=== PATIENT | male | born 1945 | race Caucasian/White ===

== ENCOUNTER 2019-04-16 15:41 | Inpatient (IN) | payer OTHER ==
--- OUTSIDE RECORDS SUMMARY | 2019-04-16 15:48 | XMS REPORT ---
:1945 Author Organization [facility] Address [address] [place] [address] Care Team Providers Name Role Phone Unavailable Unavailable Unavailable Payers Payer Name Policy Type Policy Number Effective Date Expiration Date Problems This patient has no known problems. Allergies, Adverse Reactions, Alerts Allergy Allergy Status Severity Reaction(s) Onset Inactive Treating Comments Name Type Date Date Clinician No Known DA Active U 2018-03 Allergies 21 00:00:0 0 Medications This patient has no known medications. Results Test Description Test Time Test Comments Text Results Atomic Results Result Comments B-TYPE NATRIURETIC PEPTIDE 2019-03-17 13:50:00 Test Item Value Reference Range Comments B-TYPE NATRIURETIC PEPTIDE (test code=BNP) 3013.0 PG/ML 0-100 CBC W/AUTO [id number] 12:08:00 Test Item Value Reference Range Comments WHITE BLOOD CELL (test code=WBC) 3.5 K/MM3 3.8-9.8 RED BLOOD CELL (test code=RBC) 2.50 M/MM3 3.95-5.67 HEMOGLOBIN (test code=HGB) 8.3 G/DL 12.4-16.7 HEMATOCRIT (test code=HCT) 24.4 % 35.9-49.5 MEAN CELL VOLUME (test code=MCV) 98 fL 81.7-96.1 MEAN CELL HGB (test code=MCH) 33.2 pg 27.6-33.2 MEAN CELL HGB CONCETRATION (test code=MCHC) 34.0 % 32.9-35.5 RED CELL DISTRIBUTION WIDTH (test code=RDW) 20.4 % 12.1-15.2 PLATELET COUNT (test code=PLT) 236 K/MM3 129-368 MEAN PLATELET VOLUME (test code=MPV) 12.4 fl 7.4-10.4 NEUTROPHIL % (test code=NT%) 87.6 % 43-75 IMMATURE GRANULOCYTE % (test code=IG%) 2.0 % 0.0-2.0 LYMPHOCYTE % (test code=LY%) 6.2 % 14-44 MONOCYTE % (test code=MO%) 4.2 % 4-13 EOSINOPHIL % (test code=EO%) 0.0 % 0-6 BASOPHIL % (test code=BA%) 0 % 0-2 NUCLEATED RBC % (test code=NRBC%) 2.8 % 0-1.0 NEUTROPHIL # (test code=NT#) 3.09 K/mm3 2.0-7.6 IMMATURE GRANULOCYTE # (test code=IG#) 0.07 x10 3/uL 0-0.03 LYMPHOCYTE # (test code=LY#) 0.22 K/mm3 1.0-3.8 MONOCYTE # (test code=MO#) 0.15 K/mm3 0.1-0.8 EOSINOPHIL # (test code=EO#) 0.00 K/mm3 0.0-0.2 BASOPHIL # (test code=BA#) 0 K/mm3 0.0-0.2 NUCLEATED RBC # (test code=NRBC#) 0.10 K/mm3 0.0-0.1 NUCLEATED RED BLOOD CELL (test code=NRBC) 13 0-0 DIFFERENTIAL [id number] 12:08:00 Test Item Value Reference Range Comments RBC MORPHOLOGY REQUIRED (test code=RBCM) ABNORMAL POIKILOCYTOSIS (test code=POIK) FEW NONE ANISOCYTOSIS (test code=ANISO) MODERATE NONE MACROCYTOSIS (test code=MACR) MODERATE NONE TARGET CELLS (test code=TGT) FEW NONE ELLIPTOCYTES (test code=ELL) FEW NONE OVALOCYTES (test code=OVAL) FEW NONE SCHISTOCYTES (test code=ASHLEY) FEW NONE PLATELET ESTIMATE (test code=PLTEST) ADEQUATE ADEQUATE PLATELET MORPHOLOGY (test code=PLTMORPH) NORMAL NORMAL BASIC METABOLIC [id number] 11:45:00 Test Item Value Reference Range Comments SODIUM (test code=NA) 126 MMOL/L 137-145 POTASSIUM (test code=K) 4.3 MMOL/L 3.5-5.1 CHLORIDE (test code=CL) 93 MMOL/L 98-107 CARBON DIOXIDE (test code=CO2) 28 MMOL/L 22-30 ANION GAP (test code=GAP) 9 MMOL/L 14-24 GLUCOSE (test code=GLU) 276 MG/DL 74-106 BLOOD UREA NITROGEN (test 63 MG/DL 9-20 code=BUN) GLOMERULAR FILTRATION RATE 30 Reporting units: ml/min/1.73 (test code=GFR) m2 (Modified MDRD Formula)Reference Range: > or=60 ml/min/1.73 m2 CREATININE (test code=CREAT) 2.20 MG/DL 0.66-1.25 CALCIUM (test code=CA) 7.5 MG/DL 8.4-10.2 [id number] 11:45:00 Test Item Value Reference Range Comments PHOSPHOROUS (test code=PHOS) 3.1 MG/DL 2.5-4.5 [id number] 11:45:00 Test Item Value Reference Range Comments MAGNESIUM (test code=MAG) 1.9 MG/DL 1.6-2.3 CBC W/AUTO [id number] 11:26:00 Test Item Value Reference Range Comments WHITE BLOOD CELL (test code=WBC) 3.5 K/MM3 3.8-9.8 RED BLOOD CELL (test code=RBC) 2.50 M/MM3 3.95-5.67 HEMOGLOBIN (test code=HGB) 8.3 G/DL 12.4-16.7 HEMATOCRIT (test code=HCT) 24.4 % 35.9-49.5 MEAN CELL VOLUME (test code=MCV) 98 fL 81.7-96.1 MEAN CELL HGB (test code=MCH) 33.2 pg 27.6-33.2 MEAN CELL HGB CONCETRATION (test code=MCHC) 34.0 % 32.9-35.5 RED CELL DISTRIBUTION WIDTH (test code=RDW) 20.4 % 12.1-15.2 PLATELET COUNT (test code=PLT) 236 K/MM3 129-368 MEAN PLATELET VOLUME (test code=MPV) 12.4 fl 7.4-10.4 NEUTROPHIL % (test code=NT%) 87.6 % 43-75 IMMATURE GRANULOCYTE % (test code=IG%) 2.0 % 0.0-2.0 LYMPHOCYTE % (test code=LY%) 6.2 % 14-44 MONOCYTE % (test code=MO%) 4.2 % 4-13 EOSINOPHIL % (test code=EO%) 0.0 % 0-6 BASOPHIL % (test code=BA%) 0 % 0-2 NUCLEATED RBC % (test code=NRBC%) 2.8 % 0-1.0 NEUTROPHIL # (test code=NT#) 3.09 K/mm3 2.0-7.6 IMMATURE GRANULOCYTE # (test code=IG#) 0.07 x10 3/uL 0-0.03 LYMPHOCYTE # (test code=LY#) 0.22 K/mm3 1.0-3.8 MONOCYTE # (test code=MO#) 0.15 K/mm3 0.1-0.8 EOSINOPHIL # (test code=EO#) 0.00 K/mm3 0.0-0.2 BASOPHIL # (test code=BA#) 0 K/mm3 0.0-0.2 NUCLEATED RBC # (test code=NRBC#) 0.10 K/mm3 0.0-0.1 DIFFERENTIAL [id number] 11:26:00 Test Item Value Reference Range Comments RBC MORPHOLOGY REQUIRED (test code=RBCM) PLATELET ESTIMATE (test code=PLTEST) ADEQUATE PLATELET MORPHOLOGY (test code=PLTMORPH) NORMAL CBC W/AUTO [id number] 11:26:00 Test Item Value Reference Range Comments WHITE BLOOD CELL (test code=WBC) 3.5 K/MM3 3.8-9.8 RED BLOOD CELL (test code=RBC) 2.50 M/MM3 3.95-5.67 HEMOGLOBIN (test code=HGB) 8.3 G/DL 12.4-16.7 HEMATOCRIT (test code=HCT) 24.4 % 35.9-49.5 MEAN CELL VOLUME (test code=MCV) 98 fL 81.7-96.1 MEAN CELL HGB (test code=MCH) 33.2 pg 27.6-33.2 MEAN CELL HGB CONCETRATION (test code=MCHC) 34.0 % 32.9-35.5 RED CELL DISTRIBUTION WIDTH (test code=RDW) 20.4 % 12.1-15.2 PLATELET COUNT (test code=PLT) 236 K/MM3 129-368 MEAN PLATELET VOLUME (test code=MPV) 12.4 fl 7.4-10.4 NEUTROPHIL % (test code=NT%) 87.6 % 43-75 IMMATURE GRANULOCYTE % (test code=IG%) 2.0 % 0.0-2.0 LYMPHOCYTE % (test code=LY%) 6.2 % 14-44 MONOCYTE % (test code=MO%) 4.2 % 4-13 EOSINOPHIL % (test code=EO%) 0.0 % 0-6 BASOPHIL % (test code=BA%) 0 % 0-2 NUCLEATED RBC % (test code=NRBC%) 2.8 % 0-1.0 NEUTROPHIL # (test code=NT#) 3.09 K/mm3 2.0-7.6 IMMATURE GRANULOCYTE # (test code=IG#) 0.07 x10 3/uL 0-0.03 LYMPHOCYTE # (test code=LY#) 0.22 K/mm3 1.0-3.8 MONOCYTE # (test code=MO#) 0.15 K/mm3 0.1-0.8 EOSINOPHIL # (test code=EO#) 0.00 K/mm3 0.0-0.2 BASOPHIL # (test code=BA#) 0 K/mm3 0.0-0.2 NUCLEATED RBC # (test code=NRBC#) 0.10 K/mm3 0.0-0.1 DIFFERENTIAL [id number] 11:26:00 Test Item Value Reference Range Comments RBC MORPHOLOGY REQUIRED (test code=RBCM) PLATELET ESTIMATE (test code=PLTEST) ADEQUATE PLATELET MORPHOLOGY (test code=PLTMORPH) NORMAL GLUCOSE BEDSIDE [id number] 11:25:00 Test Item Value Reference Range Comments GLUCOSE BEDSIDE TESTING (test code=GLUBED) 290 MG/DL 60-99 GLUCOSE BEDSIDE [id number] 07:42:00 Test Item Value Reference Range Comments GLUCOSE BEDSIDE TESTING (test code=GLUBED) 242 MG/DL 60-99 - XR CHEST [id number] 07:28:00 Patient Name: SOLO REARDON Unit No: [id number] EXAMS: CPT CODE: [id number] XR CHEST 1V 45978 Portable AP Chest, 1 view Location Code: B2 CLINICAL HISTORY: CHF COMPARISON: 03/16/2019, CT dated 03/11/2019 FINDINGS: Left lowerlobe consolidation with small adjacent effusion is stable. Trace effusion with mild right basilar airspace disease is suspected, as well. Background mild central congestion remains. Emphysematous changes again noted. Cardiomegaly is stable. Calcification of the aortic arch again noted. The bones are intact. IMPRESSION : 1. Stable left greater than right bilateral lower lobe atelectasis and/or pneumonia with small adjacent effusions. 2. Moderate emphysema. 3. Cardiomegaly and atherosclerosis. Electronically Signed by Elvis Mehta on at 0728 Reported and signed by: Rolando Mehta M.D. CC: Adam Weber MD; Aubrey Oliva Technologist: Antonio Macias, RT(R) Transcrpt Date/Tm/Trnsp: 03/17/2019 (07) [id number] Orig Print D/T: S: 03/17/2019 (0731) [facility] NAME: SOLO REARDON [id number] PHYS: [place] [address] : 1945 AGE: 73 SEX: M LOC: Z.344 A PHONE #: [phone] EXAM DATE: 03/17/2019 STATUS: ADM IN FAX #: [phone] RADIOLOGY NO: PAGE 1 Signed ReportGLUCOSE BEDSIDE [id number] 21:26:00 Test Item Value Reference Range Comments GLUCOSE BEDSIDE TESTING (test code=GLUBED) 288 MG/DL 60-99 GLUCOSE BEDSIDE [id number] 16:55:00 Test Item Value Reference Range Comments GLUCOSE BEDSIDE TESTING (test code=GLUBED) 244 MG/DL 60-99 GLUCOSE BEDSIDE [id number] 12:42:00 Test Item Value Reference Range Comments GLUCOSE BEDSIDE TESTING (test code=GLUBED) 224 MG/DL 60-99 - XR CHEST [id number] 12:05:00 Patient Name: SOLO REARDON Luis Unit No: [id number] EXAMS: CPT CODE: [id number] XR CHEST 1V 29740 Examination: Chest 1 view Location code: S17 Comparison: Chest March 11, 2019 Discussion: Clinical history is remarkable for shortness of breath, CHF, pneumonia. Cardiac silhouette is enlarged, basilar atelectaticchanges versus infiltrates are noted. There is a small left effusion. Impression: Lateral basilar atelectasis versus infiltrate, small left effusion. at 1205 Reported and signed by: Corona Patel M.D. CC: Yg Betancur; Adam Hernandez MD Technologist: Joya Lee RT (R) Transcrpt Date/Tm/Trnsp: 03/16/2019 (1205) [id number] Orig Print D/T: S: 03/16/2019 (0321) [facility] NAME: SOLO REARDON [address] PHYS: [email or web address] - [place] [address] : 1945 AGE: 73 SEX: M LOC: Z.344 A PHONE #: [phone] EXAM DATE: STATUS: ADM IN FAX #: [phone] RADIOLOGY NO: PAGE 1 Signed ReportGLUCOSE BEDSIDE [id number] 08:17:00 Test Item Value Reference Range Comments GLUCOSE BEDSIDE TESTING (test code=GLUBED) 165 MG/DL 60-99 B-TYPE NATRIURETIC [id number] 05:56:00 Test Item Value Reference Range Comments B-TYPE NATRIURETIC PEPTIDE (test code=BNP) 3495.0 PG/ML 0-100 BASIC METABOLIC [id number] 05:38:00 Test Item Value Reference Range Comments SODIUM (test code=NA) 127 MMOL/L 137-145 POTASSIUM (test code=K) 4.3 MMOL/L 3.5-5.1 CHLORIDE (test code=CL) 95 MMOL/L 98-107 CARBON DIOXIDE (test code=CO2) 27 MMOL/L 22-30 ANION GAP (test code=GAP) 9 MMOL/L 14-24 GLUCOSE (test code=GLU) 133 MG/DL 74-106 BLOOD UREA NITROGEN (test 53 MG/DL 9-20 code=BUN) GLOMERULAR FILTRATION RATE 28 Reporting units: ml/min/1.73 (test code=GFR) m2 (Modified MDRD Formula)Reference Range: > or=60 ml/min/1.73 m2 CREATININE (test code=CREAT) 2.30 MG/DL 0.66-1.25 CALCIUM (test code=CA) 7.5 MG/DL 8.4-10.2 BASIC METABOLIC [id number] 05:29:00 Test Item Value Reference Range Comments SODIUM (test code=NA) 127 MMOL/L 137-145 POTASSIUM (test code=K) 4.3 MMOL/L 3.5-5.1 CHLORIDE (test code=CL) 95 MMOL/L 98-107 CARBON DIOXIDE (test code=CO2) MMOL/L 22-30 GLUCOSE (test code=GLU) MG/DL 74-106 BLOOD UREA NITROGEN (test code=BUN) MG/DL 9-20 GLOMERULAR FILTRATION RATE (test code=GFR) CREATININE (test code=CREAT) MG/DL 0.66-1.25 CALCIUM (test code=CA) MG/DL 8.7-9.7 BASIC METABOLIC [id number] 05:28:00 Test Item Value Reference Range Comments SODIUM (test code=NA) MMOL/L 137-145 POTASSIUM (test code=K) MMOL/L 3.5-5.1 CHLORIDE (test code=CL) 95 MMOL/L 98-107 CARBON DIOXIDE (test code=CO2) MMOL/L 22-30 GLUCOSE (test code=GLU) MG/DL 74-106 BLOOD UREA NITROGEN (test code=BUN) MG/DL 9-20 GLOMERULAR FILTRATION RATE (test code=GFR) CREATININE (test code=CREAT) MG/DL 0.66-1.25 CALCIUM (test code=CA) MG/DL 8.7-9.7 CBC W/AUTO [id number] 05:17:00 Test Item Value Reference Range Comments WHITE BLOOD CELL (test code=WBC) 3.4 K/MM3 3.8-9.8 RED BLOOD CELL (test code=RBC) 2.48 M/MM3 3.95-5.67 HEMOGLOBIN (test code=HGB) 8.2 G/DL 12.4-16.7 HEMATOCRIT (test code=HCT) 24.6 % 35.9-49.5 MEAN CELL VOLUME (test code=MCV) 99 fL 81.7-96.1 MEAN CELL HGB (test code=MCH) 33.1 pg 27.6-33.2 MEAN CELL HGB CONCETRATION (test code=MCHC) 33.3 % 32.9-35.5 RED CELL DISTRIBUTION WIDTH (test code=RDW) 20.3 % 12.1-15.2 PLATELET COUNT (test code=PLT) 189 K/MM3 129-368 MEAN PLATELET VOLUME (test code=MPV) 12.6 fl 7.4-10.4 NEUTROPHIL % (test code=NT%) 79.7 % 43-75 IMMATURE GRANULOCYTE % (test code=IG%) 1.8 % 0.0-2.0 LYMPHOCYTE % (test code=LY%) 8.1 % 14-44 MONOCYTE % (test code=MO%) 10.4 % 4-13 EOSINOPHIL % (test code=EO%) 0.0 % 0-6 BASOPHIL % (test code=BA%) 0 % 0-2 NUCLEATED RBC % (test code=NRBC%) 3.6 % 0-1.0 NEUTROPHIL # (test code=NT#) 2.67 K/mm3 2.0-7.6 IMMATURE GRANULOCYTE # (test code=IG#) 0.06 x10 3/uL 0-0.03 LYMPHOCYTE # (test code=LY#) 0.27 K/mm3 1.0-3.8 MONOCYTE # (test code=MO#) 0.35 K/mm3 0.1-0.8 EOSINOPHIL # (test code=EO#) 0.00 K/mm3 0.0-0.2 BASOPHIL # (test code=BA#) 0 K/mm3 0.0-0.2 NUCLEATED RBC # (test code=NRBC#) 0.12 K/mm3 0.0-0.1 DIFFERENTIAL [id number] 05:17:00 Test Item Value Reference Range Comments RBC MORPHOLOGY REQUIRED (test code=RBCM) PLATELET ESTIMATE (test code=PLTEST) ADEQUATE PLATELET MORPHOLOGY (test code=PLTMORPH) NORMAL CBC W/AUTO [id number] 05:17:00 Test Item Value Reference Range Comments WHITE BLOOD CELL (test code=WBC) 3.4 K/MM3 3.8-9.8 RED BLOOD CELL (test code=RBC) 2.48 M/MM3 3.95-5.67 HEMOGLOBIN (test code=HGB) 8.2 G/DL 12.4-16.7 HEMATOCRIT (test code=HCT) 24.6 % 35.9-49.5 MEAN CELL VOLUME (test code=MCV) 99 fL 81.7-96.1 MEAN CELL HGB (test code=MCH) 33.1 pg 27.6-33.2 MEAN CELL HGB CONCETRATION (test code=MCHC) 33.3 % 32.9-35.5 RED CELL DISTRIBUTION WIDTH (test code=RDW) 20.3 % 12.1-15.2 PLATELET COUNT (test code=PLT) 189 K/MM3 129-368 MEAN PLATELET VOLUME (test code=MPV) 12.6 fl 7.4-10.4 NEUTROPHIL % (test code=NT%) 79.7 % 43-75 IMMATURE GRANULOCYTE % (test code=IG%) 1.8 % 0.0-2.0 LYMPHOCYTE % (test code=LY%) 8.1 % 14-44 MONOCYTE % (test code=MO%) 10.4 % 4-13 EOSINOPHIL % (test code=EO%) 0.0 % 0-6 BASOPHIL % (test code=BA%) 0 % 0-2 NUCLEATED RBC % (test code=NRBC%) 3.6 % 0-1.0 NEUTROPHIL # (test code=NT#) 2.67 K/mm3 2.0-7.6 IMMATURE GRANULOCYTE # (test code=IG#) 0.06 x10 3/uL 0-0.03 LYMPHOCYTE # (test code=LY#) 0.27 K/mm3 1.0-3.8 MONOCYTE # (test code=MO#) 0.35 K/mm3 0.1-0.8 EOSINOPHIL # (test code=EO#) 0.00 K/mm3 0.0-0.2 BASOPHIL # (test code=BA#) 0 K/mm3 0.0-0.2 NUCLEATED RBC # (test code=NRBC#) 0.12 K/mm3 0.0-0.1 DIFFERENTIAL [id number] 05:17:00 Test Item Value Reference Range Comments RBC MORPHOLOGY REQUIRED (test code=RBCM) PLATELET ESTIMATE (test code=PLTEST) ADEQUATE PLATELET MORPHOLOGY (test code=PLTMORPH) NORMAL GLUCOSE BEDSIDE [id number] 20:24:00 Test Item Value Reference Range Comments GLUCOSE BEDSIDE TESTING (test code=GLUBED) 323 MG/DL 60-99 Notified Nurse~ [id number] 18:16:00 Test Item Value Reference Range Comments VANCOMYCIN (test code=VANCO) 16.0 mcg/ML 5.0-26.0 GLUCOSE BEDSIDE [id number] 17:41:00 Test Item Value Reference Range Comments GLUCOSE BEDSIDE TESTING (test code=GLUBED) 281 MG/DL 60-99 GLUCOSE BEDSIDE [id number] 13:04:00 Test Item Value Reference Range Comments GLUCOSE BEDSIDE TESTING (test code=GLUBED) 312 MG/DL 60-99 Notified Nurse~ - XR SWLW FUNC W/C [id number] 12:23:00 Patient Name: SOLO REARDON Unit No: [id number] EXAMS: CPT CODE: [id number] XR SWLW FUNC W/C V [id number] EXAM: - XR SWLW FUNC W/C V Location: B2 HISTORY:Dysphagia COMPARISON: None available at time of interpretation. FINDINGS: Fluoroscopy time: 1.1 minutes. One fluoroscopic image obtained. Fluoroscopic images of the oral cavity, pharynx, and upper airway while the patient ingested multiple consistencies of barium. No aspiration or penetration was seen. IMPRESSION: No aspiration or penetration. Please refer to speech pathologist report for full details. at 1223 Reported and signed by: Dominique Harmon MD CC: Dilshad Harvey MD; Adam Hernandez MD Technologist: Darrel Cruz, RT(R) Transcrpt Date/Tm/Trnsp: 03/15/2019 (1223) [email or web address] Orig Print D/T : S: 03/15/2019 (1226) [facility] NAME: SOLO REARDON [address] PHYS: [place] [address] : 1944 AGE: 73 SEX: M LOC: Z.344 A PHONE #: [phone] EXAM DATE: 03/15/2019 STATUS: ADM IN FAX #: [phone] RADIOLOGY NO: PAGE 1 Signed ReportGLUCOSE BEDSIDE [id number] 08:26:00 Test Item Value Reference Range Comments GLUCOSE BEDSIDE TESTING (test code=GLUBED) 253 MG/DL 60-99 CBC W/MANUAL [id number] 07:42:00 Test Item Value Reference Range Comments WHITE BLOOD CELL (test code=WBC) 3.0 K/MM3 3.8-9.8 RED BLOOD CELL (test code=RBC) 2.50 M/MM3 3.95-5.67 HEMOGLOBIN (test code=HGB) 8.4 G/DL 12.4-16.7 HEMATOCRIT (test code=HCT) 24.8 % 35.9-49.5 MEAN CELL VOLUME (test code=MCV) 99 fL 81.7-96.1 MEAN CELL HGB (test code=MCH) 33.6 pg 27.6-33.2 MEAN CELL HGB CONCETRATION (test code=MCHC) 33.9 % 32.9-35.5 RED CELL DISTRIBUTION WIDTH (test code=RDW) 20.5 % 12.1-15.2 PLATELET COUNT (test code=PLT) 135 K/MM3 129-368 NEUTROPHIL # (test code=NT#) 2.44 K/mm3 2.0-7.6 IMMATURE GRANULOCYTE # (test code=IG#) 0.05 x10 3/uL 0-0.03 LYMPHOCYTE # (test code=LY#) 0.25 K/mm3 1.0-3.8 MONOCYTE # (test code=MO#) 0.29 K/mm3 0.1-0.8 EOSINOPHIL # (test code=EO#) 0.00 K/mm3 0.0-0.2 BASOPHIL # (test code=BA#) 0 K/mm3 0.0-0.2 NUCLEATED RBC # (test code=NRBC#) 0.09 K/mm3 0.0-0.1 RBC MORPHOLOGY REQUIRED (test code=RBCM) ABNORMAL TOTAL CELLS COUNTED (test code=TCC) 130 #CELLS SEGMENTED NEUTROPHILS (test code=SEG) 93.3 % 36.2-73.8 BAND NEUTROPHIL (test code=BAND) 0.8 % 0-10 LYMPHOCYTE (test code=LYMPH) 0.9 % 12.9-45.1 ATYPICAL LYMPH (test code=ALYMPH) 0.0 % 0-0 MONOCYTE (test code=MON) 4.2 % 0-11 NUCLEATED RED BLOOD CELL (test code=NRBC) 3 0-0 PLASMA CELL (test code=SUSANNAH) 0.8 % 0-48 POIKILOCYTOSIS (test code=POIK) FEW NONE ANISOCYTOSIS (test code=ANISO) MODERATE NONE MACROCYTOSIS (test code=MACR) FEW NONE PLATELET ESTIMATE (test code=PLTEST) ADEQUATE ADEQUATE PLATELET MORPHOLOGY (test code=PLTMORPH) NORMAL NORMAL B-TYPE NATRIURETIC [id number] 05:56:00 Test Item Value Reference Range Comments B-TYPE NATRIURETIC PEPTIDE (test code=BNP) 2478.0 PG/ML 0-100 BASIC METABOLIC [id number] 05:41:00 Test Item Value Reference Range Comments SODIUM (test code=NA) 126 MMOL/L 137-145 POTASSIUM (test code=K) 4.4 MMOL/L 3.5-5.1 CHLORIDE (test code=CL) 95 MMOL/L 98-107 CARBON DIOXIDE (test code=CO2) 25 MMOL/L 22-30 GLUCOSE (test code=GLU) 216 MG/DL 74-106 BLOOD UREA NITROGEN (test 45 MG/DL 9-20 code=BUN) GLOMERULAR FILTRATION RATE 26 Reporting units: ml/min/1.73 (test code=GFR) m2 (Modified MDRD Formula)Reference Range: > or=60 ml/min/1.73 m2 CREATININE (test code=CREAT) 2.50 MG/DL 0.66-1.25 CALCIUM (test code=CA) 7.4 MG/DL 8.4-10.2 [id number] 05:41:00 Test Item Value Reference Range Comments PHOSPHOROUS (test code=PHOS) 3.6 MG/DL 2.5-4.5 [id number] 05:41:00 Test Item Value Reference Range Comments MAGNESIUM (test code=MAG) 2.5 MG/DL 1.6-2.3 BASIC METABOLIC [id number] 05:39:00 Test Item Value Reference Range Comments SODIUM (test code=NA) 126 MMOL/L 137-145 POTASSIUM (test code=K) 4.4 MMOL/L 3.5-5.1 CHLORIDE (test code=CL) 95 MMOL/L 98-107 CARBON DIOXIDE (test code=CO2) 25 MMOL/L 22-30 GLUCOSE (test code=GLU) MG/DL 74-106 BLOOD UREA NITROGEN (test 45 MG/DL 9-20 code=BUN) GLOMERULAR FILTRATION RATE 26 Reporting units: ml/min/1.73 (test code=GFR) m2 (Modified MDRD Formula)Reference Range: > or=60 ml/min/1.73 m2 CREATININE (test code=CREAT) 2.50 MG/DL 0.66-1.25 CALCIUM (test code=CA) MG/DL 8.7-9.7 [id number] 05:39:00 Test Item Value Reference Range Comments PHOSPHOROUS (test code=PHOS) MG/DL 2.5-4.5 [id number] 05:39:00 Test Item Value Reference Range Comments MAGNESIUM (test code=MAG) MG/DL 1.6-2.3 BASIC METABOLIC [id number] 05:36:00 Test Item Value Reference Range Comments SODIUM (test code=NA) 126 MMOL/L 137-145 POTASSIUM (test code=K) 4.4 MMOL/L 3.5-5.1 CHLORIDE (test code=CL) 95 MMOL/L 98-107 CARBON DIOXIDE (test code=CO2) MMOL/L 22-30 GLUCOSE (test code=GLU) MG/DL 74-106 BLOOD UREA NITROGEN (test code=BUN) MG/DL 9-20 GLOMERULAR FILTRATION RATE (test code=GFR) CREATININE (test code=CREAT) MG/DL 0.66-1.25 CALCIUM (test code=CA) MG/DL 8.7-9.7 [id number] 05:36:00 Test Item Value Reference Range Comments PHOSPHOROUS (test code=PHOS) MG/DL 2.5-4.5 [id number] 05:36:00 Test Item Value Reference Range Comments MAGNESIUM (test code=MAG) MG/DL 1.6-2.3 CBC W/MANUAL [id number] 05:15:00 Test Item Value Reference Range Comments WHITE BLOOD CELL (test code=WBC) 3.0 K/MM3 3.8-9.8 RED BLOOD CELL (test code=RBC) 2.50 M/MM3 3.95-5.67 HEMOGLOBIN (test code=HGB) 8.4 G/DL 12.4-16.7 HEMATOCRIT (test code=HCT) 24.8 % 35.9-49.5 MEAN CELL VOLUME (test code=MCV) 99 fL 81.7-96.1 MEAN CELL HGB (test code=MCH) 33.6 pg 27.6-33.2 MEAN CELL HGB CONCETRATION (test code=MCHC) 33.9 % 32.9-35.5 RED CELL DISTRIBUTION WIDTH (test code=RDW) 20.5 % 12.1-15.2 PLATELET COUNT (test code=PLT) 135 K/MM3 129-368 NEUTROPHIL # (test code=NT#) 2.44 K/mm3 2.0-7.6 IMMATURE GRANULOCYTE # (test code=IG#) 0.05 x10 3/uL 0-0.03 LYMPHOCYTE # (test code=LY#) 0.25 K/mm3 1.0-3.8 MONOCYTE # (test code=MO#) 0.29 K/mm3 0.1-0.8 EOSINOPHIL # (test code=EO#) 0.00 K/mm3 0.0-0.2 BASOPHIL # (test code=BA#) 0 K/mm3 0.0-0.2 NUCLEATED RBC # (test code=NRBC#) 0.09 K/mm3 0.0-0.1 RBC MORPHOLOGY REQUIRED (test code=RBCM) TOTAL CELLS COUNTED (test code=TCC) #CELLS SEGMENTED NEUTROPHILS (test code=SEG) % 36.2-73.8 LYMPHOCYTE (test code=LYMPH) % 12.9-45.1 MONOCYTE (test code=MON) % 0-11 PLATELET ESTIMATE (test code=PLTEST) ADEQUATE PLATELET MORPHOLOGY (test code=PLTMORPH) NORMAL GLUCOSE BEDSIDE [id number] 20:23:00 Test Item Value Reference Range Comments GLUCOSE BEDSIDE TESTING (test code=GLUBED) 243 MG/DL 60-99 CBC W/O [id number] 07:35:00 Test Item Value Reference Range Comments WHITE BLOOD CELL (test 1.9 K/MM3 3.8-9.8 CALLED TO Britt Alberto Imu code=WBC) & READBACK ON 03/14/19 AT 0545 BY Albaro Chacon RED BLOOD CELL (test code=RBC) 2.62 M/MM3 3.95-5.67 HEMOGLOBIN (test code=HGB) 8.7 G/DL 12.4-16.7 HEMATOCRIT (test code=HCT) 25.3 % 35.9-49.5 MEAN CELL VOLUME (test 97 fL 81.7-96.1 code=MCV) MEAN CELL HGB (test code=MCH) 33.2 pg 27.6-33.2 MEAN CELL HGB CONCETRATION 34.4 % 32.9-35.5 (test code=MCHC) RED CELL DISTRIBUTION WIDTH 20.7 % 12.1-15.2 (test code=RDW) PLATELET COUNT (test code=PLT) 73 K/MM3 129-368 NEUTROPHIL # (test code=NT#) 1.57 K/mm3 2.0-7.6 IMMATURE GRANULOCYTE # (test 0.06 x10 3/uL 0-0.03 code=IG#) LYMPHOCYTE # (test code=LY#) 0.17 K/mm3 1.0-3.8 MONOCYTE # (test code=MO#) 0.08 K/mm3 0.1-0.8 EOSINOPHIL # (test code=EO#) 0.00 K/mm3 0.0-0.2 BASOPHIL # (test code=BA#) 0 K/mm3 0.0-0.2 NUCLEATED RBC # (test 0.05 K/mm3 0.0-0.1 code=NRBC#) DIFFERENTIAL [id number] 07:35:00 Test Item Value Reference Range Comments RBC MORPHOLOGY REQUIRED (test code=RBCM) ABNORMAL POLYCHROMASIA (test code=POLC) FEW NONE POIKILOCYTOSIS (test code=POIK) FEW NONE ANISOCYTOSIS (test code=ANISO) MODERATE NONE PLATELET ESTIMATE (test code=PLTEST) DECREASED ADEQUATE PLATELET MORPHOLOGY (test code=PLTMORPH) NORMAL NORMAL WBC [id number] 07:35:00 Test Item Value Reference Range Comments TOTAL CELLS COUNTED (test code=TCC) 130 #CELLS SEGMENTED NEUTROPHILS (test code=SEG) 91.5 % 36.2-73.8 BAND NEUTROPHIL (test code=BAND) 3.4 % 0-10 LYMPHOCYTE (test code=LYMPH) 1.7 % 12.9-45.1 ATYPICAL LYMPH (test code=ALYMPH) 0.9 % 0-0 MONOCYTE (test code=MON) 0.0 % 0-11 METAMYELOCYTE (test code=META) 0.8 % 0-0 MYELOCYTE (test code=MYELO) 0.8 % 0-0 PROMYELOCYTE (test code=PROM) 0.9 % 0-0 NUCLEATED RED BLOOD CELL (test code=NRBC) 2 0-0 B-TYPE NATRIURETIC [id number] 06:34:00 Test Item Value Reference Range Comments B-TYPE NATRIURETIC PEPTIDE (test code=BNP) 1270.0 PG/ML 0-100 BASIC METABOLIC [id number] 05:56:00 Test Item Value Reference Range Comments SODIUM (test code=NA) 126 MMOL/L 137-145 POTASSIUM (test code=K) 4.2 MMOL/L 3.5-5.1 CHLORIDE (test code=CL) 94 MMOL/L 98-107 CARBON DIOXIDE (test code=CO2) 26 MMOL/L 22-30 GLUCOSE (test code=GLU) 240 MG/DL 74-106 BLOOD UREA NITROGEN (test 40 MG/DL 9-20 code=BUN) GLOMERULAR FILTRATION RATE 22 Reporting units: ml/min/1.73 (test code=GFR) m2 (Modified MDRD Formula)Reference Range: > or=60 ml/min/1.73 m2 CREATININE (test code=CREAT) 2.80 MG/DL 0.66-1.25 CALCIUM (test code=CA) 7.4 MG/DL 8.4-10.2 [id number] 05:56:00 Test Item Value Reference Range Comments PHOSPHOROUS (test code=PHOS) 3.7 MG/DL 2.5-4.5 [id number] 05:56:00 Test Item Value Reference Range Comments MAGNESIUM (test code=MAG) 3.0 MG/DL 1.6-2.3 BASIC METABOLIC [id number] 05:55:00 Test Item Value Reference Range Comments SODIUM (test code=NA) 126 MMOL/L 137-145 POTASSIUM (test code=K) 4.2 MMOL/L 3.5-5.1 CHLORIDE (test code=CL) 94 MMOL/L 98-107 CARBON DIOXIDE (test code=CO2) 26 MMOL/L 22-30 GLUCOSE (test code=GLU) MG/DL 74-106 BLOOD UREA NITROGEN (test 40 MG/DL 9-20 code=BUN) GLOMERULAR FILTRATION RATE 22 Reporting units: ml/min/1.73 (test code=GFR) m2 (Modified MDRD Formula)Reference Range: > or=60 ml/min/1.73 m2 CREATININE (test code=CREAT) 2.80 MG/DL 0.66-1.25 CALCIUM (test code=CA) MG/DL 8.7-9.7 [id number] 05:55:00 Test Item Value Reference Range Comments PHOSPHOROUS (test code=PHOS) MG/DL 2.5-4.5 [id number] 05:55:00 Test Item Value Reference Range Comments MAGNESIUM (test code=MAG) MG/DL 1.6-2.3 BASIC METABOLIC [id number] 05:52:00 Test Item Value Reference Range Comments SODIUM (test code=NA) 126 MMOL/L 137-145 POTASSIUM (test code=K) 4.2 MMOL/L 3.5-5.1 CHLORIDE (test code=CL) 94 MMOL/L 98-107 CARBON DIOXIDE (test code=CO2) MMOL/L 22-30 GLUCOSE (test code=GLU) MG/DL 74-106 BLOOD UREA NITROGEN (test code=BUN) MG/DL 9-20 GLOMERULAR FILTRATION RATE (test code=GFR) CREATININE (test code=CREAT) MG/DL 0.66-1.25 CALCIUM (test code=CA) MG/DL 8.7-9.7 [id number] 05:52:00 Test Item Value Reference Range Comments PHOSPHOROUS (test code=PHOS) MG/DL 2.5-4.5 [id number] 05:52:00 Test Item Value Reference Range Comments MAGNESIUM (test code=MAG) MG/DL 1.6-2.3 CBC W/O [id number] 05:52:00 Test Item Value Reference Range Comments WHITE BLOOD CELL (test 1.9 K/MM3 3.8-9.8 CALLED TO Britt Alberto Imu code=WBC) & READBACK ON 03/14/19 AT 0545 BY Albaro Chacon RED BLOOD CELL (test code=RBC) 2.62 M/MM3 3.95-5.67 HEMOGLOBIN (test code=HGB) 8.7 G/DL 12.4-16.7 HEMATOCRIT (test code=HCT) 25.3 % 35.9-49.5 MEAN CELL VOLUME (test 97 fL 81.7-96.1 code=MCV) MEAN CELL HGB (test code=MCH) 33.2 pg 27.6-33.2 MEAN CELL HGB CONCETRATION 34.4 % 32.9-35.5 (test code=MCHC) RED CELL DISTRIBUTION WIDTH 20.7 % 12.1-15.2 (test code=RDW) PLATELET COUNT (test code=PLT) 73 K/MM3 129-368 NEUTROPHIL # (test code=NT#) 1.57 K/mm3 2.0-7.6 IMMATURE GRANULOCYTE # (test 0.06 x10 3/uL 0-0.03 code=IG#) LYMPHOCYTE # (test code=LY#) 0.17 K/mm3 1.0-3.8 MONOCYTE # (test code=MO#) 0.08 K/mm3 0.1-0.8 EOSINOPHIL # (test code=EO#) 0.00 K/mm3 0.0-0.2 BASOPHIL # (test code=BA#) 0 K/mm3 0.0-0.2 NUCLEATED RBC # (test 0.05 K/mm3 0.0-0.1 code=NRBC#) DIFFERENTIAL [id number] 05:52:00 Test Item Value Reference Range Comments RBC MORPHOLOGY REQUIRED (test code=RBCM) PLATELET ESTIMATE (test code=PLTEST) ADEQUATE PLATELET MORPHOLOGY (test code=PLTMORPH) NORMAL WBC [id number] 05:52:00 Test Item Value Reference Range Comments TOTAL CELLS COUNTED (test code=TCC) #CELLS SEGMENTED NEUTROPHILS (test code=SEG) % 36.2-73.8 LYMPHOCYTE (test code=LYMPH) % 12.9-45.1 MONOCYTE (test code=MON) % 0-11 CBC W/AUTO [id number] 05:52:00 Test Item Value Reference Range Comments WHITE BLOOD CELL (test 1.9 K/MM3 3.8-9.8 CALLED TO Britt Alberto Imu code=WBC) & READBACK ON 03/14/19 AT 0545 BY Albaro Chacon RED BLOOD CELL (test code=RBC) 2.62 M/MM3 3.95-5.67 HEMOGLOBIN (test code=HGB) 8.7 G/DL 12.4-16.7 HEMATOCRIT (test code=HCT) 25.3 % 35.9-49.5 MEAN CELL VOLUME (test 97 fL 81.7-96.1 code=MCV) MEAN CELL HGB (test code=MCH) 33.2 pg 27.6-33.2 MEAN CELL HGB CONCETRATION 34.4 % 32.9-35.5 (test code=MCHC) RED CELL DISTRIBUTION WIDTH 20.7 % 12.1-15.2 (test code=RDW) PLATELET COUNT (test code=PLT) 73 K/MM3 129-368 MEAN PLATELET VOLUME (test 12.0 fl 7.4-10.4 code=MPV) NEUTROPHIL % (test code=NT%) 83.5 % 43-75 IMMATURE GRANULOCYTE % (test 3.2 % 0.0-2.0 code=IG%) LYMPHOCYTE % (test code=LY%) 9.0 % 14-44 MONOCYTE % (test code=MO%) 4.3 % 4-13 EOSINOPHIL % (test code=EO%) 0.0 % 0-6 BASOPHIL % (test code=BA%) 0 % 0-2 NUCLEATED RBC % (test 2.7 % 0-1.0 code=NRBC%) NEUTROPHIL # (test code=NT#) 1.57 K/mm3 2.0-7.6 IMMATURE GRANULOCYTE # (test 0.06 x10 3/uL 0-0.03 code=IG#) LYMPHOCYTE # (test code=LY#) 0.17 K/mm3 1.0-3.8 MONOCYTE # (test code=MO#) 0.08 K/mm3 0.1-0.8 EOSINOPHIL # (test code=EO#) 0.00 K/mm3 0.0-0.2 BASOPHIL # (test code=BA#) 0 K/mm3 0.0-0.2 NUCLEATED RBC # (test 0.05 K/mm3 0.0-0.1 code=NRBC#) WBC [id number] 05:52:00 Test Item Value Reference Range Comments RBC MORPHOLOGY REQUIRED (test code=RBCM) TOTAL CELLS COUNTED (test code=TCC) #CELLS SEGMENTED NEUTROPHILS (test code=SEG) % 36.2-73.8 LYMPHOCYTE (test code=LYMPH) % 12.9-45.1 MONOCYTE (test code=MON) % 0-11 PLATELET ESTIMATE (test code=PLTEST) ADEQUATE PLATELET MORPHOLOGY (test code=PLTMORPH) NORMAL PROCALCITONIN (PCT)2019-03-13 20:47:00 Test Item Value Reference Range Comments PROCALCITONIN (PCT) (test 1.80 NG/ML PROCALCITONIN (PCT) NORMAL code=PROCAL) RANGE (ADULT):<0.05 NG/ML. - a concentration < 0.5 ng/mL represents a low risk ofsevere sepsis and/or septic shock. - a concentration > 2 ng/mL represents a high risk ofsevere sepsis and/or septic shock. Nevertheless, concentrations < 0.5 ng/mL do not exclude aninfection, on account of localized infections (withoutsystemic signs) which can be associated with such lowconcentrations, or a systemic infection in its initialstages (< 6 hours). Furthermore, increased procalcitonincan occur without infection. PCT concentrations between 0.5and 2.0 ng/mL should be interpreted taking into account thepatient's history. It is recommended to retest PCT within 6-24 hours if any concentrations < 2 ng/mL are obtained. GLUCOSE BEDSIDE [id number] 20:40:00 Test Item Value Reference Range Comments GLUCOSE BEDSIDE TESTING (test code=GLUBED) 192 MG/DL 60-99 GLUCOSE BEDSIDE [id number] 20:40:00 Test Item Value Reference Range Comments GLUCOSE BEDSIDE TESTING (test code=GLUBED) 198 MG/DL 60-99 [id number] 18:40:00 Test Item Value Reference Range Comments VANCOMYCIN (test code=VANCO) 11.8 mcg/ML 5.0-26.0 CBC W/O [id number] 12:33:00 Test Item Value Reference Range Comments WHITE BLOOD CELL (test 2.4 K/MM3 3.8-9.8 CALLED TO Aparna M & code=WBC) READBACK ON 03/13/19 AT 0439 BY Albaro Chacon RED BLOOD CELL (test code=RBC) 2.46 M/MM3 3.95-5.67 HEMOGLOBIN (test code=HGB) 8.2 G/DL 12.4-16.7 HEMATOCRIT (test code=HCT) 24.4 % 35.9-49.5 MEAN CELL VOLUME (test 99 fL 81.7-96.1 code=MCV) MEAN CELL HGB (test code=MCH) 33.3 pg 27.6-33.2 MEAN CELL HGB CONCETRATION 33.6 % 32.9-35.5 (test code=MCHC) RED CELL DISTRIBUTION WIDTH 21.2 % 12.1-15.2 (test code=RDW) PLATELET COUNT (test code=PLT) 46 K/MM3 129-368 CALLED TO [facility] & READBACK ON 03/13/19 AT 0439 BY Albaro Chacon NEUTROPHIL # (test code=NT#) 1.80 K/mm3 2.0-7.6 IMMATURE GRANULOCYTE # (test 0.09 x10 3/uL 0-0.03 code=IG#) LYMPHOCYTE # (test code=LY#) 0.30 K/mm3 1.0-3.8 MONOCYTE # (test code=MO#) 0.22 K/mm3 0.1-0.8 EOSINOPHIL # (test code=EO#) 0.01 K/mm3 0.0-0.2 BASOPHIL # (test code=BA#) 0 K/mm3 0.0-0.2 NUCLEATED RBC # (test 0.08 K/mm3 0.0-0.1 code=NRBC#) DIFFERENTIAL [id number] 12:33:00 Test Item Value Reference Range Comments RBC MORPHOLOGY REQUIRED (test code=RBCM) ABNORMAL POIKILOCYTOSIS (test code=POIK) FEW NONE ANISOCYTOSIS (test code=ANISO) MODERATE NONE MACROCYTOSIS (test code=MACR) FEW NONE TARGET CELLS (test code=TGT) FEW NONE PLATELET ESTIMATE (test code=PLTEST) DECREASED ADEQUATE PLATELET MORPHOLOGY (test code=PLTMORPH) NORMAL NORMAL WBC [id number] 12:33:00 Test Item Value Reference Range Comments TOTAL CELLS COUNTED (test code=TCC) 130 #CELLS SEGMENTED NEUTROPHILS (test code=SEG) 88.8 % 36.2-73.8 BAND NEUTROPHIL (test code=BAND) 0.9 % 0-10 LYMPHOCYTE (test code=LYMPH) 4.7 % 12.9-45.1 ATYPICAL LYMPH (test code=ALYMPH) 0.0 % 0-0 MONOCYTE (test code=MON) 2.8 % 0-11 MYELOCYTE (test code=MYELO) 1.9 % 0-0 PROMYELOCYTE (test code=PROM) 0.9 % 0-0 NUCLEATED RED BLOOD CELL (test code=NRBC) 15 0-0 GLUCOSE BEDSIDE [id number] 12:13:00 Test Item Value Reference Range Comments GLUCOSE BEDSIDE TESTING (test code=GLUBED) 145 MG/DL 60-99 GLUCOSE BEDSIDE [id number] 08:10:00 Test Item Value Reference Range Comments GLUCOSE BEDSIDE TESTING (test code=GLUBED) 93 MG/DL 60-99 GLUCOSE BEDSIDE [id number] 07:03:00 Test Item Value Reference Range Comments GLUCOSE BEDSIDE TESTING (test code=GLUBED) 106 MG/DL 60-99 [id number] 05:01:00 Test Item Value Reference Range Comments VANCOMYCIN (test code=VANCO) 15.6 mcg/ML 5.0-26.0 B-TYPE NATRIURETIC [id number] 04:52:00 Test Item Value Reference Range Comments B-TYPE NATRIURETIC PEPTIDE (test code=BNP) 1881.0 PG/ML 0-100 BASIC METABOLIC [id number] 04:51:00 Test Item Value Reference Range Comments SODIUM (test code=NA) 128 MMOL/L 137-145 POTASSIUM (test code=K) 3.2 MMOL/L 3.5-5.1 CHLORIDE (test code=CL) 96 MMOL/L 98-107 CARBON DIOXIDE (test code=CO2) 26 MMOL/L 22-30 GLUCOSE (test code=GLU) 106 MG/DL 74-106 BLOOD UREA NITROGEN (test 45 MG/DL 9-20 code=BUN) GLOMERULAR FILTRATION RATE 21 Reporting units: ml/min/1.73 (test code=GFR) m2 (Modified MDRD Formula)Reference Range: > or=60 ml/min/1.73 m2 CREATININE (test code=CREAT) 3.00 MG/DL 0.66-1.25 CALCIUM (test code=CA) 7.3 MG/DL 8.4-10.2 [id number] 04:51:00 Test Item Value Reference Range Comments PHOSPHOROUS (test code=PHOS) 3.7 MG/DL 2.5-4.5 [id number] 04:51:00 Test Item Value Reference Range Comments MAGNESIUM (test code=MAG) 1.5 MG/DL 1.6-2.3 BASIC METABOLIC [id number] 04:50:00 Test Item Value Reference Range Comments SODIUM (test code=NA) 128 MMOL/L 137-145 POTASSIUM (test code=K) 3.2 MMOL/L 3.5-5.1 CHLORIDE (test code=CL) 96 MMOL/L 98-107 CARBON DIOXIDE (test code=CO2) 26 MMOL/L 22-30 GLUCOSE (test code=GLU) 106 MG/DL 74-106 BLOOD UREA NITROGEN (test 45 MG/DL 9-20 code=BUN) GLOMERULAR FILTRATION RATE 21 Reporting units: ml/min/1.73 (test code=GFR) m2 (Modified MDRD Formula)Reference Range: > or=60 ml/min/1.73 m2 CREATININE (test code=CREAT) 3.00 MG/DL 0.66-1.25 CALCIUM (test code=CA) MG/DL 8.7-9.7 [id number] 04:50:00 Test Item Value Reference Range Comments PHOSPHOROUS (test code=PHOS) MG/DL 2.5-4.5 [id number] 04:50:00 Test Item Value Reference Range Comments MAGNESIUM (test code=MAG) MG/DL 1.6-2.3 BASIC METABOLIC [id number] 04:47:00 Test Item Value Reference Range Comments SODIUM (test code=NA) 128 MMOL/L 137-145 POTASSIUM (test code=K) 3.2 MMOL/L 3.5-5.1 CHLORIDE (test code=CL) 96 MMOL/L 98-107 CARBON DIOXIDE (test code=CO2) MMOL/L 22-30 GLUCOSE (test code=GLU) MG/DL 74-106 BLOOD UREA NITROGEN (test code=BUN) MG/DL 9-20 GLOMERULAR FILTRATION RATE (test code=GFR) CREATININE (test code=CREAT) MG/DL 0.66-1.25 CALCIUM (test code=CA) MG/DL 8.7-9.7 [id number] 04:47:00 Test Item Value Reference Range Comments PHOSPHOROUS (test code=PHOS) MG/DL 2.5-4.5 [id number] 04:47:00 Test Item Value Reference Range Comments MAGNESIUM (test code=MAG) MG/DL 1.6-2.3 CBC W/O [id number] 04:41:00 Test Item Value Reference Range Comments WHITE BLOOD CELL (test 2.4 K/MM3 3.8-9.8 CALLED TO Aparna Robins & code=WBC) READBACK ON 03/13/19 AT 0439 BY Albaro Chacon RED BLOOD CELL (test code=RBC) 2.46 M/MM3 3.95-5.67 HEMOGLOBIN (test code=HGB) 8.2 G/DL 12.4-16.7 HEMATOCRIT (test code=HCT) 24.4 % 35.9-49.5 MEAN CELL VOLUME (test 99 fL 81.7-96.1 code=MCV) MEAN CELL HGB (test code=MCH) 33.3 pg 27.6-33.2 MEAN CELL HGB CONCETRATION 33.6 % 32.9-35.5 (test code=MCHC) RED CELL DISTRIBUTION WIDTH 21.2 % 12.1-15.2 (test code=RDW) PLATELET COUNT (test code=PLT) 46 K/MM3 129-368 CALLED TO Aparna & READBACK ON 03/13/19 AT 0439 BY Albaro Chacon NEUTROPHIL # (test code=NT#) 1.80 K/mm3 2.0-7.6 IMMATURE GRANULOCYTE # (test 0.09 x10 3/uL 0-0.03 code=IG#) LYMPHOCYTE # (test code=LY#) 0.30 K/mm3 1.0-3.8 MONOCYTE # (test code=MO#) 0.22 K/mm3 0.1-0.8 EOSINOPHIL # (test code=EO#) 0.01 K/mm3 0.0-0.2 BASOPHIL # (test code=BA#) 0 K/mm3 0.0-0.2 NUCLEATED RBC # (test 0.08 K/mm3 0.0-0.1 code=NRBC#) DIFFERENTIAL [id number] 04:41:00 Test Item Value Reference Range Comments RBC MORPHOLOGY REQUIRED (test code=RBCM) PLATELET ESTIMATE (test code=PLTEST) ADEQUATE PLATELET MORPHOLOGY (test code=PLTMORPH) NORMAL WBC [id number] 04:41:00 Test Item Value Reference Range Comments TOTAL CELLS COUNTED (test code=TCC) #CELLS SEGMENTED NEUTROPHILS (test code=SEG) % 36.2-73.8 LYMPHOCYTE (test code=LYMPH) % 12.9-45.1 MONOCYTE (test code=MON) % 0-11 CBC W/AUTO [id number] 04:41:00 Test Item Value Reference Range Comments WHITE BLOOD CELL (test 2.4 K/MM3 3.8-9.8 CALLED TO [facility] & code=WBC) READBACK ON 03/13/19 AT 0439 BY Albaro Chacon RED BLOOD CELL (test code=RBC) 2.46 M/MM3 3.95-5.67 HEMOGLOBIN (test code=HGB) 8.2 G/DL 12.4-16.7 HEMATOCRIT (test code=HCT) 24.4 % 35.9-49.5 MEAN CELL VOLUME (test 99 fL 81.7-96.1 code=MCV) MEAN CELL HGB (test code=MCH) 33.3 pg 27.6-33.2 MEAN CELL HGB CONCETRATION 33.6 % 32.9-35.5 (test code=MCHC) RED CELL DISTRIBUTION WIDTH 21.2 % 12.1-15.2 (test code=RDW) PLATELET COUNT (test code=PLT) 46 K/MM3 129-368 CALLED TO [facility] & READBACK ON 03/13/19 AT 0439 BY Albaro Chacon MEAN PLATELET VOLUME (test 13.7 fl 7.4-10.4 code=MPV) NEUTROPHIL % (test code=NT%) 74.4 % 43-75 IMMATURE GRANULOCYTE % (test 3.7 % 0.0-2.0 code=IG%) LYMPHOCYTE % (test code=LY%) 12.4 % 14-44 MONOCYTE % (test code=MO%) 9.1 % 4-13 EOSINOPHIL % (test code=EO%) 0.4 % 0-6 BASOPHIL % (test code=BA%) 0 % 0-2 NUCLEATED RBC % (test 3.3 % 0-1.0 code=NRBC%) NEUTROPHIL # (test code=NT#) 1.80 K/mm3 2.0-7.6 IMMATURE GRANULOCYTE # (test 0.09 x10 3/uL 0-0.03 code=IG#) LYMPHOCYTE # (test code=LY#) 0.30 K/mm3 1.0-3.8 MONOCYTE # (test code=MO#) 0.22 K/mm3 0.1-0.8 EOSINOPHIL # (test code=EO#) 0.01 K/mm3 0.0-0.2 BASOPHIL # (test code=BA#) 0 K/mm3 0.0-0.2 NUCLEATED RBC # (test 0.08 K/mm3 0.0-0.1 code=NRBC#) WBC [id number] 04:41:00 Test Item Value Reference Range Comments RBC MORPHOLOGY REQUIRED (test code=RBCM) TOTAL CELLS COUNTED (test code=TCC) #CELLS SEGMENTED NEUTROPHILS (test code=SEG) % 36.2-73.8 LYMPHOCYTE (test code=LYMPH) % 12.9-45.1 MONOCYTE (test code=MON) % 0-11 PLATELET ESTIMATE (test code=PLTEST) ADEQUATE PLATELET MORPHOLOGY (test code=PLTMORPH) NORMAL GLUCOSE BEDSIDE [id number] 21:15:00 Test Item Value Reference Range Comments GLUCOSE BEDSIDE TESTING (test code=GLUBED) 171 MG/DL 60-99 GLUCOSE BEDSIDE [id number] 17:44:00 Test Item Value Reference Range Comments GLUCOSE BEDSIDE TESTING (test code=GLUBED) 195 MG/DL 60-99 GLUCOSE BEDSIDE [id number] 12:15:00 Test Item Value Reference Range Comments GLUCOSE BEDSIDE TESTING (test code=GLUBED) 182 MG/DL 60-99 B-TYPE NATRIURETIC [id number] 10:11:00 Test Item Value Reference Range Comments B-TYPE NATRIURETIC PEPTIDE (test code=BNP) 1295.0 PG/ML 0-100 UNABLE TO DRAW BLOOD, REASON: PT IS RECEIVING BLOODNOTIFIED PATIENT CARE STAFF: KEANU 03/12/19 AT 0428 BY Kym AlbertoCBC W/AUTO [id number] 09:37:00 Test Item Value Reference Range Comments WHITE BLOOD CELL (test 2.9 K/MM3 3.8-9.8 code=WBC) RED BLOOD CELL (test code=RBC) 2.55 M/MM3 3.95-5.67 HEMOGLOBIN (test code=HGB) 8.6 G/DL 12.4-16.7 HEMATOCRIT (test code=HCT) 25.4 % 35.9-49.5 MEAN CELL VOLUME (test 100 fL 81.7-96.1 code=MCV) MEAN CELL HGB (test code=MCH) 33.7 pg 27.6-33.2 MEAN CELL HGB CONCETRATION 33.9 % 32.9-35.5 (test code=MCHC) RED CELL DISTRIBUTION WIDTH 21.5 % 12.1-15.2 (test code=RDW) PLATELET COUNT (test code=PLT) 29 K/MM3 129-368 CALLED TO ALPHONSE Tran & READBACK ON 03/12/19 AT 0908 BY Александр Oconnell NEUTROPHIL % (test code=NT%) 80.6 % 43-75 IMMATURE GRANULOCYTE % (test 2.1 % 0.0-2.0 code=IG%) LYMPHOCYTE % (test code=LY%) 9.7 % 14-44 MONOCYTE % (test code=MO%) 7.3 % 4-13 EOSINOPHIL % (test code=EO%) 0.3 % 0-6 BASOPHIL % (test code=BA%) 0 % 0-2 NUCLEATED RBC % (test 2.8 % 0-1.0 code=NRBC%) NEUTROPHIL # (test code=NT#) 2.32 K/mm3 2.0-7.6 IMMATURE GRANULOCYTE # (test 0.06 x10 3/uL 0-0.03 code=IG#) LYMPHOCYTE # (test code=LY#) 0.28 K/mm3 1.0-3.8 MONOCYTE # (test code=MO#) 0.21 K/mm3 0.1-0.8 EOSINOPHIL # (test code=EO#) 0.01 K/mm3 0.0-0.2 BASOPHIL # (test code=BA#) 0 K/mm3 0.0-0.2 NUCLEATED RBC # (test 0.08 K/mm3 0.0-0.1 code=NRBC#) NUCLEATED RED BLOOD CELL (test 7 0-0 code=NRBC) UNABLE TO DRAW BLOOD, REASON: PT IS RECEIVING BLOOD NOTIFIED PATIENT CARE STAFF : KEANU 03/12/19 AT 0429 BY Kym AlbertoDIFFERENTIAL [id number] 09:37: 00 Test Item Value Reference Range Comments RBC MORPHOLOGY REQUIRED (test code=RBCM) ABNORMAL POIKILOCYTOSIS (test code=POIK) FEW NONE ANISOCYTOSIS (test code=ANISO) MANY NONE MACROCYTOSIS (test code=MACR) FEW NONE PLATELET ESTIMATE (test code=PLTEST) DECREASED ADEQUATE PLATELET MORPHOLOGY (test code=PLTMORPH) NORMAL NORMAL UNABLE TO DRAW BLOOD, REASON: PT IS RECEIVING BLOOD NOTIFIED PATIENT CARE STAFF : [facility] 03/12/19 AT 0429 BY Kym AlbertoCOMPREHENSIVE METABOLIC [id number] 09:37:00 Test Item Value Reference Range Comments SODIUM (test code=NA) 127 MMOL/L 137-145 POTASSIUM (test code=K) 3.5 MMOL/L 3.5-5.1 CHLORIDE (test code=CL) 93 MMOL/L 98-107 CARBON DIOXIDE (test code=CO2) 26 MMOL/L 22-30 ANION GAP (test code=GAP) 12 MMOL/L 14-24 GLUCOSE (test code=GLU) 114 MG/DL 74-106 BLOOD UREA NITROGEN (test 49 MG/DL 9-20 code=BUN) GLOMERULAR FILTRATION RATE 20 Reporting units: (test code=GFR) ml/min/1.73 m2 (Modified MDRD Formula)Reference Range: > or=60 ml/min/1.73 m2 CREATININE (test code=CREAT) 3.10 MG/DL 0.66-1.25 TOTAL PROTEIN (test code=PROT) 4.2 G/DL 6.2-7.6 ALBUMIN (test code=ALB) 2.1 G/DL 3.5-5.0 CALCIUM (test code=CA) 7.5 MG/DL 8.4-10.2 BILIRUBIN TOTAL (test 1.1 MG/DL 0.2-1.3 code=BILT) SGOT/AST (test code=AST) 43 UNITS/L 17-59 SGPT/ALT (test code=ALT) 23 UNITS/L <50 ALKALINE PHOSPHATASE (test 195 UNITS/L 38-126 code=ALKP) UNABLE TO DRAW BLOOD, REASON: PT IS RECEIVING BLOODNOTIFIED PATIENT CARE STAFF: [facility] 03/12/19 AT 0427 BY Kym [id number] 09:37:00 Test Item Value Reference Range Comments PHOSPHOROUS (test code=PHOS) 3.6 MG/DL 2.5-4.5 UNABLE TO DRAW BLOOD, REASON: PT IS RECEIVING BLOODNOTIFIED PATIENT CARE STAFF: [facility] 03/12/19 AT 0427 BY Kym [id number] 09:37:00 Test Item Value Reference Range Comments MAGNESIUM (test code=MAG) 1.5 MG/DL 1.6-2.3 UNABLE TO DRAW BLOOD, REASON: PT IS RECEIVING BLOODNOTIFIED [facility] 03/12/19 AT 0427 BY Kym AlbertoPROTHROMBIN [id number] 09:28:00 Test Item Value Reference Range Comments PROTHROMBIN TIME PATIENT (test 26.3 SECONDS 9.6-11.6 code=PTP) INTERNATIONAL NORMAL RATIO 2.6 0.8-1.1 The INR is to be used only (test code=INR) for monitoring oral anticoagulanttherapy. INDICATION INR VALUE 1. Prophylaxis, deep venous thrombosis, including high risk surgery. 2.0 - 3.0 2. Prophylaxis, deep venous thrombosis, hip surgery, treatment for deep venous thrombosis or pulmonary prevention of systemic embolism in patients with valvular heart disease, atrial fibrillation, tissue heart valve, or acute myocardial infarction. 2.0 - 3.0 3. Mechanical prosthesis heart valves, recurrent systemic embolism. 3.0 - 4.5 UNABLE TO DRAW BLOOD, REASON: PT IS RECEIVING BLOOD NOTIFIED [facility]19 AT 0428 BY Kym AlbertoPTT [id number] 09:28:00 Test Item Value Reference Range Comments PTT ACTIVATED (test 76.6 SECONDS 22.0-33.0 CALLED TO ALPHONSE Tran& code=APTT) READBACK ON 03/12/19 AT 0927 BY Walter Oconnell NOT ON HEPARIN PER ALPHONSE MARIE UNABLE TO DRAW BLOOD, REASON: PT IS RECEIVING BLOOD NOTIFIED PATIENT CARE STAFF : [facility] 03/12/19 AT 0428 BY Kym AlbertoCOMPREHENSIVE METABOLIC [id number] 09:23:00 Test Item Value Reference Range Comments SODIUM (test code=NA) 127 MMOL/L 137-145 POTASSIUM (test code=K) 3.5 MMOL/L 3.5-5.1 CHLORIDE (test code=CL) 93 MMOL/L 98-107 CARBON DIOXIDE (test code=CO2) MMOL/L 22-30 GLUCOSE (test code=GLU) MG/DL 74-106 BLOOD UREA NITROGEN (test code=BUN) MG/DL 9-20 GLOMERULAR FILTRATION RATE (test code=GFR) CREATININE (test code=CREAT) MG/DL 0.66-1.25 TOTAL PROTEIN (test code=PROT) G/DL 6.2-7.6 ALBUMIN (test code=ALB) 2.1 G/DL 3.5-5.0 CALCIUM (test code=CA) MG/DL 8.7-9.7 BILIRUBIN TOTAL (test code=BILT) MG/DL 0.2-1.3 SGOT/AST (test code=AST) UNITS/L 15-37 SGPT/ALT (test code=ALT) UNITS/L <50 ALKALINE PHOSPHATASE (test code=ALKP) UNITS/L 38-126 UNABLE TO DRAW BLOOD, REASON: PT IS RECEIVING BLOODNOTIFIED PATIENT CARE STAFF: [facility] 03/12/19 AT [facility] BY Kym [id number] 09:23:00 Test Item Value Reference Range Comments PHOSPHOROUS (test code=PHOS) MG/DL 2.5-4.5 UNABLE TO DRAW BLOOD, REASON: PT IS RECEIVING BLOODNOTIFIED PATIENT CARE STAFF: [facility] 03/12/19 AT [facility] BY Kym [id number] 09:23:00 Test Item Value Reference Range Comments MAGNESIUM (test code=MAG) MG/DL 1.6-2.3 UNABLE TO DRAW BLOOD, REASON: PT IS RECEIVING BLOODNOTIFIED PATIENT CARE STAFF: [facility] 03/12/19 AT [facility] BY Kym AlbertoCOMPREHENSIVE METABOLIC [id number] 09:22:00 Test Item Value Reference Range Comments SODIUM (test code=NA) MMOL/L 137-145 POTASSIUM (test code=K) MMOL/L 3.5-5.1 CHLORIDE (test code=CL) 93 MMOL/L 98-107 CARBON DIOXIDE (test code=CO2) MMOL/L 22-30 GLUCOSE (test code=GLU) MG/DL 74-106 BLOOD UREA NITROGEN (test code=BUN) MG/DL 9-20 GLOMERULAR FILTRATION RATE (test code=GFR) CREATININE (test code=CREAT) MG/DL 0.66-1.25 TOTAL PROTEIN (test code=PROT) G/DL 6.2-7.6 ALBUMIN (test code=ALB) 2.1 G/DL 3.5-5.0 CALCIUM (test code=CA) MG/DL 8.7-9.7 BILIRUBIN TOTAL (test code=BILT) MG/DL 0.2-1.3 SGOT/AST (test code=AST) UNITS/L 15-37 SGPT/ALT (test code=ALT) UNITS/L <50 ALKALINE PHOSPHATASE (test code=ALKP) UNITS/L 38-126 UNABLE TO DRAW BLOOD, REASON: PT IS RECEIVING BLOODNOTIFIED PATIENT CARE STAFF: [facility] 03/12/19 AT [facility] BY Kym [id number] 09:22:00 Test Item Value Reference Range Comments PHOSPHOROUS (test code=PHOS) MG/DL 2.5-4.5 UNABLE TO DRAW BLOOD, REASON: PT IS RECEIVING BLOODNOTIFIED PATIENT CARE STAFF: [facility] 03/12/19 AT [facility] BY Kym [id number] 09:22:00 Test Item Value Reference Range Comments MAGNESIUM (test code=MAG) MG/DL 1.6-2.3 UNABLE TO DRAW BLOOD, REASON: PT IS RECEIVING BLOODNOTIFIED PATIENT CARE STAFF: [facility] 03/12/19 AT [facility] BY Kym AlbertoCBC W/AUTO [id number] 09:11:00 Test Item Value Reference Range Comments WHITE BLOOD CELL (test 2.9 K/MM3 3.8-9.8 code=WBC) RED BLOOD CELL (test code=RBC) 2.55 M/MM3 3.95-5.67 HEMOGLOBIN (test code=HGB) 8.6 G/DL 12.4-16.7 HEMATOCRIT (test code=HCT) 25.4 % 35.9-49.5 MEAN CELL VOLUME (test 100 fL 81.7-96.1 code=MCV) MEAN CELL HGB (test code=MCH) 33.7 pg 27.6-33.2 MEAN CELL HGB CONCETRATION 33.9 % 32.9-35.5 (test code=MCHC) RED CELL DISTRIBUTION WIDTH 21.5 % 12.1-15.2 (test code=RDW) PLATELET COUNT (test code=PLT) 29 K/MM3 129-368 CALLED TO ALPHONSE Tran & READBACK ON 03/12/19 AT 0908 BY Александр Oconnell NEUTROPHIL % (test code=NT%) 80.6 % 43-75 IMMATURE GRANULOCYTE % (test 2.1 % 0.0-2.0 code=IG%) LYMPHOCYTE % (test code=LY%) 9.7 % 14-44 MONOCYTE % (test code=MO%) 7.3 % 4-13 EOSINOPHIL % (test code=EO%) 0.3 % 0-6 BASOPHIL % (test code=BA%) 0 % 0-2 NUCLEATED RBC % (test 2.8 % 0-1.0 code=NRBC%) NEUTROPHIL # (test code=NT#) 2.32 K/mm3 2.0-7.6 IMMATURE GRANULOCYTE # (test 0.06 x10 3/uL 0-0.03 code=IG#) LYMPHOCYTE # (test code=LY#) 0.28 K/mm3 1.0-3.8 MONOCYTE # (test code=MO#) 0.21 K/mm3 0.1-0.8 EOSINOPHIL # (test code=EO#) 0.01 K/mm3 0.0-0.2 BASOPHIL # (test code=BA#) 0 K/mm3 0.0-0.2 NUCLEATED RBC # (test 0.08 K/mm3 0.0-0.1 code=NRBC#) UNABLE TO DRAW BLOOD, REASON: PT IS RECEIVING BLOOD NOTIFIED PATIENT CARE STAFF : [facility] 03/12/19 AT 0429 BY Kym AlbertoDIFFERENTIAL [id number] 09:11: 00 Test Item Value Reference Range Comments RBC MORPHOLOGY REQUIRED (test code=RBCM) PLATELET ESTIMATE (test code=PLTEST) ADEQUATE PLATELET MORPHOLOGY (test code=PLTMORPH) NORMAL UNABLE TO DRAW BLOOD, REASON: PT IS RECEIVING BLOOD NOTIFIED PATIENT CARE STAFF : [facility] 03/12/19 AT 0429 BY Kym AlbertoCBC W/AUTO [id number] 09:11:00 Test Item Value Reference Range Comments WHITE BLOOD CELL (test 2.9 K/MM3 3.8-9.8 code=WBC) RED BLOOD CELL (test code=RBC) 2.55 M/MM3 3.95-5.67 HEMOGLOBIN (test code=HGB) 8.6 G/DL 12.4-16.7 HEMATOCRIT (test code=HCT) 25.4 % 35.9-49.5 MEAN CELL VOLUME (test 100 fL 81.7-96.1 code=MCV) MEAN CELL HGB (test code=MCH) 33.7 pg 27.6-33.2 MEAN CELL HGB CONCETRATION 33.9 % 32.9-35.5 (test code=MCHC) RED CELL DISTRIBUTION WIDTH 21.5 % 12.1-15.2 (test code=RDW) PLATELET COUNT (test code=PLT) 29 K/MM3 129-368 CALLED TO ALPHONSE Tran & READBACK ON 03/12/19 AT 0908 BY Александр Oconnell NEUTROPHIL % (test code=NT%) 80.6 % 43-75 IMMATURE GRANULOCYTE % (test 2.1 % 0.0-2.0 code=IG%) LYMPHOCYTE % (test code=LY%) 9.7 % 14-44 MONOCYTE % (test code=MO%) 7.3 % 4-13 EOSINOPHIL % (test code=EO%) 0.3 % 0-6 BASOPHIL % (test code=BA%) 0 % 0-2 NUCLEATED RBC % (test 2.8 % 0-1.0 code=NRBC%) NEUTROPHIL # (test code=NT#) 2.32 K/mm3 2.0-7.6 IMMATURE GRANULOCYTE # (test 0.06 x10 3/uL 0-0.03 code=IG#) LYMPHOCYTE # (test code=LY#) 0.28 K/mm3 1.0-3.8 MONOCYTE # (test code=MO#) 0.21 K/mm3 0.1-0.8 EOSINOPHIL # (test code=EO#) 0.01 K/mm3 0.0-0.2 BASOPHIL # (test code=BA#) 0 K/mm3 0.0-0.2 NUCLEATED RBC # (test 0.08 K/mm3 0.0-0.1 code=NRBC#) UNABLE TO DRAW BLOOD, REASON: PT IS RECEIVING BLOOD NOTIFIED PATIENT CARE STAFF : KEANU 03/12/19 AT 0429 BY Kym AlbertoDIFFERENTIAL [id number] 09:11: 00 Test Item Value Reference Range Comments RBC MORPHOLOGY REQUIRED (test code=RBCM) PLATELET ESTIMATE (test code=PLTEST) ADEQUATE PLATELET MORPHOLOGY (test code=PLTMORPH) NORMAL UNABLE TO DRAW BLOOD, REASON: PT IS RECEIVING BLOOD NOTIFIED PATIENT CARE STAFF : [facility] 03/12/19 AT 0429 BY Kym AlbertoHGB [id number] 09:03:00 Test Item Value Reference Range Comments HEMOGLOBIN (test code=HGB) 8.6 G/DL 12.4-16.7 HEMATOCRIT (test code=HCT) 24.9 % 35.9-49.5 UNABLE TO DRAW BLOOD, REASON: PT IS RECEIVING BLOOD NOTIFIED PATIENT CARE STAFF : [facility] 03/12/19 AT 0429 BY Kym AlbertoGLUCOSE BEDSIDE [id number] 07:48:00 Test Item Value Reference Range Comments GLUCOSE BEDSIDE TESTING (test code=GLUBED) 128 MG/DL 60-99 GLUCOSE BEDSIDE [id number] 04:36:00 Test Item Value Reference Range Comments GLUCOSE BEDSIDE TESTING (test code=GLUBED) 249 MG/DL 60-99 HGB [id number] 00:02:00 Test Item Value Reference Range Comments HEMOGLOBIN (test code=HGB) 7.3 G/DL 12.4-16.7 HEMATOCRIT (test code=HCT) 22.0 % 35.9-49.5 UR CREATININE [id number] 21:21:00 Test Item Value Reference Range Comments UR CREATININE RANDOM (test code=CREATU) 49.3 URINALYSIS [id number] 21:20:00 Test Item Value Reference Range Comments UA COLOR (test code=COLU) YELLOW YELLOW UA APPEARANCE (test code=APPU) CLEAR CLEAR UA GLUCOSE DIPSTICK (test code=DGLUU) 50 MG/DL NORMAL UA BILIRUBIN DIPSTICK (test code=BILU) NEGATIVE MG/DL NEGATIVE UA KETONE DIPSTICK (test code=KETU) NEGATIVE MG/DL NEGATIVE UA SPECIFIC GRAVITY (test code=SGU) 1.010 1.003-1.030 UA BLOOD DIPSTICK (test code=BRIDGETT) 150 Sylvester/mm3 NEGATIVE UA PH DIPSTICK (test code=KAROLYN) 7.0 5.0-9.0 UA PROTEIN DIPSTICK (test code=PROU) 100 MG/DL NEGATIVE UA UROBILINIOGEN DIPSTICK (test NORMAL MG/DL NORMAL code=URO) UA NITRITE DIPSTICK (test code=MICHAEL) NEGATIVE NEGATIVE UA LEUKOCYTE ESTERASE DIPSTICK (test NEGATIVE /mm3 NEGATIVE code=LEUU) UA CULTURE NEEDED? (test code=UACULT) NO, WBC<10 Criteria Culture Chk SOURCE OF URINE: CLEAN CATCHUA [id number] 21:20:00 Test Item Value Reference Range Comments UA RBC (test code=RBCU) 10-20 RBC/HPF 0-3 UA WBC (test code=XWBCU) 0-3 WBC/HPF 0-5 UA EPITHELIAL CELLS (test code=EPIU) FEW EPI/HPF FEW UA BACTERIA (test code=XBACU) FEW NONE SOURCE OF URINE: CLEAN CATCHUR PROTEIN [id number] 21:20:00 Test Item Value Reference Range Comments UR PROTEIN RANDOM (test code=PROTU) 89 MG/DL 0-11.9 SOURCE OF URINE: CLEAN CATCHURINALYSIS [id number] 21:12:00 Test Item Value Reference Range Comments UA COLOR (test code=COLU) YELLOW YELLOW UA APPEARANCE (test code=APPU) CLEAR CLEAR UA GLUCOSE DIPSTICK (test code=DGLUU) 50 MG/DL NORMAL UA BILIRUBIN DIPSTICK (test code=BILU) NEGATIVE MG/DL NEGATIVE UA KETONE DIPSTICK (test code=KETU) NEGATIVE MG/DL NEGATIVE UA SPECIFIC GRAVITY (test code=SGU) 1.010 1.003-1.030 UA BLOOD DIPSTICK (test code=BRIDGETT) 150 Sylvester/mm3 NEGATIVE UA PH DIPSTICK (test code=KAROLYN) 7.0 5.0-9.0 UA PROTEIN DIPSTICK (test code=PROU) 100 MG/DL NEGATIVE UA UROBILINIOGEN DIPSTICK (test NORMAL MG/DL NORMAL code=URO) UA NITRITE DIPSTICK (test code=MICHAEL) NEGATIVE NEGATIVE UA LEUKOCYTE ESTERASE DIPSTICK (test NEGATIVE /mm3 NEGATIVE code=LEUU) UA CULTURE NEEDED? (test code=UACULT) NO, WBC<10 Criteria Culture Chk SOURCE OF URINE: CLEAN CATCHUA [id number] 21:12:00 Test Item Value Reference Range Comments UA RBC (test code=RBCU) 10-20 RBC/HPF 0-3 UA WBC (test code=XWBCU) 0-3 WBC/HPF 0-5 UA EPITHELIAL CELLS (test code=EPIU) FEW EPI/HPF FEW UA BACTERIA (test code=XBACU) FEW NONE SOURCE OF URINE: CLEAN CATCHUR PROTEIN [id number] 21:12:00 Test Item Value Reference Range Comments UR PROTEIN RANDOM (test code=PROTU) MG/DL 0-11.9 SOURCE OF URINE: CLEAN CATCHURINALYSIS [id number] 21:02:00 Test Item Value Reference Range Comments UA COLOR (test code=COLU) YELLOW YELLOW UA APPEARANCE (test code=APPU) CLEAR CLEAR UA GLUCOSE DIPSTICK (test code=DGLUU) 50 MG/DL NORMAL UA BILIRUBIN DIPSTICK (test code=BILU) NEGATIVE MG/DL NEGATIVE UA KETONE DIPSTICK (test code=KETU) NEGATIVE MG/DL NEGATIVE UA SPECIFIC GRAVITY (test code=SGU) 1.010 1.003-1.030 UA BLOOD DIPSTICK (test code=BRIDGETT) 150 Sylvester/mm3 NEGATIVE UA PH DIPSTICK (test code=KAROLYN) 7.0 5.0-9.0 UA PROTEIN DIPSTICK (test code=PROU) 100 MG/DL NEGATIVE UA UROBILINIOGEN DIPSTICK (test code=URO) NORMAL MG/DL NORMAL UA NITRITE DIPSTICK (test code=MICHAEL) NEGATIVE NEGATIVE UA LEUKOCYTE ESTERASE DIPSTICK (test NEGATIVE /mm3 NEGATIVE code=LEUU) UA CULTURE NEEDED? (test code=UACULT) Criteria Culture Chk SOURCE OF URINE: CLEAN CATCHUA [id number] 21:02:00 Test Item Value Reference Range Comments UA RBC (test code=RBCU) RBC/HPF 0-3 UA WBC (test code=XWBCU) WBC/HPF 0-5 UA EPITHELIAL CELLS (test code=EPIU) EPI/HPF FEW UA BACTERIA (test code=XBACU) NONE SOURCE OF URINE: CLEAN CATCHUR PROTEIN [id number] 21:02:00 Test Item Value Reference Range Comments UR PROTEIN RANDOM (test code=PROTU) MG/DL 0-11.9 SOURCE OF URINE: CLEAN CATCHURINALYSIS [id number] 21:02:00 Test Item Value Reference Range Comments UA COLOR (test code=COLU) YELLOW YELLOW UA APPEARANCE (test code=APPU) CLEAR CLEAR UA GLUCOSE DIPSTICK (test code=DGLUU) 50 MG/DL NORMAL UA BILIRUBIN DIPSTICK (test code=BILU) NEGATIVE MG/DL NEGATIVE UA KETONE DIPSTICK (test code=KETU) NEGATIVE MG/DL NEGATIVE UA SPECIFIC GRAVITY (test code=SGU) 1.010 1.003-1.030 UA BLOOD DIPSTICK (test code=BRIDGETT) 150 Sylvester/mm3 NEGATIVE UA PH DIPSTICK (test code=KAROLYN) 7.0 5.0-9.0 UA PROTEIN DIPSTICK (test code=PROU) 100 MG/DL NEGATIVE UA UROBILINIOGEN DIPSTICK (test code=URO) NORMAL MG/DL NORMAL UA NITRITE DIPSTICK (test code=MICHAEL) NEGATIVE NEGATIVE UA LEUKOCYTE ESTERASE DIPSTICK (test NEGATIVE /mm3 NEGATIVE code=LEUU) UA CULTURE NEEDED? (test code=UACULT) Criteria Culture Chk SOURCE OF URINE: CLEAN CATCHUA [id number] 21:02:00 Test Item Value Reference Range Comments UA RBC (test code=RBCU) RBC/HPF 0-3 UA WBC (test code=XWBCU) WBC/HPF 0-5 UA EPITHELIAL CELLS (test code=EPIU) EPI/HPF FEW UA BACTERIA (test code=XBACU) NONE SOURCE OF URINE: CLEAN CATCHUR PROTEIN [id number] 21:02:00 Test Item Value Reference Range Comments UR PROTEIN RANDOM (test code=PROTU) MG/DL 0-11.9 SOURCE OF URINE: CLEAN CATCHGLUCOSE BEDSIDE [id number] 20:31:00 Test Item Value Reference Range Comments GLUCOSE BEDSIDE TESTING (test code=GLUBED) 188 MG/DL 60-99 - CT CHEST W/O [id number] 14:54:00 Patient Name: SOLO REARDON Unit No: [id number] EXAMS: CPT CODE: [id number] CT CHEST W/O CONTRAST [id number] EXAM: CT CHEST WITHOUT CONTRAST INDICATION: Congestive heart failure COMPARISON: Radiograph dated March 11, 2019 TECHNIQUE: Axial CT imaging of the chest was performed without administration of intravenous contrast. Coronal and sagittal reformatted images were submitted for review. IV contrast: None DLP: 398.85 mGy-cm FINDINGS: The heart size is normal. The myocardium appears hyperdense compared to the blood likely representing anemia. No pericardial effusion is identified. The thoracic aorta and great vessels are normal course and caliber. There are atherosclerotic calcifications of the thoracic aorta. There are emphysematous changes noted throughout both lungs. There are patchy airspace opacities noted within the bilateral upper lobes which may represent an infectious/inflammatory process. There are small bilateral pleural effusions and bibasilar atelectasis, worse on the left. No mediastinal, hilar, axillary or supraclavicular adenopathy is identified. The thyroid gland is normal in appearance. The osseous structures are unremarkable. IMPRESSION: Patchy areas of airspace opacities noted throughout both lungs likely representing an infectious/inflammatory process. Bibasilar atelectasis and bilateral pleural effusions, worse on the left. Diffuse emphysematous changes throughout both lung apices. Findings suspicious for anemia. Correlate clinically. LOCATION: B2 This CT exam was performed according to our departmental dose optimization program, which includes automated exposure control, adjustment of the mA and or kV according to patient size and/or use of iterative reconstruction technique. at 5530 Reported and signed by: Evonne Stone MD CC: Denys SALAZAR; Adam Hernandez MD Technologist: Raúl Pearce, RT(R); Sukhdeep Ross CTDI: DLP: Trnscrpt: 03/11/2019 ([id number]) [id number] NAME: SOLO REARDON [address] PHYS: [place] [address] : 1945 AGE: 73 SEX: M LOC: Z.344 A PHONE #: [phone] EXAM DATE: 03/11/2019 STATUS: ADM IN FAX #: [phone] RAD #: D/C DT PAGE 1 Signed Report Patient Name: SOLO REARDON Luis Unit No: [id number] EXAMS: CPT CODE: [id number] CT CHEST W/O CONTRAST 70801 <Continued> Orig Print D/T: S: 03/11/2019 ( 9727) [facility] NAME: SOLO REARDON [address] PHYS: [place] [address] : 1945 AGE: 73 SEX: M LOC: Z.344 A PHONE #: [phone] EXAM DATE: 03/11/2019 STATUS: ADM IN FAX #: [phone] RAD #: D/C DT PAGE 2 Signed ReportGLUCOSE BEDSIDE [id number] 12:53:00 Test Item Value Reference Range Comments GLUCOSE BEDSIDE TESTING (test code=GLUBED) 200 MG/DL 60-99 - XR CHEST 2 [id number] 09:08:00 Patient Name: SOLO REARDON Unit No: [id number] EXAMS: CPT CODE: [id number] XR CHEST 2 V 52521 EXAM: CHEST 2 VIEWS INDICATION: Reevaluate LOCATION: B2 COMPARISON: March 07, 2019 TECHNIQUE : PA and lateral views of the chest. FINDINGS: The heart size is normal. There is consolidation in the leftlung base likely representing an infectious process such as pneumonia. There are diffuse congestive changes throughout both lungs. There is a small left pleural effusion. No pneumothorax. The osseous structures are normal. IMPRESSION: Consolidation in the left lung base likely representing an infectious process such as pneumonia. Diffuse congestive changes throughout both lungs. Small left pleural effusion. * * at 0908 Reportedand signed by: Evonne Stone MD CC: Adam Hernandez MD; Aubrey Oliva Technologist: Justina Noyola (RT)(R); Graeme Gardner (RT)(R); ... Transcrpt Date/Tm/Trnsp: 2018 (0908) [id number] NAME: SOLO REARDON [address] PHYS: [place] [address] : 1944 AGE: 73 SEX: M LOC: Z.344 A PHONE #: [phone] EXAM DATE: STATUS: ADM IN FAX #: [phone] RADIOLOGY NO: PAGE 1Signed ReportGLUCOSE BEDSIDE [id number] 08:52:00 Test Item Value Reference Range Comments GLUCOSE BEDSIDE TESTING (test code=GLUBED) 143 MG/DL 60-99 B-TYPE NATRIURETIC [id number] 05:39:00 Test Item Value Reference Range Comments B-TYPE NATRIURETIC PEPTIDE (test code=BNP) 1029.0 PG/ML 0-100 PROTHROMBIN [id number] 05:36:00 Test Item Value Reference Range Comments PROTHROMBIN TIME PATIENT (test 42.3 SECONDS 9.6-11.6 CALLED TO Felicita PRINGLE& code=PTP) READBACK ON 03/11/19 AT 0536 BY Tuan Blakely [employer]NATIONAL NORMAL RATIO 4.2 0.8-1.1 CALLED TO MAIKEL Mims& (test code=INR) READBACK ON 03/11/19 AT 0536 BY Tuan BlakelyThe INR is to be used only for monitoring oral anticoagulanttherapy. INDICATION INR VALUE 1. Prophylaxis, deep venous thrombosis, including high risk surgery. 2.0 - 3.0 2. Prophylaxis, deep venous thrombosis, hip surgery, treatment for deep venous thrombosis or pulmonary prevention of systemic embolism in patients with valvular heart disease, atrial fibrillation, tissue heart valve, or acute myocardial infarction. 2.0 - 3.0 3. Mechanical prosthesis heart valves, recurrent systemic embolism. 3.0 - 4.5 PTT [id number] 05:36:00 Test Item Value Reference Range Comments PTT ACTIVATED (test 90.0 SECONDS 22.0-33.0 CALLED TO MAIKEL Mims& READBACK code=APTT) ON 03/11/19 AT 0536 BY Tuan Blakely CBC W/AUTO [id number] 05:26:00 Test Item Value Reference Range Comments WHITE BLOOD CELL (test 2.9 K/MM3 3.8-9.8 code=WBC) RED BLOOD CELL (test code=RBC) 2.01 M/MM3 3.95-5.67 HEMOGLOBIN (test code=HGB) 6.9 G/DL 12.4-16.7 CALLED TO Maikel Mims& READBACK ON 03/11/19 AT 0510 BY Tuan Blakely HEMATOCRIT (test code=HCT) 21.2 % 35.9-49.5 MEAN CELL VOLUME (test 106 fL 81.7-96.1 code=MCV) MEAN CELL HGB (test code=MCH) 34.3 pg 27.6-33.2 MEAN CELL HGB CONCETRATION 32.5 % 32.9-35.5 (test code=MCHC) RED CELL DISTRIBUTION WIDTH 20.8 % 12.1-15.2 (test code=RDW) PLATELET COUNT (test code=PLT) 29 K/MM3 129-368 CALLED TO Maikel Mims& READBACK ON 03/11/19 AT 0510 BY Tuan Blakely MEAN PLATELET VOLUME (test 13.0 fl 7.4-10.4 code=MPV) NEUTROPHIL % (test code=NT%) 84.1 % 43-75 IMMATURE GRANULOCYTE % (test 0.7 % 0.0-2.0 code=IG%) LYMPHOCYTE % (test code=LY%) 11.4 % 14-44 MONOCYTE % (test code=MO%) 3.1 % 4-13 EOSINOPHIL % (test code=EO%) 0.7 % 0-6 BASOPHIL % (test code=BA%) 0 % 0-2 NUCLEATED RBC % (test 0.0 % 0-1.0 code=NRBC%) NEUTROPHIL # (test code=NT#) 2.43 K/mm3 2.0-7.6 IMMATURE GRANULOCYTE # (test 0.02 x10 3/uL 0-0.03 code=IG#) LYMPHOCYTE # (test code=LY#) 0.33 K/mm3 1.0-3.8 MONOCYTE # (test code=MO#) 0.09 K/mm3 0.1-0.8 EOSINOPHIL # (test code=EO#) 0.02 K/mm3 0.0-0.2 BASOPHIL # (test code=BA#) 0 K/mm3 0.0-0.2 NUCLEATED RBC # (test 0.00 K/mm3 0.0-0.1 code=NRBC#) NUCLEATED RED BLOOD CELL (test 1 0-0 code=NRBC) DIFFERENTIAL [id number] 05:26:00 Test Item Value Reference Range Comments RBC MORPHOLOGY REQUIRED (test code=RBCM) ABNORMAL HYPOCHROMIA (test code=HYPO) SLIGHT NONE POIKILOCYTOSIS (test code=POIK) FEW NONE ANISOCYTOSIS (test code=ANISO) MANY NONE MACROCYTOSIS (test code=MACR) MODERATE NONE ROULEAUX (test code=ROU) FEW NONE OVALOCYTES (test code=OVAL) FEW NONE PLATELET ESTIMATE (test code=PLTEST) MARKED DECREASED ADEQUATE PLATELET MORPHOLOGY (test code=PLTMORPH) NORMAL NORMAL CBC W/AUTO [id number] 05:10:00 Test Item Value Reference Range Comments WHITE BLOOD CELL (test 2.9 K/MM3 3.8-9.8 code=WBC) RED BLOOD CELL (test code=RBC) 2.01 M/MM3 3.95-5.67 HEMOGLOBIN (test code=HGB) 6.9 G/DL 12.4-16.7 CALLED TO Xavier& READBACK ON 03/11/19 AT 0510 BY Tuan Blakely HEMATOCRIT (test code=HCT) 21.2 % 35.9-49.5 MEAN CELL VOLUME (test 106 fL 81.7-96.1 code=MCV) MEAN CELL HGB (test code=MCH) 34.3 pg 27.6-33.2 MEAN CELL HGB CONCETRATION 32.5 % 32.9-35.5 (test code=MCHC) RED CELL DISTRIBUTION WIDTH 20.8 % 12.1-15.2 (test code=RDW) PLATELET COUNT (test code=PLT) 29 K/MM3 129-368 CALLED TO Xavier& READBACK ON 03/11/19 AT 0510 BY Tuan Blakely MEAN PLATELET VOLUME (test 13.0 fl 7.4-10.4 code=MPV) NEUTROPHIL % (test code=NT%) 84.1 % 43-75 IMMATURE GRANULOCYTE % (test 0.7 % 0.0-2.0 code=IG%) LYMPHOCYTE % (test code=LY%) 11.4 % 14-44 MONOCYTE % (test code=MO%) 3.1 % 4-13 EOSINOPHIL % (test code=EO%) 0.7 % 0-6 BASOPHIL % (test code=BA%) 0 % 0-2 NUCLEATED RBC % (test 0.0 % 0-1.0 code=NRBC%) NEUTROPHIL # (test code=NT#) 2.43 K/mm3 2.0-7.6 IMMATURE GRANULOCYTE # (test 0.02 x10 3/uL 0-0.03 code=IG#) LYMPHOCYTE # (test code=LY#) 0.33 K/mm3 1.0-3.8 MONOCYTE # (test code=MO#) 0.09 K/mm3 0.1-0.8 EOSINOPHIL # (test code=EO#) 0.02 K/mm3 0.0-0.2 BASOPHIL # (test code=BA#) 0 K/mm3 0.0-0.2 NUCLEATED RBC # (test 0.00 K/mm3 0.0-0.1 code=NRBC#) DIFFERENTIAL [id number] 05:10:00 Test Item Value Reference Range Comments RBC MORPHOLOGY REQUIRED (test code=RBCM) PLATELET ESTIMATE (test code=PLTEST) ADEQUATE PLATELET MORPHOLOGY (test code=PLTMORPH) NORMAL CBC W/AUTO [id number] 05:10:00 Test Item Value Reference Range Comments WHITE BLOOD CELL (test 2.9 K/MM3 3.8-9.8 code=WBC) RED BLOOD CELL (test code=RBC) 2.01 M/MM3 3.95-5.67 HEMOGLOBIN (test code=HGB) 6.9 G/DL 12.4-16.7 CALLED TO Maikel Mims& READBACK ON 03/11/19 AT 0510 BY Tuan Blakely HEMATOCRIT (test code=HCT) 21.2 % 35.9-49.5 MEAN CELL VOLUME (test 106 fL 81.7-96.1 code=MCV) MEAN CELL HGB (test code=MCH) 34.3 pg 27.6-33.2 MEAN CELL HGB CONCETRATION 32.5 % 32.9-35.5 (test code=MCHC) RED CELL DISTRIBUTION WIDTH 20.8 % 12.1-15.2 (test code=RDW) PLATELET COUNT (test code=PLT) 29 K/MM3 129-368 CALLED TO Maikel Mims& READBACK ON 03/11/19 AT 0510 BY Tuan Blakely MEAN PLATELET VOLUME (test 13.0 fl 7.4-10.4 code=MPV) NEUTROPHIL % (test code=NT%) 84.1 % 43-75 IMMATURE GRANULOCYTE % (test 0.7 % 0.0-2.0 code=IG%) LYMPHOCYTE % (test code=LY%) 11.4 % 14-44 MONOCYTE % (test code=MO%) 3.1 % 4-13 EOSINOPHIL % (test code=EO%) 0.7 % 0-6 BASOPHIL % (test code=BA%) 0 % 0-2 NUCLEATED RBC % (test 0.0 % 0-1.0 code=NRBC%) NEUTROPHIL # (test code=NT#) 2.43 K/mm3 2.0-7.6 IMMATURE GRANULOCYTE # (test 0.02 x10 3/uL 0-0.03 code=IG#) LYMPHOCYTE # (test code=LY#) 0.33 K/mm3 1.0-3.8 MONOCYTE # (test code=MO#) 0.09 K/mm3 0.1-0.8 EOSINOPHIL # (test code=EO#) 0.02 K/mm3 0.0-0.2 BASOPHIL # (test code=BA#) 0 K/mm3 0.0-0.2 NUCLEATED RBC # (test 0.00 K/mm3 0.0-0.1 code=NRBC#) DIFFERENTIAL [id number] 05:10:00 Test Item Value Reference Range Comments RBC MORPHOLOGY REQUIRED (test code=RBCM) PLATELET ESTIMATE (test code=PLTEST) ADEQUATE PLATELET MORPHOLOGY (test code=PLTMORPH) NORMAL COMPREHENSIVE METABOLIC [id number] 05:06:00 Test Item Value Reference Range Comments SODIUM (test code=NA) 126 MMOL/L 137-145 POTASSIUM (test code=K) 5.9 MMOL/L 3.5-5.1 CHLORIDE (test code=CL) 95 MMOL/L 98-107 CARBON DIOXIDE (test code=CO2) 28 MMOL/L 22-30 ANION GAP (test code=GAP) 9 MMOL/L 14-24 GLUCOSE (test code=GLU) 145 MG/DL 74-106 BLOOD UREA NITROGEN (test 51 MG/DL 9-20 code=BUN) GLOMERULAR FILTRATION RATE 19 Reporting units: (test code=GFR) ml/min/1.73 m2 (Modified MDRD Formula)Reference Range: > or=60 ml/min/1.73 m2 CREATININE (test code=CREAT) 3.30 MG/DL 0.66-1.25 TOTAL PROTEIN (test code=PROT) 4.4 G/DL 6.2-7.6 ALBUMIN (test code=ALB) 2.3 G/DL 3.5-5.0 CALCIUM (test code=CA) 7.8 MG/DL 8.4-10.2 BILIRUBIN TOTAL (test 1.1 MG/DL 0.2-1.3 code=BILT) SGOT/AST (test code=AST) 52 UNITS/L 17-59 SGPT/ALT (test code=ALT) 24 UNITS/L <50 ALKALINE PHOSPHATASE (test 221 UNITS/L 38-126 code=ALKP) [id number] 05:06:00 Test Item Value Reference Range Comments PHOSPHOROUS (test code=PHOS) 1.6 MG/DL 2.5-4.5 [id number] 05:06:00 Test Item Value Reference Range Comments MAGNESIUM (test code=MAG) 1.9 MG/DL 1.6-2.3 COMPREHENSIVE METABOLIC [id number] 04:59:00 Test Item Value Reference Range Comments SODIUM (test code=NA) 126 MMOL/L 137-145 POTASSIUM (test code=K) 5.9 MMOL/L 3.5-5.1 CHLORIDE (test code=CL) 95 MMOL/L 98-107 CARBON DIOXIDE (test code=CO2) MMOL/L 22-30 GLUCOSE (test code=GLU) MG/DL 74-106 BLOOD UREA NITROGEN (test code=BUN) MG/DL 9-20 GLOMERULAR FILTRATION RATE (test code=GFR) CREATININE (test code=CREAT) MG/DL 0.66-1.25 TOTAL PROTEIN (test code=PROT) G/DL 6.2-7.6 ALBUMIN (test code=ALB) 2.3 G/DL 3.5-5.0 CALCIUM (test code=CA) MG/DL 8.7-9.7 BILIRUBIN TOTAL (test code=BILT) MG/DL 0.2-1.3 SGOT/AST (test code=AST) UNITS/L 15-37 SGPT/ALT (test code=ALT) UNITS/L <50 ALKALINE PHOSPHATASE (test code=ALKP) UNITS/L 38-126 [id number] 04:59:00 Test Item Value Reference Range Comments PHOSPHOROUS (test code=PHOS) MG/DL 2.5-4.5 [id number] 04:59:00 Test Item Value Reference Range Comments MAGNESIUM (test code=MAG) MG/DL 1.6-2.3 COMPREHENSIVE METABOLIC [id number] 04:58:00 Test Item Value Reference Range Comments SODIUM (test code=NA) MMOL/L 137-145 POTASSIUM (test code=K) MMOL/L 3.5-5.1 CHLORIDE (test code=CL) 95 MMOL/L 98-107 CARBON DIOXIDE (test code=CO2) MMOL/L 22-30 GLUCOSE (test code=GLU) MG/DL 74-106 BLOOD UREA NITROGEN (test code=BUN) MG/DL 9-20 GLOMERULAR FILTRATION RATE (test code=GFR) CREATININE (test code=CREAT) MG/DL 0.66-1.25 TOTAL PROTEIN (test code=PROT) G/DL 6.2-7.6 ALBUMIN (test code=ALB) G/DL 3.5-5.0 CALCIUM (test code=CA) MG/DL 8.7-9.7 BILIRUBIN TOTAL (test code=BILT) MG/DL 0.2-1.3 SGOT/AST (test code=AST) UNITS/L 15-37 SGPT/ALT (test code=ALT) UNITS/L <50 ALKALINE PHOSPHATASE (test code=ALKP) UNITS/L 38-126 [id number] 04:58:00 Test Item Value Reference Range Comments PHOSPHOROUS (test code=PHOS) MG/DL 2.5-4.5 [id number] 04:58:00 Test Item Value Reference Range Comments MAGNESIUM (test code=MAG) MG/DL 1.6-2.3 GLUCOSE BEDSIDE [id number] 20:19:00 Test Item Value Reference Range Comments GLUCOSE BEDSIDE TESTING (test code=GLUBED) 196 MG/DL 60-99 GLUCOSE BEDSIDE [id number] 17:09:00 Test Item Value Reference Range Comments GLUCOSE BEDSIDE TESTING (test code=GLUBED) 179 MG/DL 60-99 GLUCOSE BEDSIDE [id number] 10:54:00 Test Item Value Reference Range Comments GLUCOSE BEDSIDE TESTING (test code=GLUBED) 208 MG/DL 60-99 CBC W/AUTO [id number] 08:53:00 Test Item Value Reference Range Comments WHITE BLOOD CELL (test 2.6 K/MM3 3.8-9.8 code=WBC) RED BLOOD CELL (test code=RBC) 2.06 M/MM3 3.95-5.67 HEMOGLOBIN (test code=HGB) 7.1 G/DL 12.4-16.7 HEMATOCRIT (test code=HCT) 21.9 % 35.9-49.5 MEAN CELL VOLUME (test 106 fL 81.7-96.1 code=MCV) MEAN CELL HGB (test code=MCH) 34.5 pg 27.6-33.2 MEAN CELL HGB CONCETRATION 32.4 % 32.9-35.5 (test code=MCHC) RED CELL DISTRIBUTION WIDTH 20.2 % 12.1-15.2 (test code=RDW) PLATELET COUNT (test code=PLT) 26 K/MM3 129-368 CALLED TO [employer] & READBACK ON 03/10/19 AT 0604 BY Jordon Nichols MEAN PLATELET VOLUME (test 12.8 fl 7.4-10.4 code=MPV) NEUTROPHIL % (test code=NT%) 84.8 % 43-75 IMMATURE GRANULOCYTE % (test 0.8 % 0.0-2.0 code=IG%) LYMPHOCYTE % (test code=LY%) 9.5 % 14-44 MONOCYTE % (test code=MO%) 4.5 % 4-13 EOSINOPHIL % (test code=EO%) 0.4 % 0-6 BASOPHIL % (test code=BA%) 0 % 0-2 NUCLEATED RBC % (test 0.8 % 0-1.0 code=NRBC%) NEUTROPHIL # (test code=NT#) 2.24 K/mm3 2.0-7.6 IMMATURE GRANULOCYTE # (test 0.02 x10 3/uL 0-0.03 code=IG#) LYMPHOCYTE # (test code=LY#) 0.25 K/mm3 1.0-3.8 MONOCYTE # (test code=MO#) 0.12 K/mm3 0.1-0.8 EOSINOPHIL # (test code=EO#) 0.01 K/mm3 0.0-0.2 BASOPHIL # (test code=BA#) 0 K/mm3 0.0-0.2 NUCLEATED RBC # (test 0.02 K/mm3 0.0-0.1 code=NRBC#) NUCLEATED RED BLOOD CELL (test 1 0-0 code=NRBC) DIFFERENTIAL [id number] 08:53:00 Test Item Value Reference Range Comments RBC MORPHOLOGY REQUIRED (test code=RBCM) NORMAL PLATELET ESTIMATE (test code=PLTEST) MARKED DECREASED ADEQUATE PLATELET MORPHOLOGY (test code=PLTMORPH) NORMAL NORMAL GLUCOSE BEDSIDE [id number] 07:32:00 Test Item Value Reference Range Comments GLUCOSE BEDSIDE TESTING (test code=GLUBED) 156 MG/DL 60-99 PROTHROMBIN [id number] 06:29:00 Test Item Value Reference Range Comments PROTHROMBIN TIME PATIENT (test 60.9 SECONDS 9.6-11.6 CALLED TO & READBACK ON code=PTP) 03/10/19 AT 0625 BY Jordon Nichols INTERNATIONAL NORMAL RATIO 6.2 0.8-1.1 CALLED TO & READBACK ON (test code=INR) 03/10/19 AT 0626 BY Valerie Nichols INR is to be used only for monitoring oral anticoagulanttherapy. INDICATION INR VALUE 1. Prophylaxis, deep venous thrombosis, including high risk surgery. 2.0 - 3.0 2. Prophylaxis, deep venous thrombosis, hip surgery, treatment for deep venous thrombosis or pulmonary prevention of systemic embolism in patients with valvular heart disease, atrial fibrillation, tissue heart valve, or acute myocardial infarction. 2.0 - 3.0 3. Mechanical prosthesis heart valves, recurrent systemic embolism. 3.0 - 4.5 PTT [id number] 06:29:00 Test Item Value Reference Range Comments PTT ACTIVATED (test 92.8 SECONDS 22.0-33.0 CALLED TO YARIEL Cloud & code=APTT) READBACK ON 03/10/19 AT 0627 BY Jordon Nichols B-TYPE NATRIURETIC [id number] 06:27:00 Test Item Value Reference Range Comments B-TYPE NATRIURETIC PEPTIDE (test code=BNP) 560.0 PG/ML 0-100 COMPREHENSIVE METABOLIC [id number] 06:24:00 Test Item Value Reference Range Comments SODIUM (test code=NA) 127 MMOL/L 137-145 POTASSIUM (test code=K) 4.5 MMOL/L 3.5-5.1 CHLORIDE (test code=CL) 92 MMOL/L 98-107 CARBON DIOXIDE (test code=CO2) 30 MMOL/L 22-30 GLUCOSE (test code=GLU) 129 MG/DL 74-106 BLOOD UREA NITROGEN (test 37 MG/DL 9-20 code=BUN) GLOMERULAR FILTRATION RATE 21 Reporting units: (test code=GFR) ml/min/1.73 m2 (Modified MDRD Formula)Reference Range: > or=60 ml/min/1.73 m2 CREATININE (test code=CREAT) 3.00 MG/DL 0.66-1.25 TOTAL PROTEIN (test code=PROT) 4.2 G/DL 6.2-7.6 ALBUMIN (test code=ALB) 2.2 G/DL 3.5-5.0 CALCIUM (test code=CA) 7.5 MG/DL 8.4-10.2 BILIRUBIN TOTAL (test 1.1 MG/DL 0.2-1.3 code=BILT) SGOT/AST (test code=AST) 47 UNITS/L 17-59 SGPT/ALT (test code=ALT) 20 UNITS/L <50 ALKALINE PHOSPHATASE (test 215 UNITS/L 38-126 code=ALKP) [id number] 06:24:00 Test Item Value Reference Range Comments PHOSPHOROUS (test code=PHOS) 1.8 MG/DL 2.5-4.5 [id number] 06:24:00 Test Item Value Reference Range Comments MAGNESIUM (test code=MAG) 2.0 MG/DL 1.6-2.3 COMPREHENSIVE METABOLIC [id number] 06:23:00 Test Item Value Reference Range Comments SODIUM (test code=NA) 127 MMOL/L 137-145 POTASSIUM (test code=K) 4.5 MMOL/L 3.5-5.1 CHLORIDE (test code=CL) 92 MMOL/L 98-107 CARBON DIOXIDE (test code=CO2) 30 MMOL/L 22-30 GLUCOSE (test code=GLU) 129 MG/DL 74-106 BLOOD UREA NITROGEN (test 37 MG/DL 9-20 code=BUN) GLOMERULAR FILTRATION RATE 21 Reporting units: (test code=GFR) ml/min/1.73 m2 (Modified MDRD Formula)Reference Range: > or=60 ml/min/1.73 m2 CREATININE (test code=CREAT) 3.00 MG/DL 0.66-1.25 TOTAL PROTEIN (test code=PROT) 4.2 G/DL 6.2-7.6 ALBUMIN (test code=ALB) 2.2 G/DL 3.5-5.0 CALCIUM (test code=CA) MG/DL 8.7-9.7 BILIRUBIN TOTAL (test 1.1 MG/DL 0.2-1.3 code=BILT) SGOT/AST (test code=AST) 47 UNITS/L 17-59 SGPT/ALT (test code=ALT) UNITS/L <50 ALKALINE PHOSPHATASE (test 215 UNITS/L 38-126 code=ALKP) [id number] 06:23:00 Test Item Value Reference Range Comments PHOSPHOROUS (test code=PHOS) 1.8 MG/DL 2.5-4.5 [id number] 06:23:00 Test Item Value Reference Range Comments MAGNESIUM (test code=MAG) MG/DL 1.6-2.3 COMPREHENSIVE METABOLIC [id number] 06:21:00 Test Item Value Reference Range Comments SODIUM (test code=NA) 127 MMOL/L 137-145 POTASSIUM (test code=K) 4.5 MMOL/L 3.5-5.1 CHLORIDE (test code=CL) 92 MMOL/L 98-107 CARBON DIOXIDE (test code=CO2) MMOL/L 22-30 GLUCOSE (test code=GLU) MG/DL 74-106 BLOOD UREA NITROGEN (test code=BUN) MG/DL 9-20 GLOMERULAR FILTRATION RATE (test code=GFR) CREATININE (test code=CREAT) MG/DL 0.66-1.25 TOTAL PROTEIN (test code=PROT) G/DL 6.2-7.6 ALBUMIN (test code=ALB) 2.2 G/DL 3.5-5.0 CALCIUM (test code=CA) MG/DL 8.7-9.7 BILIRUBIN TOTAL (test code=BILT) MG/DL 0.2-1.3 SGOT/AST (test code=AST) UNITS/L 15-37 SGPT/ALT (test code=ALT) UNITS/L <50 ALKALINE PHOSPHATASE (test code=ALKP) UNITS/L 38-126 [id number] 06:21:00 Test Item Value Reference Range Comments PHOSPHOROUS (test code=PHOS) MG/DL 2.5-4.5 [id number] 06:21:00 Test Item Value Reference Range Comments MAGNESIUM (test code=MAG) MG/DL 1.6-2.3 COMPREHENSIVE METABOLIC [id number] 06:20:00 Test Item Value Reference Range Comments SODIUM (test code=NA) 127 MMOL/L 137-145 POTASSIUM (test code=K) MMOL/L 3.5-5.1 CHLORIDE (test code=CL) 92 MMOL/L 98-107 CARBON DIOXIDE (test code=CO2) MMOL/L 22-30 GLUCOSE (test code=GLU) MG/DL 74-106 BLOOD UREA NITROGEN (test code=BUN) MG/DL 9-20 GLOMERULAR FILTRATION RATE (test code=GFR) CREATININE (test code=CREAT) MG/DL 0.66-1.25 TOTAL PROTEIN (test code=PROT) G/DL 6.2-7.6 ALBUMIN (test code=ALB) 2.2 G/DL 3.5-5.0 CALCIUM (test code=CA) MG/DL 8.7-9.7 BILIRUBIN TOTAL (test code=BILT) MG/DL 0.2-1.3 SGOT/AST (test code=AST) UNITS/L 15-37 SGPT/ALT (test code=ALT) UNITS/L <50 ALKALINE PHOSPHATASE (test code=ALKP) UNITS/L 38-126 [id number] 06:20:00 Test Item Value Reference Range Comments PHOSPHOROUS (test code=PHOS) MG/DL 2.5-4.5 [id number] 06:20:00 Test Item Value Reference Range Comments MAGNESIUM (test code=MAG) MG/DL 1.6-2.3 CBC W/AUTO [id number] 06:07:00 Test Item Value Reference Range Comments WHITE BLOOD CELL (test 2.6 K/MM3 3.8-9.8 code=WBC) RED BLOOD CELL (test code=RBC) 2.06 M/MM3 3.95-5.67 HEMOGLOBIN (test code=HGB) 7.1 G/DL 12.4-16.7 HEMATOCRIT (test code=HCT) 21.9 % 35.9-49.5 MEAN CELL VOLUME (test 106 fL 81.7-96.1 code=MCV) MEAN CELL HGB (test code=MCH) 34.5 pg 27.6-33.2 MEAN CELL HGB CONCETRATION 32.4 % 32.9-35.5 (test code=MCHC) RED CELL DISTRIBUTION WIDTH 20.2 % 12.1-15.2 (test code=RDW) PLATELET COUNT (test code=PLT) 26 K/MM3 129-368 CALLED TO YARIEL Cloud & READBACK ON 03/10/19 AT 0604 BY Jordon Nichols MEAN PLATELET VOLUME (test 12.8 fl 7.4-10.4 code=MPV) NEUTROPHIL % (test code=NT%) 84.8 % 43-75 IMMATURE GRANULOCYTE % (test 0.8 % 0.0-2.0 code=IG%) LYMPHOCYTE % (test code=LY%) 9.5 % 14-44 MONOCYTE % (test code=MO%) 4.5 % 4-13 EOSINOPHIL % (test code=EO%) 0.4 % 0-6 BASOPHIL % (test code=BA%) 0 % 0-2 NUCLEATED RBC % (test 0.8 % 0-1.0 code=NRBC%) NEUTROPHIL # (test code=NT#) 2.24 K/mm3 2.0-7.6 IMMATURE GRANULOCYTE # (test 0.02 x10 3/uL 0-0.03 code=IG#) LYMPHOCYTE # (test code=LY#) 0.25 K/mm3 1.0-3.8 MONOCYTE # (test code=MO#) 0.12 K/mm3 0.1-0.8 EOSINOPHIL # (test code=EO#) 0.01 K/mm3 0.0-0.2 BASOPHIL # (test code=BA#) 0 K/mm3 0.0-0.2 NUCLEATED RBC # (test 0.02 K/mm3 0.0-0.1 code=NRBC#) DIFFERENTIAL [id number] 06:07:00 Test Item Value Reference Range Comments RBC MORPHOLOGY REQUIRED (test code=RBCM) PLATELET ESTIMATE (test code=PLTEST) ADEQUATE PLATELET MORPHOLOGY (test code=PLTMORPH) NORMAL CBC W/AUTO [id number] 06:07:00 Test Item Value Reference Range Comments WHITE BLOOD CELL (test 2.6 K/MM3 3.8-9.8 code=WBC) RED BLOOD CELL (test code=RBC) 2.06 M/MM3 3.95-5.67 HEMOGLOBIN (test code=HGB) 7.1 G/DL 12.4-16.7 HEMATOCRIT (test code=HCT) 21.9 % 35.9-49.5 MEAN CELL VOLUME (test 106 fL 81.7-96.1 code=MCV) MEAN CELL HGB (test code=MCH) 34.5 pg 27.6-33.2 MEAN CELL HGB CONCETRATION 32.4 % 32.9-35.5 (test code=MCHC) RED CELL DISTRIBUTION WIDTH 20.2 % 12.1-15.2 (test code=RDW) PLATELET COUNT (test code=PLT) 26 K/MM3 129-368 CALLED TO YARIEL Cloud & READBACK ON 03/10/19 AT 0604 BY Jordon Nichols MEAN PLATELET VOLUME (test 12.8 fl 7.4-10.4 code=MPV) NEUTROPHIL % (test code=NT%) 84.8 % 43-75 IMMATURE GRANULOCYTE % (test 0.8 % 0.0-2.0 code=IG%) LYMPHOCYTE % (test code=LY%) 9.5 % 14-44 MONOCYTE % (test code=MO%) 4.5 % 4-13 EOSINOPHIL % (test code=EO%) 0.4 % 0-6 BASOPHIL % (test code=BA%) 0 % 0-2 NUCLEATED RBC % (test 0.8 % 0-1.0 code=NRBC%) NEUTROPHIL # (test code=NT#) 2.24 K/mm3 2.0-7.6 IMMATURE GRANULOCYTE # (test 0.02 x10 3/uL 0-0.03 code=IG#) LYMPHOCYTE # (test code=LY#) 0.25 K/mm3 1.0-3.8 MONOCYTE # (test code=MO#) 0.12 K/mm3 0.1-0.8 EOSINOPHIL # (test code=EO#) 0.01 K/mm3 0.0-0.2 BASOPHIL # (test code=BA#) 0 K/mm3 0.0-0.2 NUCLEATED RBC # (test 0.02 K/mm3 0.0-0.1 code=NRBC#) DIFFERENTIAL [id number] 06:07:00 Test Item Value Reference Range Comments RBC MORPHOLOGY REQUIRED (test code=RBCM) PLATELET ESTIMATE (test code=PLTEST) ADEQUATE PLATELET MORPHOLOGY (test code=PLTMORPH) NORMAL GLUCOSE BEDSIDE [id number] 20:06:00 Test Item Value Reference Range Comments GLUCOSE BEDSIDE TESTING (test code=GLUBED) 218 MG/DL 60-99 GLUCOSE BEDSIDE [id number] 16:36:00 Test Item Value Reference Range Comments GLUCOSE BEDSIDE TESTING (test code=GLUBED) 268 MG/DL 60-99 [id number] 12:21:00 Test Item Value Reference Range Comments MAGNESIUM (test code=MAG) 1.6 MG/DL 1.6-2.3 Specimen comments: add onGLUCOSE BEDSIDE [id number] 12:16:00 Test Item Value Reference Range Comments GLUCOSE BEDSIDE TESTING (test code=GLUBED) 146 MG/DL 60-99 CBC W/AUTO [id number] 10:32:00 Test Item Value Reference Range Comments WHITE BLOOD CELL (test 2.8 K/MM3 3.8-9.8 code=WBC) RED BLOOD CELL (test code=RBC) 2.07 M/MM3 3.95-5.67 HEMOGLOBIN (test code=HGB) 7.2 G/DL 12.4-16.7 HEMATOCRIT (test code=HCT) 21.1 % 35.9-49.5 MEAN CELL VOLUME (test 102 fL 81.7-96.1 code=MCV) MEAN CELL HGB (test code=MCH) 34.8 pg 27.6-33.2 MEAN CELL HGB CONCETRATION 34.1 % 32.9-35.5 (test code=MCHC) RED CELL DISTRIBUTION WIDTH 19.9 % 12.1-15.2 (test code=RDW) PLATELET COUNT (test code=PLT) 41 K/MM3 129-368 CALLED TO [place] G & READBACK ON 03/09/19 AT 0445 BY Albaro Chacon MEAN PLATELET VOLUME (test 10.8 fl 7.4-10.4 code=MPV) NEUTROPHIL % (test code=NT%) 87.9 % 43-75 IMMATURE GRANULOCYTE % (test 1.1 % 0.0-2.0 code=IG%) LYMPHOCYTE % (test code=LY%) 6.7 % 14-44 MONOCYTE % (test code=MO%) 4.3 % 4-13 EOSINOPHIL % (test code=EO%) 0.0 % 0-6 BASOPHIL % (test code=BA%) 0 % 0-2 NUCLEATED RBC % (test 0.0 % 0-1.0 code=NRBC%) NEUTROPHIL # (test code=NT#) 2.48 K/mm3 2.0-7.6 IMMATURE GRANULOCYTE # (test 0.03 x10 3/uL 0-0.03 code=IG#) LYMPHOCYTE # (test code=LY#) 0.19 K/mm3 1.0-3.8 MONOCYTE # (test code=MO#) 0.12 K/mm3 0.1-0.8 EOSINOPHIL # (test code=EO#) 0.00 K/mm3 0.0-0.2 BASOPHIL # (test code=BA#) 0 K/mm3 0.0-0.2 NUCLEATED RBC # (test 0.00 K/mm3 0.0-0.1 code=NRBC#) DIFFERENTIAL [id number] 10:32:00 Test Item Value Reference Range Comments RBC MORPHOLOGY REQUIRED (test code=RBCM) NORMAL POIKILOCYTOSIS (test code=POIK) FEW NONE ANISOCYTOSIS (test code=ANISO) SLIGHT NONE MACROCYTOSIS (test code=MACR) FEW NONE PLATELET ESTIMATE (test code=PLTEST) DECREASED ADEQUATE PLATELET MORPHOLOGY (test code=PLTMORPH) NORMAL NORMAL GLUCOSE BEDSIDE [id number] 08:41:00 Test Item Value Reference Range Comments GLUCOSE BEDSIDE TESTING (test code=GLUBED) 153 MG/DL 60-99 PROTHROMBIN [id number] 05:44:00 Test Item Value Reference Range Comments PROTHROMBIN TIME PATIENT (test 81.4 SECONDS 9.6-11.6 CALLED TO Yariel Mann & code=PTP) READBACK ON 03/09/19 AT 0542 BY Albaro Chacon INTERNATIONAL NORMAL RATIO 7.8 0.8-1.1 CALLED TO Yariel Mann & (test code=INR) READBACK ON 03/09/19 AT 0542 BY Albaro ChaconThe INR is to be used only for monitoring oral anticoagulanttherapy. INDICATION INR VALUE 1. Prophylaxis, deep venous thrombosis, including high risk surgery. 2.0 - 3.0 2. Prophylaxis, deep venous thrombosis, hip surgery, treatment for deep venous thrombosis or pulmonary prevention of systemic embolism in patients with valvular heart disease, atrial fibrillation, tissue heart valve, or acute myocardial infarction. 2.0 - 3.0 3. Mechanical prosthesis heart valves, recurrent systemic embolism. 3.0 - 4.5 PTT [id number] 05:44:00 Test Item Value Reference Range Comments PTT ACTIVATED (test 103.6 SECONDS 21.0-33.0 CALLED TO Corine Mann & code=APTT) READBACK ON 03/09/19 AT 0542 BY Albaro Chacon COMPREHENSIVE METABOLIC [id number] 04:58:00 Test Item Value Reference Range Comments SODIUM (test code=NA) 126 MMOL/L 137-145 POTASSIUM (test code=K) 2.6 MMOL/L 3.5-5.1 CALLED TO YARIEL Cloud& READBACK ON 03/09/19 AT 0458 BY Vamsi Rose CHLORIDE (test code=CL) 89 MMOL/L 98-107 CARBON DIOXIDE (test code=CO2) 31 MMOL/L 22-30 ANION GAP (test code=GAP) 9 MMOL/L 14-24 GLUCOSE (test code=GLU) 131 MG/DL 74-106 BLOOD UREA NITROGEN (test 33 MG/DL 9-20 code=BUN) GLOMERULAR FILTRATION RATE 23 Reporting units: (test code=GFR) ml/min/1.73 m2 (Modified MDRD Formula)Reference Range: > or=60 ml/min/1.73 m2 CREATININE (test code=CREAT) 2.70 MG/DL 0.66-1.25 TOTAL PROTEIN (test code=PROT) 4.1 G/DL 6.2-7.6 ALBUMIN (test code=ALB) 2.2 G/DL 3.5-5.0 CALCIUM (test code=CA) 7.2 MG/DL 8.4-10.2 BILIRUBIN TOTAL (test 1.2 MG/DL 0.2-1.3 code=BILT) SGOT/AST (test code=AST) 40 UNITS/L 17-59 SGPT/ALT (test code=ALT) 18 UNITS/L <50 ALKALINE PHOSPHATASE (test 186 UNITS/L 38-126 code=ALKP) COMPREHENSIVE METABOLIC [id number] 04:53:00 Test Item Value Reference Range Comments SODIUM (test code=NA) 126 MMOL/L 137-145 POTASSIUM (test code=K) MMOL/L 3.5-5.1 CHLORIDE (test code=CL) 89 MMOL/L 98-107 CARBON DIOXIDE (test code=CO2) MMOL/L 22-30 GLUCOSE (test code=GLU) MG/DL 74-106 BLOOD UREA NITROGEN (test code=BUN) MG/DL 9-20 GLOMERULAR FILTRATION RATE (test code=GFR) CREATININE (test code=CREAT) MG/DL 0.66-1.25 TOTAL PROTEIN (test code=PROT) G/DL 6.2-7.6 ALBUMIN (test code=ALB) 2.2 G/DL 3.5-5.0 CALCIUM (test code=CA) MG/DL 8.7-9.7 BILIRUBIN TOTAL (test code=BILT) MG/DL 0.2-1.3 SGOT/AST (test code=AST) UNITS/L 15-37 SGPT/ALT (test code=ALT) UNITS/L <50 ALKALINE PHOSPHATASE (test code=ALKP) UNITS/L 38-126 CBC W/AUTO [id number] 04:47:00 Test Item Value Reference Range Comments WHITE BLOOD CELL (test 2.8 K/MM3 3.8-9.8 code=WBC) RED BLOOD CELL (test code=RBC) 2.07 M/MM3 3.95-5.67 HEMOGLOBIN (test code=HGB) 7.2 G/DL 12.4-16.7 HEMATOCRIT (test code=HCT) 21.1 % 35.9-49.5 MEAN CELL VOLUME (test 102 fL 81.7-96.1 code=MCV) MEAN CELL HGB (test code=MCH) 34.8 pg 27.6-33.2 MEAN CELL HGB CONCETRATION 34.1 % 32.9-35.5 (test code=MCHC) RED CELL DISTRIBUTION WIDTH 19.9 % 12.1-15.2 (test code=RDW) PLATELET COUNT (test code=PLT) 41 K/MM3 129-368 CALLED TO Yariel G & READBACK ON 03/09/19 AT 0445 BY Albaro Chacon MEAN PLATELET VOLUME (test 10.8 fl 7.4-10.4 code=MPV) NEUTROPHIL % (test code=NT%) 87.9 % 43-75 IMMATURE GRANULOCYTE % (test 1.1 % 0.0-2.0 code=IG%) LYMPHOCYTE % (test code=LY%) 6.7 % 14-44 MONOCYTE % (test code=MO%) 4.3 % 4-13 EOSINOPHIL % (test code=EO%) 0.0 % 0-6 BASOPHIL % (test code=BA%) 0 % 0-2 NUCLEATED RBC % (test 0.0 % 0-1.0 code=NRBC%) NEUTROPHIL # (test code=NT#) 2.48 K/mm3 2.0-7.6 IMMATURE GRANULOCYTE # (test 0.03 x10 3/uL 0-0.03 code=IG#) LYMPHOCYTE # (test code=LY#) 0.19 K/mm3 1.0-3.8 MONOCYTE # (test code=MO#) 0.12 K/mm3 0.1-0.8 EOSINOPHIL # (test code=EO#) 0.00 K/mm3 0.0-0.2 BASOPHIL # (test code=BA#) 0 K/mm3 0.0-0.2 NUCLEATED RBC # (test 0.00 K/mm3 0.0-0.1 code=NRBC#) DIFFERENTIAL [id number] 04:47:00 Test Item Value Reference Range Comments RBC MORPHOLOGY REQUIRED (test code=RBCM) PLATELET ESTIMATE (test code=PLTEST) ADEQUATE PLATELET MORPHOLOGY (test code=PLTMORPH) NORMAL CBC W/AUTO [id number] 04:47:00 Test Item Value Reference Range Comments WHITE BLOOD CELL (test 2.8 K/MM3 3.8-9.8 code=WBC) RED BLOOD CELL (test code=RBC) 2.07 M/MM3 3.95-5.67 HEMOGLOBIN (test code=HGB) 7.2 G/DL 12.4-16.7 HEMATOCRIT (test code=HCT) 21.1 % 35.9-49.5 MEAN CELL VOLUME (test 102 fL 81.7-96.1 code=MCV) MEAN CELL HGB (test code=MCH) 34.8 pg 27.6-33.2 MEAN CELL HGB CONCETRATION 34.1 % 32.9-35.5 (test code=MCHC) RED CELL DISTRIBUTION WIDTH 19.9 % 12.1-15.2 (test code=RDW) PLATELET COUNT (test code=PLT) 41 K/MM3 129-368 CALLED TO Yariel Mann & READBACK ON 03/09/19 AT 0445 BY Albaro Chacon MEAN PLATELET VOLUME (test 10.8 fl 7.4-10.4 code=MPV) NEUTROPHIL % (test code=NT%) 87.9 % 43-75 IMMATURE GRANULOCYTE % (test 1.1 % 0.0-2.0 code=IG%) LYMPHOCYTE % (test code=LY%) 6.7 % 14-44 MONOCYTE % (test code=MO%) 4.3 % 4-13 EOSINOPHIL % (test code=EO%) 0.0 % 0-6 BASOPHIL % (test code=BA%) 0 % 0-2 NUCLEATED RBC % (test 0.0 % 0-1.0 code=NRBC%) NEUTROPHIL # (test code=NT#) 2.48 K/mm3 2.0-7.6 IMMATURE GRANULOCYTE # (test 0.03 x10 3/uL 0-0.03 code=IG#) LYMPHOCYTE # (test code=LY#) 0.19 K/mm3 1.0-3.8 MONOCYTE # (test code=MO#) 0.12 K/mm3 0.1-0.8 EOSINOPHIL # (test code=EO#) 0.00 K/mm3 0.0-0.2 BASOPHIL # (test code=BA#) 0 K/mm3 0.0-0.2 NUCLEATED RBC # (test 0.00 K/mm3 0.0-0.1 code=NRBC#) DIFFERENTIAL [id number] 04:47:00 Test Item Value Reference Range Comments RBC MORPHOLOGY REQUIRED (test code=RBCM) PLATELET ESTIMATE (test code=PLTEST) ADEQUATE PLATELET MORPHOLOGY (test code=PLTMORPH) NORMAL PROTHROMBIN [id number] 21:33:00 Test Item Value Reference Range Comments PROTHROMBIN TIME PATIENT (test 82.4 SECONDS 9.6-11.6 CALLED TO YARIEL Cloud RN & code=PTP) READBACK ON 03/08/19 AT 5326 BY Amaury Corcoran INTERNATIONAL NORMAL RATIO 7.9 0.8-1.1 CALLED TO YARIEL Cloud RN & (test code=INR) READBACK ON 03/08/19 AT 2126 BY Alexia Corcoran INR is to be used only for monitoring oral anticoagulanttherapy. INDICATION INR VALUE 1. Prophylaxis, deep venous thrombosis, including high risk surgery. 2.0 - 3.0 2. Prophylaxis, deep venous thrombosis, hip surgery, treatment for deep venous thrombosis or pulmonary prevention of systemic embolism in patients with valvular heart disease, atrial fibrillation, tissue heart valve, or acute myocardial infarction. 2.0 - 3.0 3. Mechanical prosthesis heart valves, recurrent systemic embolism. 3.0 - 4.5 GLUCOSE BEDSIDE [id number] 19:51:00 Test Item Value Reference Range Comments GLUCOSE BEDSIDE TESTING (test code=GLUBED) 228 MG/DL 60-99 GLUCOSE BEDSIDE [id number] 17:04:00 Test Item Value Reference Range Comments GLUCOSE BEDSIDE TESTING (test code=GLUBED) 240 MG/DL 60-99 GLUCOSE BEDSIDE [id number] 12:46:00 Test Item Value Reference Range Comments GLUCOSE BEDSIDE TESTING (test code=GLUBED) 199 MG/DL 60-99 PROTHROMBIN [id number] 11:21:00 Test Item Value Reference Range Comments PROTHROMBIN TIME PATIENT > 90.0 SECONDS 9.6-11.6 CALLED TO [facility] (test code=PTP) READBACK ON 03/08/19 AT 1120 BY Keshawn Lee INTERNATIONAL NORMAL RATIO > 8.9 0.8-1.1 CALLED TO [facility] & (test code=INR) READBACK ON 03/08/19 AT 1121 BY Sidney Lee INR is to be used only for monitoring oral anticoagulanttherapy. INDICATION INR VALUE 1. Prophylaxis, deep venous thrombosis, including high risk surgery. 2.0 - 3.0 2. Prophylaxis, deep venous thrombosis, hip surgery, treatment for deep venous thrombosis or pulmonary prevention of systemic embolism in patients with valvular heart disease, atrial fibrillation, tissue heart valve, or acute myocardial infarction. 2.0 - 3.0 3. Mechanical prosthesis heart valves, recurrent systemic embolism. 3.0 - 4.5 GLUCOSE BEDSIDE [id number] 09:13:00 Test Item Value Reference Range Comments GLUCOSE BEDSIDE TESTING (test code=GLUBED) 83 MG/DL 60-99 [id number] 06:12:00 Test Item Value Reference Range Comments TROPONIN-I (test code=TROPI) 0.056 NG/ML 0.012-0.033 PROTHROMBIN [id number] 01:47:00 Test Item Value Reference Range Comments PROTHROMBIN TIME PATIENT > 90.0 SECONDS 9.6-11.6 Specimen ran multiple (test code=PTP) times on two instruments. Results from2 separate specimens match. Patient under chemo CALLED TO [facility] & READBACK ON 03/08/19 AT 0140 BY Toby Chacon TO & READBACK ON 03/08/19 AT 0140 BY Albaro Chacon INTERNATIONAL NORMAL RATIO > 8.9 0.8-1.1 CALLED TO [facility] & (test code=INR) READBACK ON 03/08/19 AT 0140 BY Toby Chacon TO & READBACK ON 03/08/19 AT 0140 BY Albaro ChaconThe INR is to be used only for monitoring oral anticoagulanttherapy. INDICATION INR VALUE 1. Prophylaxis, deep venous thrombosis, including high risk surgery. 2.0 - 3.0 2. Prophylaxis, deep venous thrombosis, hip surgery, treatment for deep venous thrombosis or pulmonary prevention of systemic embolism in patients with valvular heart disease, atrial fibrillation, tissue heart valve, or acute myocardial infarction. 2.0 - 3.0 3. Mechanical prosthesis heart valves, recurrent systemic embolism. 3.0 - 4.5 PTT [id number] 01:47:00 Test Item Value Reference Range Comments PTT ACTIVATED (test 111.8 SECONDS 21.0-33.0 CALLED TO Terri & code=APTT) READBACK ON 03/08/19 AT 0140 BY Albaro ChaconCALLED TO & READBACK ON 03/08/19 AT 0140 BY Ablaro Chacon [id number] 01:47:00 Test Item Value Reference Range Comments FIBRINOGEN (test code=FIB) 297 MG/DL 185-512 LIPOPROTEIN LDL [id number] 00:50:00 Test Item Value Reference Range Comments LIPOPROTEIN LDL DIRECT (test 31 mg/dL 100-129 code=LDLDIR) ===Reference Interval: mg/dL mmol/L ---------Optimal <100 <2.6Near/above optimal 100-129 2.6-3.3Borderline High 130-159 3.4-4.1High 160-189 4.1-4.9Very High >=190 >=4.9=========This LDL result is a direct measurement.========= [id number] 00:50:00 Test Item Value Reference Range Comments TROPONIN-I (test code=TROPI) 0.060 NG/ML 0.012-0.033 - CT ABD PELVIS W/O [id number] 00:41:00 Patient Name: SOLO REARDON Unit No: [id number] EXAMS: CPT CODE: [id number] CT ABD PELVIS W/O CONT 31950 EXAM: - CT ABD PELVIS W/O CONT LOCATION: H57 HISTORY: 73 years-year old Male with rodriguez ca, WEAKNESS AND chf TECHNIQUE: No IV contrast was given, no oral contrast was given. Axial CT was performed through the abdomen and pelvis. Reconstructions - coronal and sagittal planes. Automated exposure reduction (Auto mA/Smart mA)was utilized in compliance with ACR [employer]. COMPARISON: None FINDINGS: Lack of intravenous contrast compromises evaluation of abdominal organs and vasculature. Thoracic: Patchy groundglass opacities are seen in the visualized left lower lobe with trace left pleural effusion. Hepatobiliary: The liver is normal without focal lesion. The gallbladder is normal. No biliary dilation. Pancreas: Normal. Spleen: Normal. Adrenals: Normal. Genitourinary: Nonobstructing 7 mm left upper pole calyceal stone. Right simple renal cysts measure up to 16 mm.The kidneys are otherwise normal with no suspicious renal lesions. No hydronephrosis. The bladder is incompletely distended, limiting evaluation. Prostate seeds are seen. Gastrointestinal: No bowel obstruction or perienteric inflammation. The appendix is not visualized but there are no pericecal inflammatory changes to suggest appendicitis. Vascular: Atherosclerotic calcifications are seen within the aorta and branch vessels. Infrarenalabdominal aortic aneurysm measures 4.3 x 4.1 cm. Lymphatics: No enlarged lymph nodes by CT size criteria. Bones/Soft Tissues: No acute osseous findings. There is mild anasarca. No ventral hernias. Peritoneum/Other : No extraluminal air. No extraluminal fluid. IMPRESSION: Patchy groundglass opacities in the visualized left lower lobe likely [facility] [place] NAME: SOLO REARDON [id number] PHYS: [id number] - [place] [address] : 1945 AGE: 73 SEX: M LOC: Z.344 A PHONE #: [phone] EXAM DATE: 03/08/2019 STATUS: ADM IN FAX #: [phone] RAD #: D/C DT PAGE 1 Signed Report (CONTINUED) Patient Name: SOLO REARDON Unit No: [id number] EXAMS: CPT CODE: [id number] CT ABD PELVIS W/O CONT 18855 <Continued> infectious. Trace left pleural effusion. Infrarenal abdominal aortic aneurysm measures 4.3 cm. Nonobstructing 7 mm left upper pole calyceal stone. Mild anasarca. at 0041 Reported and signed by: Darrel Singh MD CC: Arie Alvarenga MD Technologist: CHELE TSE RT(R)(CT)( MR) CTDI: DLP: Trnscrpt: 03/08/2019 (0041) John SIMON Diaz NAME: SOLO REARDON [id number] PHYS: [place] [address] : 1945 AGE: 73 SEX: M LOC: Z.344 A PHONE #: [phone] EXAM DATE: 03/08/2019 STATUS: ADM IN FAX #: [phone] RAD #: D/C DT PAGE 2 Signed Report Patient Name: SOLO REARDON Unit No: [id number] EXAMS: CPT CODE: [id number] CT ABD PELVIS W/O CONT 38238 < Continued> Orig Print D/T: S: 03/08/2019 (0044) [facility] NAME: SOLO REARDON [id number] PHYS: AG.Arie Richards MD [place] [id number] : 1945 AGE: 73 SEX: M LOC: Z.344 A PHONE #: [phone] EXAM DATE: 03/08/2019 STATUS: ADM IN FAX #: [phone] RAD #: D/C DT PAGE 3 Signed ReportLIPOPROTEIN LDL [id number] 00:33:00 Test Item Value Reference Range Comments LIPOPROTEIN LDL DIRECT (test code=LDLDIR) mg/dL 100-129 [id number] 00:33:00 Test Item Value Reference Range Comments TROPONIN-I (test code=TROPI) 0.060 NG/ML 0.012-0.033 CBC W/AUTO [id number] 23:26:00 Test Item Value Reference Range Comments WHITE BLOOD CELL (test 3.2 K/MM3 3.8-9.8 code=WBC) RED BLOOD CELL (test code=RBC) 2.45 M/MM3 3.95-5.67 HEMOGLOBIN (test code=HGB) 8.4 G/DL 12.4-16.7 HEMATOCRIT (test code=HCT) 25.5 % 35.9-49.5 MEAN CELL VOLUME (test 104 fL 81.7-96.1 code=MCV) MEAN CELL HGB (test code=MCH) 34.3 pg 27.6-33.2 MEAN CELL HGB CONCETRATION 32.9 % 32.9-35.5 (test code=MCHC) RED CELL DISTRIBUTION WIDTH 20.3 % 12.1-15.2 (test code=RDW) PLATELET COUNT (test code=PLT) 17 K/MM3 129-368 CALLED TO ORLIN Vicente& READBACK ON 03/07/19 AT 2200 BY Kemi Barfield NEUTROPHIL % (test code=NT%) 87.7 % 43-75 IMMATURE GRANULOCYTE % (test 1.9 % 0.0-2.0 code=IG%) LYMPHOCYTE % (test code=LY%) 7.6 % 14-44 MONOCYTE % (test code=MO%) 2.5 % 4-13 EOSINOPHIL % (test code=EO%) 0.3 % 0-6 BASOPHIL % (test code=BA%) 0 % 0-2 NUCLEATED RBC % (test 0.0 % 0-1.0 code=NRBC%) NEUTROPHIL # (test code=NT#) 2.76 K/mm3 2.0-7.6 IMMATURE GRANULOCYTE # (test 0.06 x10 3/uL 0-0.03 code=IG#) LYMPHOCYTE # (test code=LY#) 0.24 K/mm3 1.0-3.8 MONOCYTE # (test code=MO#) 0.08 K/mm3 0.1-0.8 EOSINOPHIL # (test code=EO#) 0.01 K/mm3 0.0-0.2 BASOPHIL # (test code=BA#) 0 K/mm3 0.0-0.2 NUCLEATED RBC # (test 0.00 K/mm3 0.0-0.1 code=NRBC#) DIFFERENTIAL [id number] 23:26:00 Test Item Value Reference Range Comments RBC MORPHOLOGY REQUIRED (test code=RBCM) ABNORMAL POLYCHROMASIA (test code=POLC) FEW NONE ANISOCYTOSIS (test code=ANISO) SLIGHT NONE MACROCYTOSIS (test code=MACR) FEW NONE PLATELET ESTIMATE (test code=PLTEST) MRK DEC ADEQUATE PLATELET MORPHOLOGY (test code=PLTMORPH) NORMAL NORMAL B-TYPE NATRIURETIC [id number] 22:05:00 Test Item Value Reference Range Comments B-TYPE NATRIURETIC PEPTIDE (test code=BNP) 218.0 PG/ML 0-100 CBC W/AUTO [id number] 22:00:00 Test Item Value Reference Range Comments WHITE BLOOD CELL (test 3.2 K/MM3 3.8-9.8 code=WBC) RED BLOOD CELL (test code=RBC) 2.45 M/MM3 3.95-5.67 HEMOGLOBIN (test code=HGB) 8.4 G/DL 12.4-16.7 HEMATOCRIT (test code=HCT) 25.5 % 35.9-49.5 MEAN CELL VOLUME (test 104 fL 81.7-96.1 code=MCV) MEAN CELL HGB (test code=MCH) 34.3 pg 27.6-33.2 MEAN CELL HGB CONCETRATION 32.9 % 32.9-35.5 (test code=MCHC) RED CELL DISTRIBUTION WIDTH 20.3 % 12.1-15.2 (test code=RDW) PLATELET COUNT (test code=PLT) 17 K/MM3 129-368 CALLED TO ORLIN Vicente& READBACK ON 03/07/19 AT 2200 BY Kemi Barfield NEUTROPHIL % (test code=NT%) 87.7 % 43-75 IMMATURE GRANULOCYTE % (test 1.9 % 0.0-2.0 code=IG%) LYMPHOCYTE % (test code=LY%) 7.6 % 14-44 MONOCYTE % (test code=MO%) 2.5 % 4-13 EOSINOPHIL % (test code=EO%) 0.3 % 0-6 BASOPHIL % (test code=BA%) 0 % 0-2 NUCLEATED RBC % (test 0.0 % 0-1.0 code=NRBC%) NEUTROPHIL # (test code=NT#) 2.76 K/mm3 2.0-7.6 IMMATURE GRANULOCYTE # (test 0.06 x10 3/uL 0-0.03 code=IG#) LYMPHOCYTE # (test code=LY#) 0.24 K/mm3 1.0-3.8 MONOCYTE # (test code=MO#) 0.08 K/mm3 0.1-0.8 EOSINOPHIL # (test code=EO#) 0.01 K/mm3 0.0-0.2 BASOPHIL # (test code=BA#) 0 K/mm3 0.0-0.2 NUCLEATED RBC # (test 0.00 K/mm3 0.0-0.1 code=NRBC#) DIFFERENTIAL [id number] 22:00:00 Test Item Value Reference Range Comments RBC MORPHOLOGY REQUIRED (test code=RBCM) PLATELET ESTIMATE (test code=PLTEST) ADEQUATE PLATELET MORPHOLOGY (test code=PLTMORPH) NORMAL CBC W/AUTO [id number] 22:00:00 Test Item Value Reference Range Comments WHITE BLOOD CELL (test 3.2 K/MM3 3.8-9.8 code=WBC) RED BLOOD CELL (test code=RBC) 2.45 M/MM3 3.95-5.67 HEMOGLOBIN (test code=HGB) 8.4 G/DL 12.4-16.7 HEMATOCRIT (test code=HCT) 25.5 % 35.9-49.5 MEAN CELL VOLUME (test 104 fL 81.7-96.1 code=MCV) MEAN CELL HGB (test code=MCH) 34.3 pg 27.6-33.2 MEAN CELL HGB CONCETRATION 32.9 % 32.9-35.5 (test code=MCHC) RED CELL DISTRIBUTION WIDTH 20.3 % 12.1-15.2 (test code=RDW) PLATELET COUNT (test code=PLT) 17 K/MM3 129-368 CALLED TO ORLIN Vicente& READBACK ON 03/07/19 AT 2200 BY Kemi Barfield NEUTROPHIL % (test code=NT%) 87.7 % 43-75 IMMATURE GRANULOCYTE % (test 1.9 % 0.0-2.0 code=IG%) LYMPHOCYTE % (test code=LY%) 7.6 % 14-44 MONOCYTE % (test code=MO%) 2.5 % 4-13 EOSINOPHIL % (test code=EO%) 0.3 % 0-6 BASOPHIL % (test code=BA%) 0 % 0-2 NUCLEATED RBC % (test 0.0 % 0-1.0 code=NRBC%) NEUTROPHIL # (test code=NT#) 2.76 K/mm3 2.0-7.6 IMMATURE GRANULOCYTE # (test 0.06 x10 3/uL 0-0.03 code=IG#) LYMPHOCYTE # (test code=LY#) 0.24 K/mm3 1.0-3.8 MONOCYTE # (test code=MO#) 0.08 K/mm3 0.1-0.8 EOSINOPHIL # (test code=EO#) 0.01 K/mm3 0.0-0.2 BASOPHIL # (test code=BA#) 0 K/mm3 0.0-0.2 NUCLEATED RBC # (test 0.00 K/mm3 0.0-0.1 code=NRBC#) DIFFERENTIAL [id number] 22:00:00 Test Item Value Reference Range Comments RBC MORPHOLOGY REQUIRED (test code=RBCM) PLATELET ESTIMATE (test code=PLTEST) ADEQUATE PLATELET MORPHOLOGY (test code=PLTMORPH) NORMAL - XR CHEST [id number] 21:46:00 Patient Name: SOLO REARDON Unit No: [id number] EXAMS: CPT CODE: [id number] XR CHEST 1V [id number] EXAM: - XR CHEST 1V LOCATION: H57 HISTORY: 73 years-old Male with Chest Pain COMPARISON: 03/25/2018 FINDINGS: Single view of the chest was obtained. The cardiomediastinal silhouette is within normal limits. The lungs are well aerated. No large pneumothorax or pleural effusion. Osseous structures and soft tissues demonstrate no acute findings. Advanced atherosclerotic calcification of the aortic knob. The visualized upper abdomen is unremarkable. IMPRESSION: No acute cardiopulmonary abnormality. Electronically Signedby Darrel Singh MD on 03/07/2019 at 2146 Reported and signed by: Darrel Ayala MD CC: Arie Alvarenga MD Technologist: Joya LeeRT(R) Transcrpt Date/Tm/Trnsp: 2018 (2145) John Orig Print D/T: S: 03/07/2019 (2148) [facility] NAME: SOLO REARDON [address] [address] PHYS: [email or web address] - [place] [address] : 1945 AGE: 73 SEX: M LOC: Z.ERS PHONE #: [phone] EXAM DATE: 03/07/2019 STATUS: PRE ER FAX #: [phone] RADIOLOGY NO: PAGE 1 Signed ReportPOC VENOUS BLOOD [id number] 21:35:00 Test Item Value Reference Range Comments POC LACTIC ACID (test code=POCLAC) 2.35 MMOL/L 0.4-2.0 POC VENOUS BLOOD GAS PH (test code=POCPHV) 7.369 7.35-7.45 POC VENOUS BLOOD GAS PCO2 (test code=DUNUEK1A) 47.5 mmHg 35.0-45.0 POC VENOUS BLOOD GAS PO2 (test code=UKKBD7Z) 21.0 mmHG 0-40 POC HCO3 VENOUS (test code=DWSWXT0N) 27.4 MMOL/L 20-26 POC BASE EXCESS VENOUS (test code=POCBEV) 2 MMOL/L -3.0-3.0 POC O2 SATURATION VENOUS (test code=CJJB2FJ) 33 % 72-77 TROPONIN I [id number] 21:35:00 Test Item Value Reference Range Comments TROPONIN I RAPID (test code=TROPIRAP) 0.06 NG/ML 0.00-0.05 CHEMISTRY 8 [id number] 21:35:00 Test Item Value Reference Range Comments IONIZED CALCIUM (test MMOL/L 1.12-1.24 code=CAIABG) ISTAT-TCO2 VENOUS (test MMOL/L 23-32 code=TCO2VP) ISTAT-SODIUM (test code=NAP) MMOL/L 137-144 ISTAT-POTASSIUM (test code=KP) MMOL/L 3.1-4.8 ISTAT-CHLORIDE (test code=CLP) MMOL/L 97-108 ISTAT-GLUCOSE (test code=GLUP) MG/DL 60-99 ISTAT-BUN (test code=BUNP) MG/DL 9-21 BEDSIDE CREATININE (test MG/DL 0.6-1.4 code=CREATBED) GLOMERULAR FILTRATION RATE POC 27 42-98 Reporting units: ml/min/1.73 (test code=GFRBED) m2 (Modified MDRD Formula)Reference Range: > or=60 ml/min/1.73 m2 CHEMISTRY 8 [id number] 21:35:00 Test Item Value Reference Range Comments IONIZED CALCIUM (test 1.04 MMOL/L 1.12-1.24 code=CAIABG) ISTAT-TCO2 VENOUS (test 27 MMOL/L 23-32 code=TCO2VP) ISTAT-SODIUM (test code=NAP) 129 MMOL/L 137-144 ISTAT-POTASSIUM (test 2.6 MMOL/L 3.1-4.8 code=KP) ISTAT-CHLORIDE (test 87 MMOL/L 97-108 code=CLP) ISTAT-GLUCOSE (test 83 MG/DL 60-99 code=GLUP) ISTAT-BUN (test code=BUNP) 28 MG/DL 9-21 BEDSIDE CREATININE (test 2.4 MG/DL 0.6-1.4 code=CREATBED) GLOMERULAR FILTRATION RATE 27 42-98 Reporting units: ml/min/1.73 POC (test code=GFRBED) m2 (Modified MDRD Formula)Reference Range: > or=60 ml/min/1.73 m2 HEPATIC FUNCTION [id number] 21:35:00 Test Item Value Reference Range Comments TOTAL PROTEIN (test code=PROT) 5.1 G/DL 6.2-7.6 ALBUMIN (test code=ALB) 2.9 G/DL 3.5-5.0 BILIRUBIN TOTAL (test code=BILT) 2.0 MG/DL 0.2-1.3 BILIRUBIN DIRECT (test code=BILD) 0.1 MG/DL 0.0-0.3 SGOT/AST (test code=AST) 37 UNITS/L 17-59 SGPT/ALT (test code=ALT) 19 UNITS/L <50 ALKALINE PHOSPHATASE (test code=ALKP) 131 UNITS/L 38-126 [id number] 21:35:00 Test Item Value Reference Range Comments LIPASE (test code=LIP) 15 UNITS/L 23-300 [id number] 21:35:00 Test Item Value Reference Range Comments MAGNESIUM (test code=MAG) 1.6 MG/DL 1.6-2.3 HEPATIC FUNCTION [id number] 21:34:00 Test Item Value Reference Range Comments TOTAL PROTEIN (test code=PROT) 5.1 G/DL 6.2-7.6 ALBUMIN (test code=ALB) 2.9 G/DL 3.5-5.0 BILIRUBIN TOTAL (test code=BILT) 2.0 MG/DL 0.2-1.3 BILIRUBIN DIRECT (test code=BILD) 0.1 MG/DL 0.0-0.3 SGOT/AST (test code=AST) 37 UNITS/L 17-59 SGPT/ALT (test code=ALT) UNITS/L <50 ALKALINE PHOSPHATASE (test code=ALKP) UNITS/L 38-126 [id number] 21:34:00 Test Item Value Reference Range Comments LIPASE (test code=LIP) UNITS/L 23-300 [id number] 21:34:00 Test Item Value Reference Range Comments MAGNESIUM (test code=MAG) MG/DL 1.6-2.3 HEPATIC FUNCTION [id number] 21:31:00 Test Item Value Reference Range Comments TOTAL PROTEIN (test code=PROT) G/DL 6.2-7.6 ALBUMIN (test code=ALB) 2.9 G/DL 3.5-5.0 BILIRUBIN TOTAL (test code=BILT) MG/DL 0.2-1.3 BILIRUBIN DIRECT (test code=BILD) MG/DL 0.0-0.3 SGOT/AST (test code=AST) UNITS/L 15-37 SGPT/ALT (test code=ALT) UNITS/L <50 ALKALINE PHOSPHATASE (test code=ALKP) UNITS/L 38-126 [id number] 21:31:00 Test Item Value Reference Range Comments LIPASE (test code=LIP) UNITS/L 23-300 [id number] 21:31:00 Test Item Value Reference Range Comments MAGNESIUM (test code=MAG) MG/DL 1.6-2.3 CARMENZA,[id number] 11:31:00 RUN DATE: 03/27/18 [facility] - Lab PAGE 1 RUN TIME: 1131 Specimen Inquiry RUN USER: INTERFACE PATIENT: SOLO REARDON LOC: MICHELLE U #: [id number] AGE/SX: 72/M ROOM: [facility] RE03/24/18[facility] DR: Matthias Roth MD : 49 BED: A DIS: STATUS: ADM IN TLOC: SPEC #: [id number] RECD: 03/24/18 STATUS: SUNDEEP REQ #: [id number] ROMAN: 03/24/[address] [facility] [address]: Matthias Roth MD ENTERED: 03/24/18 SP TYPE: ARTERY, PL OTHR DR: Miguel Smith MD ORDERED: DECAL, SURG PATH LVL 3, SURG PATH LVL 4 CODES: [id number] - ARTERY, NOS [id number] - CAROTID ARTERY PLAQUE, NOS [id number] - CAROTID ARTERY ATHEROSCLEROSIS [id number] - LYMPH NODE, NOS [id number] - LYMPH NODE, NOS NORMAL TISSUE COPIES TO: Miguel Smith MD [address] [place] [address] [address] [place] [address] [email or web address] [place] [address] [facility] [place] [address] ICD CODES: 440 - V71.9 - PROCEDURES: DECAL (03/26/18-1313) SURG PATH LVL 3 () SURG PATH LVL 4 (11/23/18-1525) TISSUES: A. ARTERY, NOS - RT CAROTID PLAQUE B. LYMPH NODE, NOS - RT CERVICAL LYMPH NODE CLINICAL HISTORY RIGHT INTERNAL CAROTID ARTERY STENOSIS CPT CODES CPT CODE(S): 62792 , 88028 , 69313 , , , , CONTINUED ON NEXT PAGE RUN DATE: 03/27/18 [facility] PAGE 2 RUN TIME: 1131 Specimen Inquiry RUN USER: INTERFACE SPEC #: [id number] PATIENT: SOLO REARDON #[id number] (Continued) FINAL DIAGNOSIS A. Right carotid artery, atherectomy: FIBROUS ATHEROSCLEROTIC PLAQUE WITH CALCIFICATIONS B. Lymph nodes, right cervical, excision: THREE BENIGN LYMPH NODES GROSS DESCRIPTION A. Right carotidplaque. Received is a segment of yellow- pedraza heavily calcified plaque, measuring 3.7 x 1.2 x 1 cm. Sections submitted for brief decalcification as A1. B. Right cervical lymph node. Received are three nodes, matted together by adipose tissue. They measure 0.8 -1.3 cm. The two smaller nodes are sectioned and submitted as B1 (one inked) , the larger node is serially sectioned and submitted as B2. /tc/nr MICROSCOPIC DESCRIPTION A. Right carotid plaque. The fibrous atherosclerotic plaque contains calcifications. B. Right cervical lymph node. The three lymph nodes are unremarkable. Signed SIGNATURE ON FILE Elvis Rainey Jerry 03/27/18 1131 ---- -------- END OF REPORT
[2019-04-16] MEDS ORDERED: NA CHLORIDE 0.9% 1,000 ML ONE ×2 (16:17→18:25)
--- NOTE | 2019-04-16 16:41 | RAD REPORT ---
[facility] DES[facility] 4:30 pm CLINICAL HISTORY: cough COMPARISON: November 2017 FINDINGS: Patchy bilateral pulmonary opacities are noted. The patient has known small bilateral daniel g lesions. Small left pleural effusion suspected Heart is normal size IMPRESSION: Patchy bilateral pulmonary opacities left greater than right probably indicating pneumon ia
[2019-04-16 16:42] LABS: Absolute Lymphocytes (CBC) 0.7 K/uL (0.7-4.9); Basophils % 0.8 % (0-1.3); Hematocrit 32.2 % (39.6-49.0); Lymphocytes % 10.5 % (15.3-44.8); MPV 7.7 fL (7.6-11.3); RBC Red Blood Cell Count 3.18 M/uL (4.33-5.43)
[2019-04-16 16:43] LABS: Protime INR 1.22
--- NOTE | 2019-04-16 17:01 | ER ---
Nurse's Notes [facility] Name: Juan Carlos Trevino Age: 73 yrs Sex: Male : 1945 Arrival Date: 04/16/2019 Time: 15:42 Bed 17 Private MD: out of town, doctor Diagnosis: Weakness;Pneumonia due to other specified bacteria-bilateral left greater than right;Chronic obstructive pulmonary disease with (acute) exacerbation;Dysphagia;Unspecified kidney failure;Hyperkalemia;Anemia, unspecified Presentation: 04/16 15:49 Presenting complaint: Worsening generalized weakness x 3-4 days. Pt reports he was hb hospitalized x 1 month with pneumonia, discharged 1 week ago. Transition of care: patient was not received from another setting of care. 15:49 Method Of Arrival: Wheelchair hb 15:50 Acuity: ASHWINI 3 hb 15:50 Onset of symptoms was April 13, 2019. Risk Assessment: Do you want to hurt yourself hb or someone else? Patient reports no desire to harm self or others. Care prior to arrival: None. 19:15 Initial Sepsis Screen: Does the patient meet any 2 criteria? HR > 90 bpm. Does the wh patient have a suspected source of infection? Yes: Productive cough/pneumonia. Historical: - Allergies: 15:52 No Known Allergies; hb - PMHx: 15:52 4LNC Home O2; hb 15:53 Pancreatic CA; COPD; Prostate CA; hb - PSHx: 15:53 Carotid surgery; Appendectomy; hb - Immunization history:: Adult Immunizations up to date. - Social history:: Smoking status: Patient/guardian denies using tobacco. - Ebola Screening: : No symptoms or risks identified at this time. Screenin:05 Abuse screen: Denies threats or abuse. Denies injuries from another. Nutritional ca1 screening: No deficits noted. Tuberculosis screening: No symptoms or risk factors identified. Fall Risk Fall in past 12 months (25 points). Secondary diagnosis (15 points) impaired mobility, IV access (20 points). Ambulatory Aid- Furniture (30 pts.). Gait- Impaired (20 pts.). Total Vargas Fall Scale indicates High Risk Score (45 or more points). Fall prevention measures have been instituted. Side Rails Up X 2 Frequent Obs/Assessments Occuring Family Present and informed to notify staff if the need to leave the bedside As available patient and family educated on Fall Prevention Program and Strategies. Assessment: 16:05 General: Appears in no apparent distress. comfortable, ill, Behavior is calm, ca1 cooperative, appropriate for age. General: Reports feeling ill for > 3 days, fatigue for >3 days. Pain: Denies pain. Neuro: Level of Consciousness is awake, alert, obeys commands, Oriented to person, place, time, situation, Appropriate for age [employer] are equal bilaterally Moves all extremities. Speech is normal, Facial symmetry appears normal. Cardiovascular: Heart tones S1 S2 present Capillary refill < 3 seconds Patient's skin is warm and dry. Pulses are all present. Respiratory: Airway is patent. GI: Abdomen is round non-distended, Bowel sounds present X 4 quads. Abd is soft and non tender X 4 quads. : No signs and/or symptoms were reported regarding the genitourinary system. EENT: Reports difficulty swallowing since over a month ago. "Like there's a lump and food is stuck in my throat", as pt stated. Derm: Skin is fragile, is thin, with poor turgor Skin is pink, warm \\T\\ dry. Musculoskeletal: Circulation, motion, and sensation intact. Capillary refill < 3 seconds. 16:58 Reassessment: Patient appears in no apparent distress at this time. No changes from [facility] previously documented assessment. Family at bedside. 17:50 Reassessment: lactate 4.0, primary nurse and provider notified, received new medication em orders. 19:08 Reassessment: Patient appears in no apparent distress at this time. Patient and/or family updated on plan of care and expected duration. Pain level reassessed. Patient is alert, oriented x 3, equal unlabored respirations, skin warm/dry/pink. Dr Ortez at beside explaining POC need for admit. 20:28 Reassessment: Patient appears in no apparent distress at this time. No changes from previously documented assessment. Patient and/or family updated on plan of care and expected duration. Pain level reassessed. Patient is alert, oriented x 3, equal unlabored respirations, skin warm/dry/pink. Vital Signs: 15:50 BP 147 / 87; Pulse 104; Resp 20; Temp 97.8; Pulse Ox 97% on 4 lpm NC; Weight 63.5 kg; hb Height 5 ft. 11 in. (180.34 cm); Pain 8/10; 17:20 BP 129 / 82; Pulse 77; Resp 18 S; Pulse Ox 100% on 4 lpm NC; ca1 19:08 BP 141 / 90; Pulse 77; Resp 18; Pulse Ox 99% 4 lpm ; wh 20:28 BP 135 / 92; Pulse 83; Resp 18; Pulse Ox 100% 4 lpm ; wh 15:50 Body Mass Index 19.53 (63.50 kg, 180.34 cm) hb ED Course: 15:42 Patient arrived in ED. mr 15:42 out of town, doctor is Private Physician. mr 15:52 Arm band placed on. hb 15:55 Triage completed. 15:59 Orestes Saldaña MD is Attending Physician. [facility] 16:03 Charleen San, RN is Primary Nurse. ca1 16:05 Patient has correct armband on for positive identification. Placed in gown. Bed in low ca1 position. Call light in reach. Side rails up X2. air sampling and monitoring on. Pulse ox on. NIBP on. Warm blanket given. 16:32 No provider procedures requiring assistance completed. Inserted saline lock: 20 gauge ca1 in right antecubital area, using aseptic technique. Blood collected. 16:32 Initial lab(s) drawn, by me, sent to lab. First set of blood cultures drawn by me. [facility] 16:58 Stephen Ortez is Hospitalizing Provider. [facility] 17:08 EKG done, by ED staff, reviewed by Orestes Saldaña MD. 3 20:29 Patient admitted, IV remains in place. Administered Medications: 16:35 Drug: NS 0.9% 500 ml Route: IV; Rate: bolus; Site: right antecubital; ca1 17:03 Follow up: Response: No adverse reaction; IV Status: Completed infusion; IV Intake: ca1 500ml 17:05 Drug: NS 0.9% 1000 ml Route: IV; Rate: 125 ml/hr; Site: right antecubital; ca1 19:10 Follow up: Response: No adverse reaction; IV Status: Infusion continued upon admission 17:31 Drug: Zosyn 3.375 grams Route: IVPB; Infused Over: 60 mins; Site: right antecubital; ca1 19:09 Follow up: Response: No adverse reaction; IV Status: Completed infusion 17:55 Drug: NS 0.9% 1000 ml Route: IV; Rate: 1 bolus; Site: right antecubital; ca1 19:09 Follow up: Response: No adverse reaction; IV Status: Completed infusion 18:02 Drug: Kayexalate 30 grams Route: PO; ca1 19:09 Follow up: Response: No adverse reaction Intake: 17:03 IV: 500ml; Total: 500ml. ca1 Outcome: 17:01 Decision to Hospitalize by Provider. [facility] 20:29 Admitted to Med/surg accompanied by tech, family with patient, via stretcher, room 205, with chart, Report called to Marcio Ruff RN 20:29 Condition: stable 20:29 Instructed on the need for admit. 20:33 Patient left the ED. Signatures: Orestes Saldaña MD MD cha Rivera, Kendra mr Simone, Immanuel, [employer] DEAN [employer] DEAN em Milagros Szymanski, RN RN Felipe, Ana 3 Nura Trujillo Charleen San RN RN ca1 Corrections: (The following items were deleted from the chart) 15:55 15:49 Presenting complaint: Worsening generalized weakness x 3-4 days. hb hb 20:28 19:08 BP 141 / 90; Pulse 77bpm; Resp 18bpm; Pulse Ox 99%; [facility]
[2019-04-16 17:02] LABS: ALT/SGPT 32 U/L (12-78); AST/SGOT 45 U/L (15-37); Albumin 2.2 g/dL (3.4-5.0); Alkaline Phosphatase 227 U/L (45-117); BUN Blood Urea Nitrogen 32 mg/dL (7-18); Bicarbonate 23 mmol/L (21-32); Bilirubin Direct 0.6 mg/dL (0-0.2); Bilirubin Total 1.1 mg/dL (0.2-1.0); Glucose Level 84 mg/dL (74-106); Lipase 51 U/L (73-393); Magnesium 1.9 mg/dL (1.8-2.4); NT PRO-BNP 7416 pg/mL (<125); Potassium 5.2 mmol/L (3.5-5.1); Protein, Total 4.8 g/dL (6.4-8.2); Sodium Level 135 mmol/L (136-145); Troponin (Emerg Dept Use Only) < 0.02 ng/mL (0.0-0.045)
--- NOTE | 2019-04-16 17:02 | EDPHYS ---
Physician Documentation [facility] Name: Juan Carlos Trevino Age: 73 yrs Sex: Male : 1945 Arrival Date: 04/16/2019 Time: 15:42 Bed 17 Private MD: out of town, doctor ED Physician Orestes Saldaña HPI: 04/16 16:54 This 73 yrs old Male presents to ER via Wheelchair with complaints of dayana Weakness. Historical: - Allergies: 15:52 No Known Allergies; hb - PMHx: 15:52 4LNC Home O2; hb 15:53 Pancreatic CA; COPD; Prostate CA; hb - PSHx: 15:53 Carotid surgery; Appendectomy; hb - Immunization history:: Adult Immunizations up to date. - Social history:: Smoking status: Patient/guardian denies using tobacco. - Ebola Screening: : No symptoms or risks identified at this time. ROS: 16:54 Constitutional: Negative for fever, chills, and weight loss, Eyes: Negative for injury, dayana pain, redness, and discharge, ENT: Negative for injury, pain, and discharge, Neck: Negative for injury, pain, and swelling, Cardiovascular: Negative for chest pain, palpitations, and edema, Back: Negative for injury and pain, : Negative for injury, bleeding, discharge, and swelling, MS/Extremity: Negative for injury and deformity, Skin: Negative for injury, rash, and discoloration, Psych: Negative for depression, anxiety, suicide ideation, homicidal ideation, and hallucinations, Allergy/Immunology: Negative for hives, rash, and allergies, Endocrine: Negative for neck swelling, polydipsia, polyuria, polyphagia, and marked weight changes. 16:54 Respiratory: Positive for shortness of breath, at rest. 16:54 Abdomen/GI: Positive for dysphagia. 16:54 Skin: Positive for pallor. 16:54 Neuro: Positive for weakness. Exam: 16:54 Constitutional: This is a well developed, well nourished patient who is awake, alert, dayana and in no acute distress. Head/Face: Normocephalic, atraumatic. Eyes: Pupils equal round and reactive to light, extra-ocular motions intact. Lids and lashes normal. Conjunctiva and sclera are non-icteric and not injected. Cornea within normal limits. Periorbital areas with no swelling, redness, or edema. ENT: Nares patent. No nasal discharge, no septal abnormalities noted. Tympanic membranes are normal and external auditory canals are clear. Oropharynx with no redness, swelling, or masses, exudates, or evidence of obstruction, uvula midline. Mucous membranes moist. Neck: Trachea midline, no thyromegaly or masses palpated, and no cervical lymphadenopathy. Supple, full range of motion without nuchal rigidity, or vertebral point tenderness. No Meningismus. Chest/axilla: Normal chest wall appearance and motion. Nontender with no deformity. No lesions are appreciated. Respiratory: Lungs have equal breath sounds bilaterally, clear to auscultation and percussion. No rales, rhonchi or wheezes noted. No increased work of breathing, no retractions or nasal flaring. Abdomen/GI: Soft, non-tender, with normal bowel sounds. No distension or tympany. No guarding or rebound. No evidence of tenderness throughout. Back: No spinal tenderness. No costovertebral tenderness. Full range of motion. Male : Normal genitalia with no discharge or lesions. MS/ Extremity: Pulses equal, no cyanosis. Neurovascular intact. Full, normal range of motion. Neuro: Awake and alert, GCS 15, oriented to person, place, time, and situation. Cranial nerves II-XII grossly intact. Motor strength 5/5 in all extremities. Sensory grossly intact. Cerebellar exam normal. Normal gait. Psych: Awake, alert, with orientation to person, place and time. Behavior, mood, and affect are within normal limits. 16:54 Cardiovascular: Rate: tachycardic, Rhythm: regular, Pulses: no pulse deficits are appreciated, Heart sounds: normal, Edema: is not appreciated, JVD: is not appreciated. Vital Signs: 15:50 BP 147 / 87; Pulse 104; Resp 20; Temp 97.8; Pulse Ox 97% on 4 lpm NC; Weight 63.5 kg; hb Height 5 ft. 11 in. (180.34 cm); Pain 8/10; 17:20 BP 129 / 82; Pulse 77; Resp 18 S; Pulse Ox 100% on 4 lpm NC; ca1 19:08 BP 141 / 90; Pulse 77; Resp 18; Pulse Ox 99% 4 lpm ; wh 20:28 BP 135 / 92; Pulse 83; Resp 18; Pulse Ox 100% 4 lpm ; wh 15:50 Body Mass Index 19.53 (63.50 kg, 180.34 cm) hb MDM: 15:59 Patient medically screened. [facility] 16:56 Data reviewed: vital signs, nurses notes, lab test result(s), EKG, radiologic studies, [facility] CT scan, plain films. 04/16 16:05 Order name: Basic Metabolic Panel [facility] 04/16 16:05 Order name: CBC with Diff [facility] 04/16 16:05 Order name: LFT's [facility] 04/16 16:05 Order name: Magnesium [facility] 04/16 16:05 Order name: NT PRO-BNP [facility] 04/16 16:05 Order name: PT-INR [facility] 04/16 16:05 Order name: Troponin (emerg Dept Use Only) [facility] 04/16 16:05 Order name: Urine Culture [facility] 04/16 16:05 Order name: Lipase [facility] 04/16 16:05 Order name: Blood Culture Adult (2) [facility] 04/16 16:05 Order name: Lactate [facility] 04/16 16:44 Order name: CBC with Automated Diff; Complete Time: 16:56 EDSD 04/16 16:46 Order name: Protime (+INR); Complete Time: 16:56 EDMS 04/16 16:51 Order name: Glucose, Ancillary Testing; Complete Time: 16:56 EDMS 04/16 16:05 Order name: XRAY Chest (1 view) [facility] 04/16 16:05 Order name: EKG; Complete Time: 16:08 [facility] 04/16 16:05 Order name: Cardiac monitoring; Complete Time: 16:53 [facility] 04/16 16:44 Order name: RAD; Complete Time: 16:56 EDSD 04/16 17:46 Order name: Basic Metabolic Panel; Complete Time: 17:47 EDMS 04/16 17:46 Order name: Liver (Hepatic) Function; Complete Time: 17:47 EDMS 04/16 17:46 Order name: Troponin (Emerg Dept Use Only); Complete Time: 17:47 EDMS 04/16 17:46 Order name: NT PRO-BNP; Complete Time: 17:47 EDMS 04/16 17:46 Order name: Magnesium; Complete Time: 17:47 EDMS 04/16 17:46 Order name: Lipase; Complete Time: 17:47 EDMS 04/16 17:47 Order name: Lactate; Complete Time: 17:48 [facility] 04/16 16:05 Order name: EKG - Nurse/Tech; Complete Time: 17:13 [facility] 04/16 16:05 Order name: IV Saline Lock; Complete Time: 16:53 [facility] 04/16 16:05 Order name: Labs collected and sent; Complete Time: 16:53 [facility] 04/16 16:05 Order name: O2 Per Protocol; Complete Time: 16:53 [facility] 04/16 16:05 Order name: O2 Sat Monitoring; Complete Time: 16:53 [facility] Administered Medications: 16:35 Drug: NS 0.9% 500 ml Route: IV; Rate: bolus; Site: right antecubital; ca1 17:03 Follow up: Response: No adverse reaction; IV Status: Completed infusion; IV Intake: ca1 500ml 17:05 Drug: NS 0.9% 1000 ml Route: IV; Rate: 125 ml/hr; Site: right antecubital; ca1 19:10 Follow up: Response: No adverse reaction; IV Status: Infusion continued upon admission 17:31 Drug: Zosyn 3.375 grams Route: IVPB; Infused Over: 60 mins; Site: right antecubital; ca1 19:09 Follow up: Response: No adverse reaction; IV Status: Completed infusion 17:55 Drug: NS 0.9% 1000 ml Route: IV; Rate: 1 bolus; Site: right antecubital; ca1 19:09 Follow up: Response: No adverse reaction; IV Status: Completed infusion 18:02 Drug: Kayexalate 30 grams Route: PO; ca1 19:09 Follow up: Response: No adverse reaction Disposition: 04/16/19 17:01 Hospitalization ordered by Stephen Ortez for Inpatient Admission. Preliminary diagnosis are Weakness, Pneumonia due to other specified bacteria - bilateral left greater than right, Chronic obstructive pulmonary disease with (acute) exacerbation, Dysphagia, Unspecified kidney failure, Hyperkalemia, Anemia, unspecified. - Bed requested for Telemetry/MedSurg (Inpatient). - Status is Inpatient Admission. - Condition is Fair. - Problem is new. - Symptoms have improved. UTI on Admission? No Signatures: Dispatcher [employer] EDSD Orestes Saldaña MD MD cha Garcia, Cindy, RN RN Milagros Szymanski RN RN hb Habalo, Winsy Charleen San RN RN ca1 Corrections: (The following items were deleted from the chart) 17:54 17:01 Hospitalization Ordered by Stephen Ortez for Inpatient Admission. Preliminary [facility] diagnosis is Weakness; Pneumonia due to other specified bacteria - bilateral left greater than right; Chronic obstructive pulmonary disease with (acute) exacerbation; Dysphagia. Bed requested for Telemetry/MedSurg (Inpatient). Status is Inpatient Admission. Condition is Fair. Problem is new. Symptoms have improved. UTI on Admission? No. [facility] 19:43 17:54 04/16/2019 17:01 Hospitalization Ordered by Stephen Ortez for Inpatient Admission. Preliminary diagnosis is Weakness; Pneumonia due to other specified bacteria - bilateral left greater than right; Chronic obstructive pulmonary disease with (acute) exacerbation; Dysphagia; Unspecified kidney failure; Hyperkalemia; Anemia, unspecified. Bed requested for Telemetry/MedSurg (Inpatient). Status is Inpatient Admission. Condition is Fair. Problem is new. Symptoms have improved. UTI on Admission? No. [facility] 20:33 19:43 04/16/2019 17:01 Hospitalization Ordered by Stephen Ortez for Inpatient Admission. Preliminary diagnosis is Weakness; Pneumonia due to other specified bacteria - bilateral left greater than right; Chronic obstructive pulmonary disease with (acute) exacerbation; Dysphagia; Unspecified kidney failure; Hyperkalemia; Anemia, unspecified. Bed requested for Telemetry/MedSurg (Inpatient). Status is Inpatient Admission. Condition is Fair. Problem is new. Symptoms have improved. UTI on Admission? No. cg
[2019-04-16] MEDS ORDERED: PIPER/TAZO/NS 3.375gm 0 GM/0 ML BAG ONE (17:15)
[2019-04-16] MEDS ORDERED: PIPER/TAZO/NS 3.375gm 3.375 GM/100 ML BAG ONE (17:19)
[2019-04-16] MEDS ORDERED: SOD POLYSTYREN SUL 15 GM/60 ML UCUP ONE (18:00)
--- NOTE | 2019-04-16 19:14 | P.HP ---
Certification for Inpatient Patient admitted to: Inpatient With expected LOS: >2 Midnights Practitioner: I am a practitioner with admitting privileges, knowledge of patient current condition, hospital course, and medical plan of care. Services: Services provided to patient in accordance with Admission requirements found in Title 42 Section 412.3 of the Code of Federal Regulations Patient History Date of Service: 04/16/19 Reason for admission: Generalized weakness, inability to swallow. History of Present Illness: 73-year-old gentleman with a history of COPD, chronic respiratory failure on home oxygen-4L by CT, pancreatic cancer was recently admitted at [facility] and treated for pneumonia and subsequently discharged to [facility] to continue IV antibiotics and rehab. He spent about 3 weeks in LTAC and was discharged about 1 week ago. The patient was getting chemo for pancreatic cancer prior to the hospitalization. He also has a spots and nodules in his lungs which are suspected to be malignant but the patient refused lung biopsy in the past. He presented to the ED complaining of inability to swallow both solids and liquids. He reports good appetite but just cant swallow. He reports losing considerable amount of weight along with progressive weakness. He also reports persistent cough productive of greenish and brown sputum. Family stated the patient was diagnosed with ESBL sputum infection at [facility]. Chest x-ray in the ED demonstrated multiple patchy opacities in both lungs. He has SALLIE. Elevated lactic acid and anemia. No leukocytosis. Patient is admitted for further management suspected aspiration pneumonia. Allergies No Known Allergies Allergy (Verified 04/16/19 21:08) Home Medications: Amiodarone HCl [Cordarone*] 200 mg PO BID 04/16/19 Budesonide [Pulmicort Flexhaler] 1 puff IH BID 04/16/19 Cyclobenzaprine HCl [Flexeril] 5 mg PO BEDTIME 04/16/19 Furosemide 20 mg PO BID 04/16/19 Hydrocodone Bit/Acetaminophen [Hydrocodon-Acetaminoph 7.5-325] 1 tab PO Q6HP PRN 04/16/19 Metformin HCl 1,000 mg PO BID 04/16/19 Potassium Chloride 20 meq PO BID 04/16/19 Tiotropium [place] [Spiriva Respimat] 1 puff IH BID 04/16/19 PIPER/TAZO/NS 3.375gm [Zosyn 3.375 gm/100 ml Ns Ivpb] 3.375 gm IV Q8H #39 bag - Past Medical/Surgical History Diabetic: Yes -: COPD -: Atrial fibrillation -: Pancreatic cancer -: Lung nodules -: Diabetes -: Carotid surgery -: Appendectomy - Family History Mother -: Diabetes - Social History Smoking Status: Former smoker Alcohol use: No CD- Drugs: No Place of Residence: Home Review of Systems Other: General: No fever, no malaise. Eyes: No eye discharge, CVS: No chest pain, no palpitation. GI: No abdominal pain, no nausea no vomit, no constipation. He reports recent diarrhea. Genitourinary: No dysuria, no urinary frequency, no incontinence, no hematuria. Musculoskeletal: No joint pains, or joint swelling. Neurology: No headache, no asymmetric weakness. Except as documented, all other systems reviewed and negative. Physical Examination - Physical Exam General: Alert, In no apparent distress, Oriented x3 HEENT: Atraumatic, Normocephalic, PERRLA, Mucous membr. moist/pink, Sclerae nonicteric Neck: Supple, JVD not distended Respiratory: Crackles/rales (Bilateral), Expiratory wheezes (Mild scattered wheezes) Cardiovascular: No edema, Normal S1 S2, Irregular heart rate/rhythm Gastrointestinal: Normal bowel sounds, Soft and benign, No tenderness Musculoskeletal: No swelling Integumentary: No rashes Neurological: Normal speech, Normal strength at 5/5 x4 extr - Studies Laboratory Data (last 24 hrs) 04/16/19 16:32: PT 14.3 H, INR 1.22 04/16/19 16:32: WBC 6.4, Hgb 10.8 L, Hct 32.2 L, Plt Count 119 L 04/16/19 16:32: Sodium 135 L, Potassium 5.2 H, BUN 32 H, Creatinine 2.06 H, Glucose 84, Magnesium 1.9, Total Bilirubin 1.1 H, AST 45 H, ALT 32, Alkaline Phosphatase 227 H, Lipase 51 L Assessment and Plan - Problems (Diagnosis) (1) Aspiration pneumonia Current Visit: Yes Status: Acute (2) Acute renal failure Current Visit: Yes Status: Acute (3) Moderate protein-calorie malnutrition Current Visit: Yes Status: Acute (4) Pancreatic cancer Current Visit: Yes Status: Acute (5) Pulmonary nodules Current Visit: Yes Status: Acute (6) Anemia Current Visit: Yes Status: Acute (7) Atrial fibrillation Current Visit: Yes Status: Chronic - Plan Admit to [facility] Patient has a history of ESBL in his sputum. Will treat aspiration pneumonia with Levaquin and meropenem. Scheduled bronchodilators, chest physiotherapy. Titrate oxygen Consult to speech therapy for swallowing evaluations. Keep NPO today until swallow evaluation. IV hydration with D5 normal saline. Monitor renal panel. Follow cultures. Elevated lactic acid likely secondary to dehydration. Insulin sliding scale for glucose management. Hold metformin. - Advance Directives Does patient have a Living Will: No Does patient have a Durable POA for Healthcare: No
[2019-04-16] MEDS: ALBUTEROL 2.5 MG/3 ML NEB SOL NEB SCH (20:18)
[2019-04-16] MEDS: IPRATROPIUM BROM 0.5MG/2.5ML NEB SCH (20:18)
[2019-04-16] MEDS ORDERED: ACETAMINOPHEN 500 MG TAB PO PRN (20:18)
[2019-04-16] MEDS ORDERED: ONDANSETRON 4 MG/2 ML VIAL IV PRN (20:18)
[2019-04-16 20:54] VITALS: BMI 18.2
[2019-04-16] MEDS ORDERED: INSULIN -REGULAR HUMAN 50 UNIT/0.5 ML ML SQ SCH (21:00)
[2019-04-16] MEDS: D5 0.9 NS 1,000 ML IV SCH (21:38)
[2019-04-16] MEDS ORDERED: Levofloxacin 750mg IV 750 MG/150 ML BAG IV SCH (22:00)
[2019-04-16] MEDS: ENOXAPARIN 30 MG/0.3 ML SQ SCH (22:04)
[2019-04-16 23:16] LABS: Urine Appearance CLEAR; Urine Bilirubin NEGATIVE (NEG); Urine Blood NEGATIVE (NEG); Urine Color YELLOW; Urine Glucose NEGATIVE (NEG); Urine Protein TRACE (NEG); Urine Specific Gravity 1.015 (1.005-1.030); Urine Urobilinogen 0.2 mg/dL (0.2-1.0); Urine pH 5.5 (5.0-7.0)
[2019-04-16 23:18] LABS: Urine Microscopic Reflex ORDER UMIC
[2019-04-17 00:26] LABS: Urine Bacteria 20-50 /HPF (NONE SEEN); Urine Culture Reflex Order NOT NEEDED; Urine RBC <5 /HPF (NONE SEEN)
[2019-04-17] MEDS ORDERED: Meropenem 500 MG/100 ML BAG ONE (00:44)
[2019-04-17] MEDS ORDERED: Meropenem 1000 MG/VIAL IV SCH (01:00)
[2019-04-17] MEDS: Meropenem 500 MG in NA CHLORIDE 0.9% 100 ML IV SCH ×3 (01:10→17:33)
[2019-04-17] MEDS: FENTANYL CITR 100 MCG/2 ML IV PRN ×3 (01:24→20:57)
[2019-04-17] MEDS: ALBUTEROL 2.5 MG/3 ML NEB SOL NEB SCH ×4 (02:00→20:00)
[2019-04-17] MEDS: IPRATROPIUM BROM 0.5MG/2.5ML NEB SCH ×7 (04:00→23:10)
[2019-04-17] MEDS: INSULIN -REGULAR HUMAN 50 UNIT/0.5 ML ML SQ SCH ×5 (05:49→20:47)
[2019-04-17 06:29] LABS: Absolute Lymphocytes (CBC) 0.8 K/uL (0.7-4.9); Hematocrit 26.5 % (39.6-49.0); Lymphocytes % 14.4 % (15.3-44.8); MPV 9.3 fL (7.6-11.3); RBC Red Blood Cell Count 2.57 M/uL (4.33-5.43)
--- NOTE | 2019-04-17 06:54 | EKG ---
Test Date: 2019-04-16 Test Time: 17:08:19 Scrap Collector: OSMEL MEASUREMENT RESULTS: Intervals: Rate: 78 NH: 188 QRSD: 130 QT: 398 QTc: 453 Elma: P: 45 NH: 188 QRS: 121 T: 63 INTERPRETIVE STATEMENTS: Normal sinus rhythm Right bundle branch block Septal infarct, age undetermined Abnormal ECG No previous ECG available for comparison Electronically Signed On 04-17-19 06:53:48 FIELD SERVICE ENGINEER by Venkat Muro
[2019-04-17 07:44] LABS: Phosphorus 3.5 mg/dL (2.5-4.9); Potassium 4.2 mmol/L (3.5-5.1); Thyroid Stimulating Hormone 2.44 uIU/mL (0.360-3.740)
[2019-04-17 09:29] LABS: Blood Morphology Comment NOT SEEN (NOT SEEN); Platelet Estimate DECR
--- NOTE | 2019-04-17 12:08 | RAD REPORT ---
EXAM DESCRIPTION: RAD - Barium Swallow Modified - 04/17/2019 11:43 am CLINICAL HISTORY: Coughing and choking/pneumonia/dysphagia FINDINGS: Laryngeal penetration: Cleared with pudding coated natalie cracker Pharyngeal residue: Vallecular mild with all consistencies. Pyriform - mild to moderate with all con sistencies, 2' retropulsion from UES osteophytes c3-c4 SIGNIFICANT prominence of Cricopharyngeus at C5-C6 decreasing pharyngeal space and decreasing amount of bolus to pass into esophagus. Mild to moderate esophageal stasis. Fluoro time: 3:36 min thirteen fluoroscopic spot images obtained
--- NOTE | 2019-04-17 12:57 | P.PN ---
Subjective Date of Service: 04/17/19 Chief Complaint: Generalized weakness, inability to swallow. Subjective: No new changes No major changes from yesterday. The patient has been afebrile. He denies any chest pain or shortness of breath. He is still coughing. He was kept NPO overnight and has been asking to drink water. Physical Examination - Vital Signs Temperature: 98.6 F Blood Pressure: 136/75 Pulse: 77 Respirations: 18 Pulse Ox (%): 96 - Physical Exam General: Alert, In no apparent distress, Oriented x3, Cachectic HEENT: Mucous membr. moist/pink Neck: No Thyromegaly Respiratory: Clear to auscultation bilaterally, Normal air movement Cardiovascular: Regular rate/rhythm, Normal S1 S2 Gastrointestinal: Soft and benign, Non-distended, No tenderness Musculoskeletal: No swelling Neurological: Normal speech, Normal strength at 5/5 x4 extr - Studies Laboratory Data (last 24 hrs) 04/16/19 16:32: PT 14.3 H, INR 1.22 04/16/19 16:32: WBC 6.4, Hgb 10.8 L, Hct 32.2 L, Plt Count 119 L 04/16/19 16:32: Sodium 135 L, Potassium 5.2 H, BUN 32 H, Creatinine 2.06 H, Glucose 84, Magnesium 1.9, Total Bilirubin 1.1 H, AST 45 H, ALT 32, Alkaline Phosphatase 227 H, Lipase 51 L Assessment And Plan - Current Problems (Diagnosis) (1) Aspiration pneumonia Current Visit: Yes Status: Acute (2) Acute renal failure Current Visit: Yes Status: Acute (3) Moderate protein-calorie malnutrition Current Visit: Yes Status: Acute (4) Pancreatic cancer Current Visit: Yes Status: Acute (5) Pulmonary nodules Current Visit: Yes Status: Acute (6) Anemia Current Visit: Yes Status: Acute (7) Atrial fibrillation Current Visit: Yes Status: Acute - Plan Continue IV meropenem given history of ESBL in the sputum Continue Scheduled bronchodilators, chest physiotherapy. Titrate oxygen Speech therapy evaluation and MBS result reviewed. Patient noted to have prominent cricopharyngeus, decreasing pharyngeal space and decreasing amount of bolus to pass into esophagus. ENT consult requested. Mechanical soft and thin liquid as recommended by speech and swallow Serum creatinine is improving slow Continue IV hydration with D5 normal saline. Follow cultures. Insulin sliding scale for glucose management. Hold metformin.
[2019-04-17] MEDS: D5 0.9 NS 1,000 ML IV SCH ×2 (13:55→22:58)
[2019-04-17] MEDS ORDERED: D50W 25 GM/50 ML SYRINGE/VIAL IV PRN (20:34)
[2019-04-17] MEDS ORDERED: GLUCAGON 1 MG/VIAL IM PRN (20:34)
--- NOTE | 2019-04-17 20:37 | RAD REPORT ---
EXAM DESCRIPTION: CT - Abdomen Pelvis Wo Contrast - 04/17/2019 8:24 pm CLINICAL HISTORY: Abdominal pain and distension COMPARISON: CT ABD PELVIS W WO CONTRAST dated 06/23/2013; Barium Swallow Modified dated 04/17/2019 TECHNIQUE: Axial [address] imaging of the abdomen and pelvis was performed without IV contrast. No IV contrast was given because of allergy, abnormal renal function, patient refusal or physician re quest. No oral contrast All CT scans are performed using dose optimization technique as appropriate and may include automated exposure control or mA/KV adjustment according to patient size. FINDINGS: Small right-side and moderate left-side pleural effusions incompletely evaluated. Bilatera l lower lobe atelectasis present. No cardiomegaly or pericardial effusion. Liver has a nodular capsular contour and is small in size. No focal liver lesions identifiable. No sp lenomegaly or suspicious splenic finding. No acute pancreatic process suspected. Gallbladder is not d ilated. Gallbladder is isodense to the ascites that is present. No biliary tree dilatation. Left renal pelvic dilatation is present without obstructing calculus. And nonobstructing 7 mm calculu s is present in the upper pole. No ureteral calculi seen. No right-sided hydronephrosis. No signific ant adrenal finding. Isodense renal masses and pyelonephritis cannot be excluded in the absence of IV contrast. Urinary bladder is mostly contracted. This accentuates wall thickness. Prostate gland is n ot enlarged. Stomach is distended by food. No dilated small bowel loops. Colon is not dilated. Patient has contras t in distal small bowel loops from earlier modified barium swallow. No free air or pneumatosis. Large volume of ascites present. No omental thickening. Patient has signi ficant fluid retention in the subcutaneous fatty tissues. No bulky lymphadenopathy. A large infrarenal abdominal aortic aneurysm is present 3.9 cm AP x 4.6 cm TR. Assessment is limited in the absence of contrast. No iliac aneurysm. No suspicious bony findings. IMPRESSION: Large volume of ascites. Patient also has substantial subcutaneous fluid retention as we ll as small right-side and moderate left-side pleural effusions. No cardiomegaly is present. Anasarca pattern may not be cardiac in origin. Cirrhosis or diffuse hepatic parenchymal disease. No focal liver lesion. Provided history indicates pancreatic cancer. No pancreatic mass is identified. There may be postsurg ical changes at the tail. Full assessment is limited is the absence of IV contrast.
[2019-04-17] MEDS: ENOXAPARIN 30 MG/0.3 ML SQ SCH (20:47)
[2019-04-18] MEDS: Meropenem 500 MG in NA CHLORIDE 0.9% 100 ML IV SCH ×4 (00:24→17:00)
[2019-04-18] MEDS: FENTANYL CITR 100 MCG/2 ML IV PRN ×2 (01:17→05:32)
[2019-04-18] MEDS: ALBUTEROL 2.5 MG/3 ML NEB SOL NEB SCH ×4 (02:00→20:55)
[2019-04-18] MEDS: IPRATROPIUM BROM 0.5MG/2.5ML NEB SCH ×6 (04:05→20:55)
[2019-04-18] MEDS: D5 0.9 NS 1,000 ML IV SCH ×2 (04:56→12:18)
[2019-04-18 06:12] LABS: Basophils % 0.9 % (0-1.3); Hematocrit 28.6 % (39.6-49.0); MPV 9.6 fL (7.6-11.3); RBC Red Blood Cell Count 2.79 M/uL (4.33-5.43)
[2019-04-18 06:22] LABS: Potassium 4.3 mmol/L (3.5-5.1)
[2019-04-18] MEDS: INSULIN -REGULAR HUMAN 50 UNIT/0.5 ML ML SQ SCH ×4 (07:30→21:00)
[2019-04-18] MEDS: HYDROCODONE/APAP 7.5/325 MG TAB PO PRN ×3 (11:30→23:52)
--- NOTE | 2019-04-18 12:31 | P.PN ---
Subjective Date of Service: 04/18/19 Chief Complaint: Generalized weakness, inability to swallow. Patient is tolerating dysphagia diet-mechanical soft diet and thin liquids. He is complaining of abdominal distention. Physical Examination - Vital Signs Temperature: 98.8 F Blood Pressure: 128/69 Pulse: 91 Respirations: 24 Pulse Ox (%): 90 - Physical Exam General: Alert, In no apparent distress, Oriented x3 HEENT: Mucous membr. moist/pink Neck: Supple, JVD not distended Respiratory: Clear to auscultation bilaterally, Normal air movement Cardiovascular: Regular rate/rhythm, Normal S1 S2, Edema (Lower extremities) Gastrointestinal: Normal bowel sounds, No tenderness, Distended Neurological: Normal speech Assessment And Plan - Current Problems (Diagnosis) (1) Aspiration pneumonia Current Visit: Yes Status: Acute (2) Acute renal failure Current Visit: Yes Status: Acute (3) Moderate protein-calorie malnutrition Current Visit: Yes Status: Acute (4) Pancreatic cancer Current Visit: Yes Status: Acute (5) Pulmonary nodules Current Visit: Yes Status: Acute (6) Anemia Current Visit: Yes Status: Acute (7) Atrial fibrillation Current Visit: Yes Status: Acute - Plan Continue IV meropenem given history of ESBL in the sputum. Urine culture: No growth, blood culture: No growth to date. Sputum culture is pending. Continue Scheduled bronchodilators, chest physiotherapy. Patient noted to have prominent cricopharyngeus, decreasing pharyngeal space and decreasing amount of bolus to pass into esophagus. ENT consult requested and pending Continue mechanical soft and thin liquid as recommended by speech and swallow Serum creatinine is improving. Discontinue IV fluid Follow cultures. Insulin sliding scale for glucose management. Hold metformin. Diagnostic and therapeutic paracentesis requested today.
[2019-04-18] MEDS: POTASSIUM CL SA 10 MEQ TAB PO SCH (20:22)
[2019-04-18] MEDS: CYCLOBENZAPRINE 10 MG TAB PO SCH (20:23)
[2019-04-18] MEDS: AMIODARONE HCL 200 MG TAB PO SCH (20:25)
[2019-04-18] MEDS: HOME MED 1 EA UNK (Tiotropium Bromide [Spiriva Respimat] 1 PUFF) IH SCH (21:00)
[2019-04-18] MEDS: BUDESONIDE IH SCH (21:00)
[2019-04-18] MEDS: ENOXAPARIN 30 MG/0.3 ML SQ SCH (22:00)
[2019-04-19] MEDS: Meropenem 500 MG in NA CHLORIDE 0.9% 100 ML IV SCH ×3 (00:25→16:44)
[2019-04-19] MEDS: ALBUTEROL 2.5 MG/3 ML NEB SOL NEB SCH ×4 (02:00→20:00)
[2019-04-19] MEDS: IPRATROPIUM BROM 0.5MG/2.5ML NEB SCH ×6 (04:00→20:00)
[2019-04-19 05:36] LABS: Absolute Lymphocytes (CBC) 1.1 K/uL (0.7-4.9); Basophils % 1.1 % (0-1.3); Lymphocytes % 21.9 % (15.3-44.8); MPV 8.8 fL (7.6-11.3); RBC Red Blood Cell Count 2.59 M/uL (4.33-5.43)
[2019-04-19 05:51] LABS: Magnesium 1.7 mg/dL (1.8-2.4); Phosphorus 2.9 mg/dL (2.5-4.9); Potassium 3.9 mmol/L (3.5-5.1)
[2019-04-19] MEDS: INSULIN -REGULAR HUMAN 50 UNIT/0.5 ML ML SQ SCH ×4 (07:30→20:13)
[2019-04-19] MEDS ORDERED: KCL 20 MEQ/100 mL IVPB 20 MEQ/100 ML BAG IV SCH (08:55)
[2019-04-19] MEDS ORDERED: MAGNESIUM SULFATE 1 gm IVPB 1 GM/100 ML BAG IV ONE (09:00)
[2019-04-19] MEDS: BUDESONIDE IH SCH ×2 (09:00→20:49)
[2019-04-19] MEDS: HOME MED 1 EA UNK (Tiotropium Bromide [Spiriva Respimat] 1 PUFF) IH SCH ×2 (09:00→20:49)
[2019-04-19] MEDS: AMIODARONE HCL 200 MG TAB PO SCH ×2 (11:01→20:38)
[2019-04-19] MEDS: POTASSIUM CL SA 10 MEQ TAB PO SCH ×2 (11:01→20:38)
--- NOTE | 2019-04-19 11:09 | P.PN ---
Subjective Date of Service: 04/19/19 Chief Complaint: Generalized weakness, inability to swallow. Patient is tolerating dysphagia diet-mechanical soft diet and thin liquids. He continued to cough up greenish sputum. Physical Examination - Vital Signs Temperature: 98.9 F Blood Pressure: 146/86 Pulse: 84 Respirations: 18 Pulse Ox (%): 90 - Physical Exam General: Alert, In no apparent distress HEENT: Mucous membr. moist/pink Neck: JVD not distended Respiratory: Clear to auscultation bilaterally, Normal air movement Cardiovascular: No edema, Regular rate/rhythm, Normal S1 S2 Gastrointestinal: Soft and benign, No tenderness Assessment And Plan - Current Problems (Diagnosis) (1) Aspiration pneumonia Current Visit: Yes Status: Acute (2) Acute renal failure Current Visit: Yes Status: Acute (3) Moderate protein-calorie malnutrition Current Visit: Yes Status: Acute (4) Pancreatic cancer Current Visit: Yes Status: Acute (5) Pulmonary nodules Current Visit: Yes Status: Acute (6) Anemia Current Visit: Yes Status: Acute (7) Atrial fibrillation Current Visit: Yes Status: Acute - Plan Continue IV meropenem given history of ESBL in the sputum. Also suspect possible pulmonary Pseudomonas infection. Urine culture: No growth, blood culture: No growth to date. Sputum culture is pending. Continue Scheduled bronchodilators, chest physiotherapy. Patient noted to have prominent cricopharyngeus, decreasing pharyngeal space and decreasing amount of bolus to pass into esophagus. Patient seen by ENT and awaiting recommendation. Continue mechanical soft and thin liquid as recommended by speech and swallow Diagnostic and therapeutic abdominal paracentesis today Follow cultures. Insulin sliding scale for glucose management. Hold metformin.
[2019-04-19] MEDS: HYDROCODONE/APAP 7.5/325 MG TAB PO PRN ×2 (11:23→20:45)
--- NOTE | 2019-04-19 11:55 | RAD REPORT ---
EXAM DESCRIPTION: US - Paracentesis Proc Guidance - 04/19/2019 10:15 am CLINICAL HISTORY: Liver disease with ascites FINDINGS: The risks, benefits and alternatives to the procedure were explained to the patient and in formed consent obtained. The skin and subcutaneous tissues were anesthetized with Lidocaine. Under sonographic guidance an 8 F rench catheter was placed into the right lower quadrant. 5 liters of yellow fluid removed and sent to the lab The patient experienced no immediate complication. IMPRESSION: Paracentesis
[2019-04-19] MEDS ORDERED: NA CHLORIDE 0.9% 250 ML ONE (12:17)
[2019-04-19 12:48] LABS: Body Fluid Source PERITONEAL
[2019-04-19 12:49] LABS: Appearance CLEAR (CLEAR); Body Fluid WBC 138 /mm^3; Color of fluid Yellow (COLORLESS)
--- NOTE | 2019-04-19 12:56 | P.PN ---
Date of Service: 04/19/19 Patient underwent paracentesis, came back to the floor, took a nap, and wake up with right subconjunctival hemorrhage. Noted low platelet count. Last Lovenox dose was 24 hrs ago. There is a high possibility for coagulopathy given patient has ascites. Will check PT, INR and PTT Give vitamin K Ophthalmology consult requested.
[2019-04-19] MEDS ORDERED: VITAMIN K (ADULT) 10 MG/ML SQ SCH (13:00)
[2019-04-19 13:21] LABS: Protime INR 1.13
--- NOTE | 2019-04-19 18:53 | CON ---
Date of Consultation: 04/19/2019 Reason For Consultation: Dysphagia. History Of Present Illness: Patient was admitted through the emergency room on 04/16/2019 with complaints of acute worsening dysphagia, shortness of breath, weight loss, and progressive weakness with persistent coughing, productive of green and brown sputum. The family noted the patient was diagnosed with ESBL sputum infection at an LTAC recently. In talking with the patient, he notes dysphagia and difficulty swallowing with discomfort, but not pain over the last 6 to 8 months, which became acutely worse a few days prior to his admission. The patient noted difficulty swallowing both solids and liquids. He denies any ear pain, throat pain, change in his voice, or other localizing symptoms in regard to throat or head and neck symptoms. Of note, the patient underwent modified barium study, which will be detailed later in this note and this morning underwent paracentesis with removal of 5 L of yellow straw-colored fluid, which is being sent for analysis. In discussion with the patient, he feels significant improvement in his swallowing following his paracentesis this morning. He describes the difference as a "night and day. " The daughter with him this afternoon confirms the patient's significant improvement in eating and said he was able to the eat his [employer] steak for lunch, "like a [place]." Patient has an active medical history of pancreatic cancer, which was diagnosed approximately 2 years ago. He has been under chemotherapy with stabilization of the tumor according to the patient and his daughter. His last chemotherapy/ treatment was with Dr. Martinez at [facility] in January 2019. The patient was also admitted at an outside facility for pneumonia in March. The daughter states that he was hospitalized for approximately 1 week and then transferred to [facility] for further recovery. He was discharged from [facility] approximately a week prior to his admission at this hospital. Of interest, the patient underwent a carotid endarterectomy approximately 1 year ago. He denies any significant voice or swallowing changes associated with his carotid endarterectomy surgery. The other history is obtained from the medical record, including admission history and physical. Past Medical History: Diabetes, COPD, atrial fibrillation, pancreatic cancer, lung nodules, diabetes, peripheral vascular disease, appendectomy, carotid endarterectomy, acute kidney injury, lactic acidosis, anemia. Family History: Positive for diabetes in his mother. Social History: Former tobacco use. Patient is supported socially by his 4 adult daughters, who live in the area. Review of Systems: Reviewed as documented by Dr. Ortez on 04/16 and is otherwise unchanged. Physical Examination: General: Patient is in no acute distress. He is alert and oriented. HEENT: His head and face is atraumatic and normocephalic. Yesterday evening when I examined the patient, his pupils are equal, round, and reactive. His extraocular movements were intact and his conjunctivae were normal. This afternoon during a discussion of the swallow study results and treatment recommendations, his right eye shows significant chemosis with subconjunctival hemorrhage of the conjunctiva. The iris and the pupil appear unremarkable. The pupil appears to be reactive. The patient states this change in the eye was noted following his paracentesis today, though there is no report of trauma or other inciting cause to this finding. The patient's nares are clear from lesions, but there is mild dryness associated with nasal cannula oxygen use and his tongue is mildly dry with fissures, but otherwise unremarkable in terms of ulcerations, lesions, or abnormal movements. Respiratory: The patient's respirations appear unlabored. Laboratory Studies: Patient's white count on admission was 6.4 and remains normal. His hemoglobin was 10.8 and is currently 8.7, but has been stable over the last 72 hours at 8.7, 9.4, and 8.7. His platelet count is mildly decreased in the 88 to 126 level. His coagulation studies on admission show an elevated PT at 14.3 and INR of 1.22. These are stable today compared to admission. His chemistry shows an elevated creatinine at 1.62 today, which is improved from 2.06 on admission on the . His glucose has been in the range of 71 to 165. His total albumin level on admission was decreased at 2.2. His TSH yesterday was 2.44. Urinalysis on admission showed moderate bacteria. The peritoneal fluid collected this morning was yellow in color with 138 white cells and further analysis is pending. Modified barium swallow performed on 04/17 demonstrated a residue in the vallecula and piriform sinus with retropulsion back into the piriform sinus from the upper esophageal sphincter/cricopharyngeus. He had laryngeal penetration with the pudding coated Kang cracker and was felt to have a prominent cricopharyngeus at the level of C5-6 decreasing the amount of bolus, which passed into the esophagus. He was also noted to have [id number] esophageal stasis. The speech pathologist report from this modified barium study recommended urgent ENT evaluation and films from the modified barium study are personally reviewed by me. Assessment: Cricopharyngeal dysfunction, dysphagia, aspiration from food without injury, aspiration pneumonia, pancreatic cancer, ascites, malnutrition, chronic obstructive pulmonary disease with oxygen dependence. Plan: Based on initial evaluation on 04/18/2019 and review of the modified barium study, it was my plan to offer the patient a direct laryngoscopy with rigid esophagoscopy, dilation of the esophagus, and possible injection of Botox to the cricopharyngeus in regard to treating his swallowing dysfunction. In discussion with the patient today, he has had a dramatic subjective improvement in his swallowing following paracentesis with removal of 5 L of fluid and given the degree of subjective improvement, he defers any intervention at this time. I recommend the patient follow up with me on an outpatient basis in approximately a month for re-evaluation of his swallowing function. His daughter is present at the time of our discussion and agrees with deferment of intervention at this time. From an ENT standpoint, he can resume his chemotherapy and management of other comorbid medical conditions as indicated. ZACH/AUSTIN Voice ID: [id number] Report ID: [id number] NEERU
[2019-04-19] MEDS: CYCLOBENZAPRINE 10 MG TAB PO SCH (20:37)
[2019-04-20] MEDS: Meropenem 500 MG in NA CHLORIDE 0.9% 100 ML IV SCH ×3 (00:42→17:03)
[2019-04-20] MEDS: ALBUTEROL 2.5 MG/3 ML NEB SOL NEB SCH ×4 (02:00→20:00)
[2019-04-20] MEDS: IPRATROPIUM BROM 0.5MG/2.5ML NEB SCH ×6 (04:00→20:00)
[2019-04-20 05:19] LABS: Potassium 4.2 mmol/L (3.5-5.1)
[2019-04-20 05:20] LABS: Absolute Lymphocytes (CBC) 0.4 K/uL (0.7-4.9); Hematocrit 28.5 % (39.6-49.0); MPV 8.7 fL (7.6-11.3); RBC Red Blood Cell Count 2.77 M/uL (4.33-5.43)
[2019-04-20] MEDS: INSULIN -REGULAR HUMAN 50 UNIT/0.5 ML ML SQ SCH ×4 (07:30→21:00)
[2019-04-20] MEDS: AMIODARONE HCL 200 MG TAB PO SCH ×2 (08:22→21:58)
[2019-04-20] MEDS: POTASSIUM CL SA 10 MEQ TAB PO SCH ×2 (08:22→21:57)
[2019-04-20] MEDS: HOME MED 1 EA UNK (Tiotropium Bromide [Spiriva Respimat] 1 PUFF) IH SCH ×2 (09:00→21:00)
[2019-04-20] MEDS: BUDESONIDE IH SCH ×2 (09:00→21:00)
[2019-04-20] MEDS: HYDROCODONE/APAP 7.5/325 MG TAB PO PRN ×2 (10:16→17:40)
--- NOTE | 2019-04-20 13:03 | P.PN ---
Subjective Date of Service: 04/20/19 Chief Complaint: Generalized weakness, inability to swallow. Patient is tolerating dysphagia diet-mechanical soft diet and thin liquids and eating He continued to cough up greenish sputum. Right eye subconjunctival hemorrhage is unchanged from yesterday. Status post paracentesis yesterday. Physical Examination - Vital Signs Temperature: 98.5 F Blood Pressure: 119/75 Pulse: 72 Respirations: 20 Pulse Ox (%): 91 - Physical Exam General: Alert, In no apparent distress, Oriented x3 HEENT: Other (Right eye subconjunctival hemorrhage.) Neck: JVD not distended Respiratory: Clear to auscultation bilaterally, Normal air movement Cardiovascular: No edema, Regular rate/rhythm, Normal S1 S2 Gastrointestinal: Soft and benign, No tenderness Neurological: Normal speech, Normal strength at 5/5 x4 extr Assessment And Plan - Current Problems (Diagnosis) (1) Aspiration pneumonia Current Visit: Yes Status: Acute (2) Acute renal failure Current Visit: Yes Status: Acute (3) Moderate protein-calorie malnutrition Current Visit: Yes Status: Acute (4) Pancreatic cancer Current Visit: Yes Status: Acute (5) Pulmonary nodules Current Visit: Yes Status: Acute (6) Anemia Current Visit: Yes Status: Acute (7) Atrial fibrillation Current Visit: Yes Status: Acute - Plan Continue IV meropenem given history of ESBL in the sputum. Also suspect possible pulmonary Pseudomonas infection. Urine culture: No growth, blood culture: No growth to date. Sputum culture: GNR. Continue Scheduled bronchodilators, chest physiotherapy. Patient noted to have prominent cricopharyngeus, decreasing pharyngeal space and decreasing amount of bolus to pass into esophagus. Patient seen by ENT and recommended for OR examination. The patient declined and stated he is now eating fine and does not need it. Continue mechanical soft and thin liquid as recommended by speech and swallow Peritoneal fluid: Transudative, culture: no growth to date. Insulin sliding scale for glucose management. Hold metformin. PT and OT Anticipating transition to skilled rehab. Insert PICC for prolonged Meropenem therapy.
[2019-04-20] MEDS ORDERED: BISACODYL 10 MG RECTAL SUPP PR ONE (19:00)
[2019-04-20] MEDS: JUVEN PACKET PO SCH (21:00)
[2019-04-20] MEDS: GLUCERNA SHAKE 237 ML CAN PO SCH (21:00)
[2019-04-20] MEDS: CYCLOBENZAPRINE 10 MG TAB PO SCH (22:00)
[2019-04-21] MEDS: Meropenem 500 MG in NA CHLORIDE 0.9% 100 ML IV SCH ×3 (00:15→17:13)
[2019-04-21] MEDS: ALBUTEROL 2.5 MG/3 ML NEB SOL NEB SCH ×4 (02:00→20:00)
[2019-04-21] MEDS: IPRATROPIUM BROM 0.5MG/2.5ML NEB SCH ×6 (04:00→20:00)
[2019-04-21 06:37] LABS: Absolute Lymphocytes (CBC) 1.2 K/uL (0.7-4.9); Basophils % 0.7 % (0-1.3); Hematocrit 32.2 % (39.6-49.0); Lymphocytes % 25.9 % (15.3-44.8); MPV 9.4 fL (7.6-11.3)
[2019-04-21 07:17] LABS: Potassium 5.7 mmol/L (3.5-5.1)
[2019-04-21] MEDS: INSULIN -REGULAR HUMAN 50 UNIT/0.5 ML ML SQ SCH ×4 (07:30→20:53)
[2019-04-21] MEDS ORDERED: SOD POLYSTYREN SUL 15 GM/60 ML UCUP PO ONE (09:00)
[2019-04-21] MEDS: BUDESONIDE IH SCH ×2 (09:00→21:00)
[2019-04-21] MEDS: HOME MED 1 EA UNK (Tiotropium Bromide [Spiriva Respimat] 1 PUFF) IH SCH ×2 (09:00→21:00)
[2019-04-21] MEDS: AMIODARONE HCL 200 MG TAB PO SCH ×2 (09:10→20:52)
[2019-04-21] MEDS: GLUCERNA SHAKE 237 ML CAN PO SCH ×2 (09:12→20:53)
[2019-04-21] MEDS: JUVEN PACKET PO SCH ×2 (09:12→20:53)
--- NOTE | 2019-04-21 10:16 | P.PN ---
Subjective Date of Service: 04/21/19 Chief Complaint: Generalized weakness, inability to swallow. Patient is tolerating dysphagia diet-mechanical soft diet and thin liquids and eating very well with no issues. Cough productive of greenish sputum persist Right eye subconjunctival hemorrhage is improving. He reports good bowel movement yesterday. Physical Examination - Vital Signs Temperature: 98.5 F Blood Pressure: 119/83 Pulse: 85 Respirations: 18 Pulse Ox (%): 90 - Physical Exam General: Alert, In no apparent distress HEENT: Mucous membr. moist/pink, Other (Right eye subconjunctival hemorrhage is improving.) Neck: JVD not distended Respiratory: Clear to auscultation bilaterally, Normal air movement Cardiovascular: No edema, Regular rate/rhythm, Normal S1 S2 Gastrointestinal: Soft and benign, Distended (Mildly distended) Musculoskeletal: No swelling Neurological: Normal speech Assessment And Plan - Current Problems (Diagnosis) (1) Aspiration pneumonia Current Visit: Yes Status: Acute (2) Acute renal failure Current Visit: Yes Status: Acute (3) Moderate protein-calorie malnutrition Current Visit: Yes Status: Acute (4) Pancreatic cancer Current Visit: Yes Status: Acute (5) Pulmonary nodules Current Visit: Yes Status: Acute (6) Anemia Current Visit: Yes Status: Acute (7) Atrial fibrillation Current Visit: Yes Status: Acute (8) Infected wound Current Visit: Yes Status: Acute - Plan Continue IV meropenem given history of ESBL in the sputum. Sputum culture: GNR. Wound culture: ESBL E. coli and Pseudomonas Continue Scheduled bronchodilators, chest physiotherapy. Patient noted to have prominent cricopharyngeus. ENT followup as an outpatient. Continue mechanical soft and thin liquid. Peritoneal fluid: Transudative, culture: no growth to date. Insulin sliding scale for glucose management. Continue PT and OT PICC to be inserted for prolonged Meropenem therapy.
[2019-04-21] MEDS: HYDROCODONE/APAP 7.5/325 MG TAB PO PRN ×2 (14:04→20:52)
[2019-04-21] MEDS: CYCLOBENZAPRINE 10 MG TAB PO SCH (20:52)
[2019-04-22] MEDS: Meropenem 500 MG in NA CHLORIDE 0.9% 100 ML IV SCH ×3 (00:02→16:59)
[2019-04-22] MEDS: ALBUTEROL 2.5 MG/3 ML NEB SOL NEB SCH ×4 (02:00→19:40)
[2019-04-22] MEDS: IPRATROPIUM BROM 0.5MG/2.5ML NEB SCH ×6 (04:00→19:40)
[2019-04-22 06:10] LABS: Absolute Lymphocytes (CBC) 1.3 K/uL (0.7-4.9); Basophils % 1.3 % (0-1.3); Lymphocytes % 27.4 % (15.3-44.8); RBC Red Blood Cell Count 2.79 M/uL (4.33-5.43)
[2019-04-22 06:40] LABS: Potassium 4.3 mmol/L (3.5-5.1)
[2019-04-22] MEDS: INSULIN -REGULAR HUMAN 50 UNIT/0.5 ML ML SQ SCH ×4 (07:30→21:00)
[2019-04-22 07:41] LABS: Anisocytosis 1+; Blood Morphology Comment NOTED (NOT SEEN); Platelet Estimate ADEQ; Poikilocytosis 1+
[2019-04-22 07:42] LABS: Elliptocytes 1+
[2019-04-22] MEDS: HOME MED 1 EA UNK (Tiotropium Bromide [Spiriva Respimat] 1 PUFF) IH SCH ×2 (09:00→21:00)
[2019-04-22] MEDS: BUDESONIDE IH SCH ×2 (09:00→21:00)
[2019-04-22] MEDS: HYDROCODONE/APAP 7.5/325 MG TAB PO PRN ×2 (09:44→17:09)
[2019-04-22] MEDS: AMIODARONE HCL 200 MG TAB PO SCH ×2 (09:44→21:17)
[2019-04-22] MEDS: JUVEN PACKET PO SCH ×2 (09:44→21:00)
[2019-04-22] MEDS: GLUCERNA SHAKE 237 ML CAN PO SCH ×2 (09:44→21:00)
--- NOTE | 2019-04-22 10:27 | P.PN ---
Subjective Date of Service: 04/22/19 Chief Complaint: Generalized weakness, inability to swallow. The patient has no new complaint. He had multiple bowel movements yesterday. He is eating well. He denies shortness of breath. Physical Examination - Vital Signs Temperature: 97.7 F Blood Pressure: 150/85 Pulse: 88 Respirations: 19 Pulse Ox (%): 94 - Physical Exam General: In no apparent distress HEENT: Mucous membr. moist/pink Neck: JVD not distended Respiratory: Clear to auscultation bilaterally, Normal air movement Cardiovascular: No edema, Regular rate/rhythm, Normal S1 S2 Gastrointestinal: Soft and benign, No tenderness Musculoskeletal: No swelling Integumentary: Pressure ulcer (2 stage II sacral ulcers, the wounds looks clean. ) Neurological: Normal speech, Normal strength at 5/5 x4 extr - Studies Microbiology Data (last 24 hrs): 04/16/19 17:00 Blood - Blood Aerobic Blood Culture - Final No growth in 5 days. 04/16/19 17:00 Blood - Blood Anaerobic Blood Culture - Final No growth in 5 days. 04/16/19 16:32 Blood - Blood Aerobic Blood Culture - Final No growth in 5 days. 04/16/19 16:32 Blood - Blood Anaerobic Blood Culture - Final No growth in 5 days. Assessment And Plan - Current Problems (Diagnosis) (1) Aspiration pneumonia Current Visit: Yes Status: Acute (2) Acute renal failure Current Visit: Yes Status: Acute (3) Moderate protein-calorie malnutrition Current Visit: Yes Status: Acute (4) Pancreatic cancer Current Visit: Yes Status: Acute (5) Pulmonary nodules Current Visit: Yes Status: Acute (6) Anemia Current Visit: Yes Status: Acute (7) Atrial fibrillation Current Visit: Yes Status: Chronic (8) Sacral decubitus ulcer, stage II Current Visit: Yes Status: Acute - Plan Pseudomonas in the sputum is resistant to meropenem Which change meropenem to IV Zosyn Continue Scheduled bronchodilators, chest physiotherapy. Patient noted to have prominent cricopharyngeus. ENT followup as an outpatient. Continue mechanical soft and thin liquid. Peritoneal fluid: Transudative, culture: no growth to date. Insulin sliding scale for glucose management. Continue PT and OT PICC to be inserted for prolonged antibiotic therapy.
[2019-04-22] MEDS: CYCLOBENZAPRINE 10 MG TAB PO SCH (21:17)
[2019-04-23] MEDS ORDERED: PIPER/TAZO/NS 3.375gm 6.750 GM/200 ML BAG ONE (01:02)
[2019-04-23] MEDS: PIPER/TAZO/NS 3.375gm 3.375 GM/100 ML BAG IVPB SCH ×4 (01:07→15:41)
[2019-04-23] MEDS: ALBUTEROL 2.5 MG/3 ML NEB SOL NEB SCH ×4 (02:00→20:00)
[2019-04-23] MEDS: HYDROCODONE/APAP 7.5/325 MG TAB PO PRN ×4 (02:56→21:57)
[2019-04-23] MEDS: IPRATROPIUM BROM 0.5MG/2.5ML NEB SCH ×6 (03:58→20:00)
[2019-04-23 05:47] LABS: Absolute Lymphocytes (CBC) 1.7 K/uL (0.7-4.9); Basophils % 0.5 % (0-1.3); Hematocrit 28.1 % (39.6-49.0); Lymphocytes % 28.4 % (15.3-44.8); MPV 8.8 fL (7.6-11.3); RBC Red Blood Cell Count 2.81 M/uL (4.33-5.43)
[2019-04-23 06:01] LABS: Potassium 4.4 mmol/L (3.5-5.1)
[2019-04-23] MEDS: INSULIN -REGULAR HUMAN 50 UNIT/0.5 ML ML SQ SCH ×4 (07:30→21:55)
[2019-04-23] MEDS: AMIODARONE HCL 200 MG TAB PO SCH ×2 (08:10→21:56)
[2019-04-23] MEDS: BUDESONIDE IH SCH ×2 (08:10→21:00)
[2019-04-23] MEDS: GLUCERNA SHAKE 237 ML CAN PO SCH ×2 (08:10→21:58)
[2019-04-23] MEDS: JUVEN PACKET PO SCH ×2 (08:10→21:58)
[2019-04-23] MEDS: HOME MED 1 EA UNK (Tiotropium Bromide [Spiriva Respimat] 1 PUFF) IH SCH ×2 (08:11→21:00)
[2019-04-23 08:51] LABS: Anisocytosis 1+; Blood Morphology Comment NOTED (NOT SEEN); Platelet Estimate DECR; Platelets, Giant PRESENT
--- NOTE | 2019-04-23 11:11 | P.PN ---
Subjective Date of Service: 04/23/19 Chief Complaint: Generalized weakness, inability to swallow. Patient's right eye is more red today. His abdomen is also becoming more distended. He is eating well. He denies shortness of breath. He has been afebrile. Physical Examination - Vital Signs Temperature: 98.5 F Blood Pressure: 146/84 Pulse: 75 Respirations: 20 Pulse Ox (%): 94 - Physical Exam General: In no apparent distress HEENT: Mucous membr. moist/pink, Other (Right eye subconjunctival hemorrhage) Neck: JVD not distended Respiratory: Clear to auscultation bilaterally, Normal air movement Cardiovascular: No edema, Regular rate/rhythm, Normal S1 S2 Gastrointestinal: Normal bowel sounds, Soft and benign, Distended Musculoskeletal: No swelling Neurological: Normal speech, Normal strength at 5/5 x4 extr Assessment And Plan - Current Problems (Diagnosis) (1) Aspiration pneumonia Current Visit: Yes Status: Acute (2) Acute renal failure Current Visit: Yes Status: Acute (3) Moderate protein-calorie malnutrition Current Visit: Yes Status: Acute (4) Pancreatic cancer Current Visit: Yes Status: Acute (5) Pulmonary nodules Current Visit: Yes Status: Acute (6) Anemia Current Visit: Yes Status: Acute (7) Atrial fibrillation Current Visit: Yes Status: Chronic (8) Sacral decubitus ulcer, stage II Current Visit: Yes Status: Acute - Plan Continue IV Zosyn. Soliciting ID input. Continue Scheduled bronchodilators, chest physiotherapy. Patient noted to have prominent cricopharyngeus. ENT followup as an outpatient. Continue mechanical soft and thin liquid. Peritoneal fluid: Transudative, culture: no growth to date. Insulin sliding scale for glucose management. Continue PT and OT PICC inserted for prolonged antibiotic therapy. Awaiting disposition to skilled rehab. SCD for DVT prophylaxis.
--- NOTE | 2019-04-23 11:14 | RAD REPORT ---
EXAM DESCRIPTION: XR Chest Single View CLINICAL HISTORY: Picc line insertion TECHNIQUE: Single frontal view of the chest is submitted. COMPARISON: None available for comparison FINDINGS: Heart: The cardiothoracic silhouette is enlarged. Lungs: Central pulmonary vascular and interstitial prominence, bilateral perihilar and basilar opacit ies. Bilateral perihilar linear subsegmental atelectasis/pleural parenchymal scar. Mediastinum: Blunting of the costophrenic angles bilaterally. Pleura: No appreciable effusion. No pneumothorax. Bones: Intact Upper abdomen: Unremarkable Other: Right upper extremity PICC tip projects over the proximal to mid superior vena cava. IMPRESSION: 1. Right upper extremity PICC tip projects over the proximal to mid superior vena cava . 2. Findings which may be related to pulmonary congestion including small bilateral pleural effusion s. Superimposed infection not excluded. Electronically signed by: Desirae Cabrera MD 04/21/2019 10:02 PM [employer] Due to temporary technical issues with the PACS/Fluency reporting system, reports are being signed by the in house radiologist as a courtesy to ensure prompt reporting. The interpreting radiologist is f ully responsible for the content of the report.
[2019-04-23] MEDS: MEDIHONEY 44 ML TOPICAL TUBE TOP SCH (15:34)
[2019-04-23] MEDS: CYCLOBENZAPRINE 10 MG TAB PO SCH (21:56)
[2019-04-23] MEDS ORDERED: NA CHLORIDE 0.9% 250 ML ONE (23:28)
[2019-04-24] MEDS: PIPER/TAZO/NS 3.375gm 3.375 GM/100 ML BAG IVPB SCH ×3 (00:37→16:28)
[2019-04-24] MEDS: ALBUTEROL 2.5 MG/3 ML NEB SOL NEB SCH ×4 (02:00→20:00)
[2019-04-24] MEDS: IPRATROPIUM BROM 0.5MG/2.5ML NEB SCH ×6 (04:00→20:00)
[2019-04-24] MEDS: HYDROCODONE/APAP 7.5/325 MG TAB PO PRN (05:22)
[2019-04-24] MEDS: INSULIN -REGULAR HUMAN 50 UNIT/0.5 ML ML SQ SCH ×4 (07:30→21:18)
[2019-04-24] MEDS ORDERED: COLLAGENASE 30 GM OINTMENT TOP SCH (09:00)
[2019-04-24] MEDS: BUDESONIDE IH SCH ×2 (09:43→21:00)
[2019-04-24] MEDS: GLUCERNA SHAKE 237 ML CAN PO SCH ×2 (09:43→20:41)
[2019-04-24] MEDS: HOME MED 1 EA UNK (Tiotropium Bromide [Spiriva Respimat] 1 PUFF) IH SCH ×2 (09:43→21:00)
[2019-04-24] MEDS: AMIODARONE HCL 200 MG TAB PO SCH ×2 (09:43→23:10)
[2019-04-24] MEDS: JUVEN PACKET PO SCH ×2 (09:43→20:41)
[2019-04-24] MEDS ORDERED: HYDROCODONE/APAP 5/325 MG TAB PO PRN (12:53)
[2019-04-24] MEDS ORDERED: ACETIC ACID 0.25% IRRIG IRR ONE (13:36)
[2019-04-24] MEDS: HYDROCODONE/APAP 5/325 MG TAB PO PRN ×2 (14:11→23:02)
--- NOTE | 2019-04-24 16:02 | P.PN ---
Subjective Date of Service: 04/24/19 Chief Complaint: Generalized weakness, inability to swallow. Patient is complaining of intermittent abdominal pain today. His abdomen is distended. He is eating well. He denies shortness of breath. Physical Examination - Vital Signs Temperature: 98.3 F Blood Pressure: 150/78 Pulse: 70 Respirations: 17 Pulse Ox (%): 96 - Physical Exam General: Alert, In no apparent distress, Oriented x3 HEENT: Mucous membr. moist/pink Neck: Supple, JVD not distended Respiratory: Other (Mild bibasilar rales) Cardiovascular: No edema, Regular rate/rhythm, Normal S1 S2 Gastrointestinal: Soft and benign, No tenderness, Distended Musculoskeletal: No swelling Integumentary: Other (Stage II sacral decubitus ulcer-looks clean.) Assessment And Plan - Current Problems (Diagnosis) (1) Aspiration pneumonia Current Visit: Yes Status: Acute (2) Acute renal failure Current Visit: Yes Status: Acute (3) Moderate protein-calorie malnutrition Current Visit: Yes Status: Acute (4) Pancreatic cancer Current Visit: Yes Status: Acute (5) Pulmonary nodules Current Visit: Yes Status: Acute (6) Anemia Current Visit: Yes Status: Acute (7) Atrial fibrillation Current Visit: Yes Status: Chronic (8) Sacral decubitus ulcer, stage II Current Visit: Yes Status: Acute - Plan Continue IV Zosyn. ID input appreciated. Patient is slated for a 14 days of IV Zosyn treatment. Acetic acid for wound care. Continue Scheduled bronchodilators, chest physiotherapy. Patient noted to have prominent cricopharyngeus. ENT followup as an outpatient. Continue mechanical soft and thin liquid. Insulin sliding scale for glucose management. Continue PT and OT PICC inserted for prolonged antibiotic therapy. Awaiting disposition to skilled rehab. SCD for DVT prophylaxis.
[2019-04-24] MEDS: MEDIHONEY 44 ML TOPICAL TUBE TOP SCH (16:28)
[2019-04-24 16:48] LABS: Magnesium 1.7 mg/dL (1.8-2.4)
[2019-04-24] MEDS ORDERED: BISACODYL 10 MG RECTAL SUPP PR ONE (17:58)
--- NOTE | 2019-04-24 17:58 | PN ---
Subjective: Patient is going to skilled facility custodial. Denies any headache, nausea, vomitin g, chest pain, abdominal pain, constipation, or diarrhea. Objective: Vital Signs: Temperature 98.3, pulse 70, respirations 17, blood pressure 150/78. Lungs: Basal crackles. Heart: S1, S2. Regular. Abdomen: Soft, nontender. Bowel sounds present. Extremities: No edema. Laboratory Data: No new labs available for today. Assessment And Plan: Pseudomonas pneumonia and extended-spectrum beta-lactamase Pseudomonas, Escheri amado coli, right hip wound, aspiration pneumonia, pancreatic cancer, right buttock stage III wounds, improving. Continue Medihoney, clean with acidic acid as we are treating the Pseudomonas with acetic acid. Continue supportive care and wound care. Continue antibiotic. Continue Zosyn for Pseudomona s pneumonia. We will follow patient as needed. DARIEL/MODL Voice ID: [id number] Report ID: [id number]
[2019-04-24] MEDS: CYCLOBENZAPRINE 10 MG TAB PO SCH (21:18)
[2019-04-25] MEDS: ALBUTEROL 2.5 MG/3 ML NEB SOL NEB SCH ×4 (02:00→20:00)
[2019-04-25] MEDS: PIPER/TAZO/NS 3.375gm 3.375 GM/100 ML BAG IVPB SCH ×3 (02:15→16:49)
[2019-04-25] MEDS: IPRATROPIUM BROM 0.5MG/2.5ML NEB SCH ×6 (04:00→20:00)
[2019-04-25] MEDS: HYDROCODONE/APAP 5/325 MG TAB PO PRN ×3 (05:08→21:59)
[2019-04-25 06:36] LABS: Absolute Lymphocytes (CBC) 2.5 K/uL (0.7-4.9); Basophils % 1.5 % (0-1.3); Hematocrit 29.5 % (39.6-49.0); Lymphocytes % 36.6 % (15.3-44.8); MPV 9.2 fL (7.6-11.3); RBC Red Blood Cell Count 2.95 M/uL (4.33-5.43)
[2019-04-25 06:56] LABS: Potassium 4.1 mmol/L (3.5-5.1)
[2019-04-25] MEDS: INSULIN -REGULAR HUMAN 50 UNIT/0.5 ML ML SQ SCH ×4 (07:30→20:16)
[2019-04-25] MEDS: HOME MED 1 EA UNK (Tiotropium Bromide [Spiriva Respimat] 1 PUFF) IH SCH ×2 (09:00→20:16)
[2019-04-25] MEDS ORDERED: MAGNESIUM SULFATE 1 gm IVPB 1 GM/100 ML BAG IV ONE (09:00)
[2019-04-25] MEDS: BUDESONIDE IH SCH ×2 (09:00→20:16)
[2019-04-25] MEDS: AMIODARONE HCL 200 MG TAB PO SCH ×2 (09:08→20:15)
[2019-04-25] MEDS: JUVEN PACKET PO SCH ×2 (09:09→20:16)
[2019-04-25] MEDS: GLUCERNA SHAKE 237 ML CAN PO SCH ×2 (09:09→20:16)
[2019-04-25] MEDS ORDERED: NA CHLORIDE 0.9% 500 ML ONE (09:15)
--- NOTE | 2019-04-25 10:14 | P.PN ---
Subjective Date of Service: 04/25/19 Chief Complaint: Generalized weakness, inability to swallow. Patient complaining of abdominal distention. He had a bowel movement yesterday in the afternoon and this morning. He is eating well. Physical Examination - Vital Signs Temperature: 98.4 F Blood Pressure: 146/82 Pulse: 80 Respirations: 20 Pulse Ox (%): 95 - Physical Exam General: Alert, In no apparent distress, Oriented x3 HEENT: Mucous membr. moist/pink Neck: Supple, JVD not distended Respiratory: Clear to auscultation bilaterally, Normal air movement Cardiovascular: No edema, Regular rate/rhythm, Normal S1 S2 Gastrointestinal: Soft and benign, No tenderness, Distended Musculoskeletal: No swelling Integumentary: Pressure ulcer (Sacrum), Other (Small wound-lateral edge of the left foot.) Neurological: Normal speech, Normal strength at 5/5 x4 extr Assessment And Plan - Current Problems (Diagnosis) (1) Aspiration pneumonia Current Visit: Yes Status: Acute (2) Acute renal failure Current Visit: Yes Status: Acute (3) Moderate protein-calorie malnutrition Current Visit: Yes Status: Acute (4) Pancreatic cancer Current Visit: Yes Status: Acute (5) Pulmonary nodules Current Visit: Yes Status: Acute (6) Anemia Current Visit: Yes Status: Acute (7) Atrial fibrillation Current Visit: Yes Status: Chronic (8) Sacral decubitus ulcer, stage II Current Visit: Yes Status: Acute - Plan Continue IV Zosyn. Patient is slated for a 14 days of IV Zosyn treatment. Acetic acid for sacral wound care. Continue Scheduled bronchodilators, chest physiotherapy. ENT followup as an outpatient for prominent cricopharyngeus. Continue mechanical soft and thin liquid. Insulin sliding scale for glucose management. Continue PT and OT PICC inserted for prolonged antibiotic therapy. Awaiting disposition to skilled rehab. Repeat paracenteses in a.m.
[2019-04-25] MEDS: MEDIHONEY 44 ML TOPICAL TUBE TOP SCH (16:49)
[2019-04-25] MEDS: FUROSEMIDE 40 MG/4 ML VIAL IV SCH (16:49)
[2019-04-25] MEDS: CYCLOBENZAPRINE 10 MG TAB PO SCH (20:14)
[2019-04-25] MEDS ORDERED: NA CHLORIDE 0.9% 100 ML ONE (23:47)
[2019-04-26] MEDS: PIPER/TAZO/NS 3.375gm 3.375 GM/100 ML BAG IVPB SCH ×3 (00:02→16:12)
[2019-04-26] MEDS: ALBUTEROL 2.5 MG/3 ML NEB SOL NEB SCH ×4 (02:00→20:00)
[2019-04-26] MEDS: IPRATROPIUM BROM 0.5MG/2.5ML NEB SCH ×7 (03:20→20:00)
[2019-04-26] MEDS: HYDROCODONE/APAP 5/325 MG TAB PO PRN ×3 (03:58→16:13)
[2019-04-26 05:08] LABS: Potassium 3.8 mmol/L (3.5-5.1)
[2019-04-26] MEDS: INSULIN -REGULAR HUMAN 50 UNIT/0.5 ML ML SQ SCH ×4 (07:30→20:44)
[2019-04-26] MEDS ORDERED: MAGNESIUM SULFATE 1 gm IVPB 1 GM/100 ML BAG IV ONE (07:45)
[2019-04-26] MEDS ORDERED: NA CHLORIDE 0.9% 0 ML ONE (08:05)
[2019-04-26] MEDS: GLUCERNA SHAKE 237 ML CAN PO SCH ×2 (08:07→20:43)
[2019-04-26] MEDS: JUVEN PACKET PO SCH ×2 (08:07→20:43)
[2019-04-26] MEDS: AMIODARONE HCL 200 MG TAB PO SCH ×2 (08:14→20:42)
[2019-04-26] MEDS: FUROSEMIDE 40 MG/4 ML VIAL IV SCH ×2 (08:14→16:13)
[2019-04-26] MEDS ORDERED: POTASSIUM CL SA 10 MEQ TAB PO ONE (08:15)
[2019-04-26] MEDS: HOME MED 1 EA UNK (Tiotropium Bromide [Spiriva Respimat] 1 PUFF) IH SCH ×2 (09:00→20:44)
[2019-04-26] MEDS ORDERED: KCL 20 MEQ/100 mL IVPB 20 MEQ/100 ML BAG IV SCH (09:00)
[2019-04-26] MEDS: BUDESONIDE IH SCH ×2 (09:00→21:00)
--- NOTE | 2019-04-26 10:19 | P.DS ---
Admission Date: 04/16/19 Discharge Date: 04/26/19 Disposition: TRANSFER TO SNF - MEDICAL Discharge Condition: FAIR Reason for Admission: Generalized weakness, inability to swallow. - Problems (1) Acute renal failure Current Visit: Yes Status: Acute (2) Anemia Current Visit: Yes Status: Acute (3) Aspiration pneumonia Current Visit: Yes Status: Acute (4) Infected wound Current Visit: Yes Status: Acute (5) Moderate protein-calorie malnutrition Current Visit: Yes Status: Acute (6) Pancreatic cancer Current Visit: Yes Status: Acute (7) Pulmonary nodules Current Visit: Yes Status: Acute (8) Sacral decubitus ulcer, stage II Current Visit: Yes Status: Acute (9) Atrial fibrillation Current Visit: Yes Status: Chronic Brief History of Present Illness: patient admitted for aspiration pna Hospital Course: Patient was started on antibiotics . he was noted with marked ascties and have paracentesis done with 5 L fluid removal . His SOB and dysphagia significantly improved post paracentesis . he was evaluated by ENT and noted with cricopharyngeal dysfunction and recommended botox injection but patient refused given his subjective improvement in his dysphagia . he was evaluated by ID and recommended 14 days of abx with zosyn ./ A PICC LINE WAS PLACED . patient will be dc to SNF for continuation of abx . His diuretics as changed from lasix to torsemide to aid fluid removal . He should have mag and k level checked in 2 days Vital Signs/Physical Exam: Temp Pulse Resp BP Pulse Ox 98.0 F 86 20 151/90 H 90 L 04/26/19 08:00 04/26/19 08:14 04/26/19 09:07 04/26/19 08:14 04/26/19 09:07 General: Alert, Oriented x3 HEENT: Atraumatic, Normocephalic Neck: Supple, 2+ carotid pulse no bruit Respiratory: Clear to auscultation bilaterally, Dull (at baseline ) Cardiovascular: Regular rate/rhythm, Normal S1 S2, Edema (1+ ) Gastrointestinal: Normal bowel sounds, Distended, Succussion splash, Hepatosplenomegaly, Ascites Musculoskeletal: No clubbing, No warmth Integumentary: No rashes, No breakdown, Pressure ulcer Neurological: Normal gait, Normal speech External genitalia: No edema, No lesions Laboratory Data at Discharge: WBC 6.8 K/uL (4.3-10.9) D 04/25/19 06:10 Hgb 9.9 g/dL (13.6-17.9) L 04/25/19 06:10 Hct 29.5 % (39.6-49.0) L 04/25/19 06:10 Plt Count 190 K/uL (152-406) D 04/25/19 06:10 PT 13.3 SECONDS (9.5-12.5) H 04/19/19 13:04 INR 1.13 04/19/19 13:04 APTT 35.3 SECONDS (24.3-36.9) 04/19/19 13:04 Sodium 139 mmol/L (136-145) 04/26/19 04:40 Potassium 3.8 mmol/L (3.5-5.1) 04/26/19 04:40 BUN 31 mg/dL (7-18) H 04/26/19 04:40 Creatinine 1.43 mg/dL (0.55-1.3) H 04/26/19 04:40 Glucose 120 mg/dL (74-106) H 04/26/19 04:40 Phosphorus 3.0 mg/dL (2.5-4.9) 04/24/19 16:30 Magnesium 1.8 mg/dL (1.8-2.4) 04/26/19 04:40 Total Bilirubin 1.1 mg/dL (0.2-1.0) H 04/16/19 16:32 AST 45 U/L (15-37) H 04/16/19 16:32 ALT 32 U/L (12-78) 04/16/19 16:32 Alkaline Phosphatase 227 U/L (45-117) H 04/16/19 16:32 Triglycerides 118 mg/dL (<150) 04/17/19 07:06 Cholesterol 110 mg/dL (<200) 04/17/19 07:06 HDL Cholesterol 22 mg/dL (40-60) L 04/17/19 07:06 Cholesterol/HDL Ratio 5.00 04/17/19 07:06 Lipase 51 U/L (73-393) L 04/16/19 16:32 Home Medications: Amiodarone HCl [Cordarone*] 200 mg PO BID 04/16/19 Budesonide [Pulmicort Flexhaler] 1 puff IH BID 04/16/19 Cyclobenzaprine HCl [Flexeril] 5 mg PO BEDTIME 04/16/19 Hydrocodone Bit/Acetaminophen [Hydrocodon-Acetaminoph 7.5-325] 1 tab PO Q6HP PRN 04/16/19 Metformin HCl 1,000 mg PO BID 04/16/19 Potassium Chloride 20 meq PO BID 04/16/19 Tiotropium [place] [Spiriva Respimat] 1 puff IH BID 04/16/19 PIPER/TAZO/NS 3.375gm [Zosyn 3.375 gm/100 ml Ns Ivpb] 3.375 gm IV Q8H #39 bag Albuterol Neb [Proventil 0.083% Neb Soln] 2.5 mg NEB [id number] amp 04/26/19 Glucerna Shake [Glucerna*] 237 ml PO BID can 04/26/19 Torsemide [Demadex*] 20 mg PO BID #60 tab 04/26/19 New Medications: PIPER/TAZO/NS 3.375gm [Zosyn 3.375 gm/100 ml Ns Ivpb] 3.375 gm IV Q8H #39 bag Torsemide [Demadex*] 20 mg PO BID #60 tab Diet: Low sodium Activity: Ad cesar Followup: Fadi Flores MD [ACTIVE - CAN ADMIT] - Hilary Felipe MD [ACTIVE - CAN ADMIT] - Time spent managing pt's care (in minutes): 35
--- NOTE | 2019-04-26 12:01 | RAD REPORT ---
EXAM DESCRIPTION: US - Paracentesis Proc Guidance - 04/26/2019 11:47 am CLINICAL HISTORY: ascities Ascites COMPARISON: Paracentesis Proc Guidance dated 04/19/2019 FINDINGS: Informed consent was obtained and time-out was performed. Patient's abdomen was prepped and draped in the usual sterile fashion. 1% lidocaine was used for loca l anesthetic purposes. A small skin incision was made in the left lower quadrant. A paracentesis catheter was guided into th e peroneal cavity under sonographic guidance. A large volume paracentesis was performed yielding 4 liters of fluid. The patient tolerated the procedure well. IMPRESSION: Successful ultrasound-guided paracentesis.
--- NOTE | 2019-04-26 12:19 | CON ---
History Of Present Illness: Patient is a 73-year-old male with significant history of COPD and chronic respiratory failure. Recently was admitted to [facility] for atrial fibrillation and was treated for pneumonia. Then, patient was discharged to long-term acute care at [facility] where he continued on his IV antibiotic. Patient spent 3 weeks at LTAC and then he was transferred back to home. Patient came in to the emergency room with problems swallowing solids and liquids. Denies any headache, nausea, vomiting, chest pain, abdominal pain, constipation, or diarrhea. Past Medical History: Diabetes mellitus, COPD, atrial fibrillation, pancreatic cancer, lung nodules, , appendectomy. Social History: Tobacco positive. Alcohol negative. Family History: Mother with diabetes. Medications: Zosyn. See MAR for other medication. Allergies: NO KNOWN DRUG ALLERGIES. Review of Systems: 10-point review was performed. Physical Examination: General: This is a 73-year-old male, lying in bed, not in any acute cardiopulmonary distress. Vital Signs: Temperature 98.5, pulse 75, respirations 20, blood pressure 146/ 84. HEENT: Unremarkable except right eye with injected sclera and bruising noted also on the lower eyelid and periorbital region. Neck: Supple. Lungs: Basal crackles, left more than right. Heart: S1, S2. Regular. Abdomen: Soft, nontender. Bowel sounds present. Extremities: No edema. Right buttock with 2 distal wounds, 1 with slough and 1 with granulation tissue. Laboratory Data: Shows WBC 5.9, hemoglobin 9.8, platelets are 141. Chemistry shows sodium 138, potassium 4.4, chloride 110, bicarb 24, BUN 32, creatinine 1.23, glucose is 110. Microdata; wound cultures are growing Pseudomonas aeruginosa and E coli ESBL and Augmentin, but as patient has start any cephalosporin or penicillin. Sputum culture is also positive for Pseudomonas aeruginosa ESBL. Patient is currently being treated with Zosyn. Assessment And Plan: 73-year-old male with longstanding history of chronic obstructive pulmonary disease and cardiac dysrhythmia, coming in after multiple hospitalizations including [facility], coming in with dysphagia to solids and liquids. Patient has possible infiltrate in his lungs with possible pneumonia, being treated with Zosyn acetic acid combined to his ulceration and keep wound site on daily basis. Continue supportive care and wound care. Continue current medication. Thrombocytopenia with his chronic conditions. We will follow the patient closely. Thank you Dr. Ortez for consult. NF/MODL Voice ID: [id number] Report ID: [id number] MTDD
[2019-04-26] MEDS: MEDIHONEY 44 ML TOPICAL TUBE TOP SCH (16:16)
--- NOTE | 2019-04-26 20:07 | PN ---
Subjective: Patient is lying in bed. No new acute event. Chart reviewed. Denies any headache, harsh sea, vomiting, chest pain, abdominal pain, constipation, or diarrhea. Objective: Vital Signs: Temperature 97, pulse 93, respiration 20, blood pressure 148/96. Lungs: Basal crackles. Heart: S1, S2. Regular. Abdomen: Soft, nontender. Bowel sounds present. Extremity: No edema. Laboratory Data: WBC 6.8, hemoglobin 9.9, platelets are 190. Chemistry shows sodium 139, potassium 3.8, chloride 108, bicarb 25, BUN 31, creatinine 1.4, glucose 120. Micro data, Pseudomonas aeruginosa in the sputum and Pseudomonas, E coli ESBL in the wound site. Assessment And Plan: Status post thoracentesis and extraction of pleural effusions. Patient is feel ing better. Pseudomonas pneumonia and Pseudomonas and Escherichia coli right buttock wounds. Contin ue acetic acid to the wound site. Continue Zosyn for now. We will follow patient as needed. DARIEL/AUSTIN Voice ID: [id number] Report ID: [id number]
[2019-04-26] MEDS: CYCLOBENZAPRINE 10 MG TAB PO SCH (20:42)
[2019-04-27] MEDS: PIPER/TAZO/NS 3.375gm 3.375 GM/100 ML BAG IVPB SCH ×3 (00:40→17:15)
[2019-04-27] MEDS: ALBUTEROL 2.5 MG/3 ML NEB SOL NEB SCH ×4 (02:00→20:00)
[2019-04-27] MEDS: IPRATROPIUM BROM 0.5MG/2.5ML NEB SCH ×6 (03:57→20:00)
[2019-04-27] MEDS: HYDROCODONE/APAP 5/325 MG TAB PO PRN ×2 (04:21→11:08)
[2019-04-27 05:51] LABS: Magnesium 1.9 mg/dL (1.8-2.4); Potassium 3.3 mmol/L (3.5-5.1)
[2019-04-27] MEDS: INSULIN -REGULAR HUMAN 50 UNIT/0.5 ML ML SQ SCH ×4 (07:30→20:51)
[2019-04-27] MEDS ORDERED: POTASSIUM CL SA 10 MEQ TAB PO ONE ×2 (08:00→17:00)
[2019-04-27] MEDS: BUDESONIDE IH SCH ×2 (09:00→20:46)
[2019-04-27] MEDS: HOME MED 1 EA UNK (Tiotropium Bromide [Spiriva Respimat] 1 PUFF) IH SCH ×2 (09:00→20:46)
[2019-04-27] MEDS: FUROSEMIDE 40 MG/4 ML VIAL IV SCH ×2 (09:12→17:16)
[2019-04-27] MEDS: AMIODARONE HCL 200 MG TAB PO SCH ×2 (09:12→20:50)
[2019-04-27] MEDS: GLUCERNA SHAKE 237 ML CAN PO SCH ×2 (09:13→20:51)
[2019-04-27] MEDS: JUVEN PACKET PO SCH ×2 (09:13→20:51)
--- NOTE | 2019-04-27 10:55 | P.PN ---
Subjective Date of Service: 04/27/19 Chief Complaint: Generalized weakness, inability to swallow. Subjective: No new changes, Tolerating diet, Working w/ PT (unable to leave yesterday due to prison decisison not to acept him due to IV zosyn use) Review of Systems Unremarkable Physical Examination - Vital Signs Temperature: 98.9 F Blood Pressure: 151/87 Pulse: 79 Respirations: 18 Pulse Ox (%): 95 - Physical Exam General: Alert, In no apparent distress (on 02 ) HEENT: Atraumatic, Normocephalic Neck: 2+ carotid pulse no bruit, JVD not distended Respiratory: Normal air movement, Crackles/rales (improving ) Cardiovascular: No edema, Normal pulses, Regular rate/rhythm, Normal S1 S2 Gastrointestinal: Normal bowel sounds, Soft and benign Neurological: Normal speech, Sensation intact - Studies Laboratory Last Values WBC 6.8 K/uL (4.3-10.9) D 04/25/19 06:10 RBC 2.95 M/uL (4.33-5.43) L 04/25/19 06:10 Hgb 9.9 g/dL (13.6-17.9) L 04/25/19 06:10 Hct 29.5 % (39.6-49.0) L 04/25/19 06:10 MCV 100.0 fL (80-100) 04/25/19 06:10 MCH 33.5 pg (27.0-35.0) 04/25/19 06:10 MCHC 33.5 g/dL (32.0-36.0) 04/25/19 06:10 RDW 18.0 % (12.1-15.2) H 04/25/19 06:10 Plt Count 190 K/uL (152-406) D 04/25/19 06:10 MPV 9.2 fL (7.6-11.3) 04/25/19 06:10 Neutrophils % 48.1 % (41.7-73.7) 04/25/19 06:10 Lymphocytes % 36.6 % (15.3-44.8) 04/25/19 06:10 Monocytes % 13.3 % (3.3-12.3) H 04/25/19 06:10 Eosinophils % 0.5 % (0-4.4) 04/25/19 06:10 Basophils % 1.5 % (0-1.3) H 04/25/19 06:10 Absolute Neutrophils 3.3 K/uL (1.8-8.0) 04/25/19 06:10 Segmented Neutrophils 47 % (40-80) 04/23/19 05:30 Band Neutrophils INSURANCE VERIFIER 04/23/19 05:30 Absolute Lymphocytes 2.5 K/uL (0.7-4.9) 04/25/19 06:10 Lymphocytes 31 % (15-42) 04/23/19 05:30 Monocytes 19 % (0-10) H 04/23/19 05:30 Eosinophils 1 % (0-3) 04/17/19 05:48 Absolute Monocytes 0.9 K/uL (0.1-1.3) 04/25/19 06:10 Absolute Eosinophils 0.0 K/uL (0-0.5) 04/25/19 06:10 Basophils 1 % (0-1) 04/23/19 05:30 Absolute Basophils 0.1 K/uL (0-0.5) 04/25/19 06:10 Metamyelocytes 1 % (0-0) H 04/23/19 05:30 Myelocytes 1 % (0-0) H 04/23/19 05:30 Giant Platelets Present 04/23/19 05:30 Poikilocytosis 1+ 04/22/19 06:00 Anisocytosis 1+ 04/23/19 05:30 Elliptocytes 1+ 04/22/19 06:00 Schistocytes 1+ 04/22/19 06:00 Morphology Comment Noted (NOT SEEN) 04/23/19 05:30 PT 13.3 SECONDS (9.5-12.5) H 04/19/19 13:04 INR 1.13 04/19/19 13:04 APTT 35.3 SECONDS (24.3-36.9) 04/19/19 13:04 Sodium 148 mmol/L (136-145) H 04/27/19 05:20 Potassium 3.3 mmol/L (3.5-5.1) L 04/27/19 05:20 Chloride 114 mmol/L (98-107) H 04/27/19 05:20 Carbon Dioxide 26 mmol/L (21-32) 04/27/19 05:20 BUN 28 mg/dL (7-18) H 04/27/19 05:20 Creatinine 1.38 mg/dL (0.55-1.3) H 04/27/19 05:20 Estimated GFR 51 mL/min (=/>90) L 04/27/19 05:20 Glucose 80 mg/dL (74-106) 04/27/19 05:20 POC Glucose 73 mg/dl (65-120) 04/27/19 08:24 Lactic Acid 2.6 mmol/L (0.4-2.0) H 04/16/19 20:10 Calcium 7.1 mg/dL (8.5-10.1) L 04/27/19 05:20 Phosphorus 3.0 mg/dL (2.5-4.9) 04/24/19 16:30 Magnesium 1.9 mg/dL (1.8-2.4) 04/27/19 05:20 Total Bilirubin 1.1 mg/dL (0.2-1.0) H 04/16/19 16:32 Direct Bilirubin 0.6 mg/dL (0-0.2) H 04/16/19 16:32 AST 45 U/L (15-37) H 04/16/19 16:32 ALT 32 U/L (12-78) 04/16/19 16:32 Alkaline Phosphatase 227 U/L (45-117) H 04/16/19 16:32 Rapid Troponin I < 0.02 ng/mL (0.0-0.045) 04/16/19 16:32 NT-Pro-B Natriuret Pep 7416 pg/mL (<125) H 04/16/19 16:32 Serum Total Protein 4.8 g/dL (6.4-8.2) L 04/16/19 16:32 Albumin 2.2 g/dL (3.4-5.0) L 04/16/19 16:32 Globulin 2.6 g/dL (2.3-3.5) 04/16/19 16:32 Albumin/Globulin Ratio 0.8 (1.1-1.8) L 04/16/19 16:32 Triglycerides 118 mg/dL (<150) 04/17/19 07:06 Cholesterol 110 mg/dL (<200) 04/17/19 07:06 LDL Cholesterol, Calc 64 (<130) 04/17/19 07:06 HDL Cholesterol 22 mg/dL (40-60) L 04/17/19 07:06 Cholesterol/HDL Ratio 5.00 04/17/19 07:06 Lipase 51 U/L (73-393) L 04/16/19 16:32 TSH 2.440 uIU/mL (0.360-3.740) 04/17/19 07:06 Urine Color Yellow 04/16/19 22:55 Urine Appearance Clear 04/16/19 22:55 Urine pH 5.5 (5.0-7.0) 04/16/19 22:55 Ur Specific [place] 1.015 (1.005-1.030) 04/16/19 22:55 Urine Ketones Negative (NEG) 04/16/19 22:55 Urine Blood Negative (NEG) 04/16/19 22:55 Urine Nitrite Negative (NEG) 04/16/19 22:55 Urine Bilirubin Negative (NEG) 04/16/19 22:55 Urine Urobilinogen 0.2 mg/dL (0.2-1.0) 04/16/19 22:55 Ur Leukocyte Esterase Negative (NEG) 04/16/19 22:55 Urine RBC <5 /HPF (NONE SEEN) 04/16/19 22:55 Urine WBC <5 /HPF (<5) 04/16/19 22:55 Ur Squamous Epith Cells <5 /HPF (NONE SEEN) 04/16/19 22:55 Urine Bacteria 20-50 /HPF (NONE SEEN) H 04/16/19 22:55 Hyaline Casts 0-5 /LPF (NONE SEEN) 04/16/19 22:55 Urine Culture Reflexed Not needed 04/16/19 22:55 Urine Glucose Negative (NEG) 04/16/19 22:55 Urine Total Protein Trace (NEG) 04/16/19 22:55 Fluid Source Peritoneal 04/19/19 10:15 Fluid Color Yellow (COLORLESS) H 04/19/19 10:15 Fluid Appearance Clear (CLEAR) 04/19/19 10:15 Fld Supernatant Color INSURANCE VERIFIER 04/19/19 10:15 Fluid WBC 138 /mm^3 04/19/19 10:15 Fluid RBC 45 /mm^3 04/19/19 10:15 Fluid Neutrophils 1 % 04/19/19 10:15 Fluid Lymphocytes 80 % 04/19/19 10:15 Fluid Mononuclear Cell 19 % 04/19/19 10:15 Miscellaneous Test Sent 04/18/19 10:15 Medications List Reviewed: Yes Assessment & Plan - Problems (Diagnosis) (1) Acute renal failure Current Visit: Yes Status: Acute (2) Anemia Current Visit: Yes Status: Acute (3) Aspiration pneumonia Current Visit: Yes Status: Acute (4) Infected wound Current Visit: Yes Status: Acute (5) Moderate protein-calorie malnutrition Current Visit: Yes Status: Acute (6) Pancreatic cancer Current Visit: Yes Status: Acute (7) Pulmonary nodules Current Visit: Yes Status: Acute (8) Sacral decubitus ulcer, stage II Current Visit: Yes Status: Acute (9) Atrial fibrillation Current Visit: Yes Status: Chronic Physician Review: Patient Assessed, Agree with Above Assessment and Plan Physician Review Additional Text: # Aspiration pna - on zoysn , c/w abx for total of 14 days course # Sacral decub with psuedomonas ESBL - s/p evaluated by ID, on acetic acid dsg # Liver cirrhosis with recurrent Ascites - improving , s/p tap yesterday -c/w diuretics # Anemia- stable # Dysphagia with ENT findings of cricopharyngeal dysfunction and possible injection with botox for therapy -pt refused but tolerating po well now Dispo - d/w with case mgt again , making attempts to get another NH to accept patient
[2019-04-27] MEDS: MEDIHONEY 44 ML TOPICAL TUBE TOP SCH (17:22)
[2019-04-27] MEDS: CYCLOBENZAPRINE 10 MG TAB PO SCH (20:50)
[2019-04-28] MEDS: PIPER/TAZO/NS 3.375gm 3.375 GM/100 ML BAG IVPB SCH ×3 (00:25→16:53)
[2019-04-28] MEDS: HYDROCODONE/APAP 5/325 MG TAB PO PRN ×4 (00:26→23:25)
[2019-04-28 05:06] LABS: Absolute Lymphocytes (CBC) 4.6 K/uL (0.7-4.9); Basophils % 0.6 % (0-1.3); Hematocrit 31.6 % (39.6-49.0); MPV 8.5 fL (7.6-11.3); RBC Red Blood Cell Count 3.09 M/uL (4.33-5.43)
[2019-04-28 05:21] LABS: Albumin 1.7 g/dL (3.4-5.0); Bilirubin Total 0.5 mg/dL (0.2-1.0); Magnesium 1.9 mg/dL (1.8-2.4); Phosphorus 3.7 mg/dL (2.5-4.9); Protein, Total 4.6 g/dL (6.4-8.2)
[2019-04-28] MEDS: INSULIN -REGULAR HUMAN 50 UNIT/0.5 ML ML SQ SCH ×4 (07:30→21:17)
[2019-04-28] MEDS: HOME MED 1 EA UNK (Tiotropium Bromide [Spiriva Respimat] 1 PUFF) IH SCH ×2 (09:00→20:34)
[2019-04-28] MEDS: BUDESONIDE IH SCH ×2 (09:00→20:33)
[2019-04-28] MEDS: GLUCERNA SHAKE 237 ML CAN PO SCH ×2 (09:05→21:16)
[2019-04-28] MEDS: JUVEN PACKET PO SCH ×2 (09:05→21:16)
[2019-04-28] MEDS: FUROSEMIDE 40 MG/4 ML VIAL IV SCH (09:06)
[2019-04-28] MEDS: AMIODARONE HCL 200 MG TAB PO SCH ×2 (09:06→21:19)
--- NOTE | 2019-04-28 10:26 | P.PN ---
Subjective Date of Service: 04/28/19 Chief Complaint: Generalized weakness, inability to swallow. Subjective: No new changes, Improving (still having gen body aches, daughter worried he is not participating with PT well) Review of Systems 10-point ROS is otherwise unremarkable Physical Examination - Vital Signs Temperature: 97.1 F Blood Pressure: 134/76 Pulse: 93 Respirations: 20 Pulse Ox (%): 94 - Physical Exam General: Alert, Oriented x3 HEENT: Atraumatic, Normocephalic Neck: 2+ carotid pulse no bruit, JVD not distended Respiratory: Clear to auscultation bilaterally, Crackles/rales, Rhonchi/gurgles Cardiovascular: No edema, Regular rate/rhythm Gastrointestinal: Normal bowel sounds, Soft and benign Neurological: Normal speech, Cranial nerves 3-12 intact - Studies Laboratory Last Values WBC 9.8 K/uL (4.3-10.9) D 04/28/19 04:35 RBC 3.09 M/uL (4.33-5.43) L 04/28/19 04:35 Hgb 10.5 g/dL (13.6-17.9) L 04/28/19 04:35 Hct 31.6 % (39.6-49.0) L 04/28/19 04:35 MCV 102.2 fL (80-100) H 04/28/19 04:35 MCH 34.0 pg (27.0-35.0) 04/28/19 04:35 MCHC 33.3 g/dL (32.0-36.0) 04/28/19 04:35 RDW 18.2 % (12.1-15.2) H 04/28/19 04:35 Plt Count 222 K/uL (152-406) 04/28/19 04:35 MPV 8.5 fL (7.6-11.3) 04/28/19 04:35 Neutrophils % 41.1 % (41.7-73.7) L 04/28/19 04:35 Lymphocytes % 47.0 % (15.3-44.8) H 04/28/19 04:35 Monocytes % 11.0 % (3.3-12.3) 04/28/19 04:35 Eosinophils % 0.3 % (0-4.4) 04/28/19 04:35 Basophils % 0.6 % (0-1.3) 04/28/19 04:35 Absolute Neutrophils 4.0 K/uL (1.8-8.0) 04/28/19 04:35 Segmented Neutrophils 47 % (40-80) 04/23/19 05:30 Band Neutrophils OUT AND OUT CIGAR MAKER HAND 04/23/19 05:30 Absolute Lymphocytes 4.6 K/uL (0.7-4.9) 04/28/19 04:35 Lymphocytes 31 % (15-42) 04/23/19 05:30 Monocytes 19 % (0-10) H 04/23/19 05:30 Eosinophils 1 % (0-3) 04/17/19 05:48 Absolute Monocytes 1.1 K/uL (0.1-1.3) 04/28/19 04:35 Absolute Eosinophils 0.0 K/uL (0-0.5) 04/28/19 04:35 Basophils 1 % (0-1) 04/23/19 05:30 Absolute Basophils 0.1 K/uL (0-0.5) 04/28/19 04:35 Metamyelocytes 1 % (0-0) H 04/23/19 05:30 Myelocytes 1 % (0-0) H 04/23/19 05:30 Giant Platelets Present 04/23/19 05:30 Poikilocytosis 1+ 04/22/19 06:00 Anisocytosis 1+ 04/23/19 05:30 Elliptocytes 1+ 04/22/19 06:00 Schistocytes 1+ 04/22/19 06:00 Morphology Comment Noted (NOT SEEN) 04/23/19 05:30 PT 13.3 SECONDS (9.5-12.5) H 04/19/19 13:04 INR 1.13 04/19/19 13:04 APTT 35.3 SECONDS (24.3-36.9) 04/19/19 13:04 Sodium 141 mmol/L (136-145) 04/28/19 04:35 Potassium 4.0 mmol/L (3.5-5.1) 04/28/19 04:35 Chloride 109 mmol/L (98-107) H 04/28/19 04:35 Carbon Dioxide 24 mmol/L (21-32) 04/28/19 04:35 BUN 28 mg/dL (7-18) H 04/28/19 04:35 Creatinine 1.54 mg/dL (0.55-1.3) H 04/28/19 04:35 Estimated GFR 45 mL/min (=/>90) L 04/28/19 04:35 Glucose 79 mg/dL (74-106) 04/28/19 04:35 POC Glucose 77 mg/dl (65-120) 04/28/19 08:02 Lactic Acid 2.6 mmol/L (0.4-2.0) H 04/16/19 20:10 Calcium 7.5 mg/dL (8.5-10.1) L 04/28/19 04:35 Phosphorus 3.7 mg/dL (2.5-4.9) 04/28/19 04:35 Magnesium 1.9 mg/dL (1.8-2.4) 04/28/19 04:35 Total Bilirubin 0.5 mg/dL (0.2-1.0) 04/28/19 04:35 Direct Bilirubin 0.6 mg/dL (0-0.2) H 04/16/19 16:32 AST 60 U/L (15-37) H 04/28/19 04:35 ALT 39 U/L (12-78) 04/28/19 04:35 Alkaline Phosphatase 297 U/L (45-117) H 04/28/19 04:35 Rapid Troponin I < 0.02 ng/mL (0.0-0.045) 04/16/19 16:32 NT-Pro-B Natriuret Pep 7416 pg/mL (<125) H 04/16/19 16:32 Serum Total Protein 4.6 g/dL (6.4-8.2) L 04/28/19 04:35 Albumin 1.7 g/dL (3.4-5.0) L 04/28/19 04:35 Globulin 2.9 g/dL (2.3-3.5) 04/28/19 04:35 Albumin/Globulin Ratio 0.6 (1.1-1.8) L 04/28/19 04:35 Triglycerides 118 mg/dL (<150) 04/17/19 07:06 Cholesterol 110 mg/dL (<200) 04/17/19 07:06 LDL Cholesterol, Calc 64 (<130) 04/17/19 07:06 HDL Cholesterol 22 mg/dL (40-60) L 04/17/19 07:06 Cholesterol/HDL Ratio 5.00 04/17/19 07:06 Lipase 51 U/L (73-393) L 04/16/19 16:32 TSH 2.440 uIU/mL (0.360-3.740) 04/17/19 07:06 Urine Color Yellow 04/16/19 22:55 Urine Appearance Clear 04/16/19 22:55 Urine pH 5.5 (5.0-7.0) 04/16/19 22:55 Ur Specific [place] 1.015 (1.005-1.030) 04/16/19 22:55 Urine Ketones Negative (NEG) 04/16/19 22:55 Urine Blood Negative (NEG) 04/16/19 22:55 Urine Nitrite Negative (NEG) 04/16/19 22:55 Urine Bilirubin Negative (NEG) 04/16/19 22:55 Urine Urobilinogen 0.2 mg/dL (0.2-1.0) 04/16/19 22:55 Ur Leukocyte Esterase Negative (NEG) 04/16/19 22:55 Urine RBC <5 /HPF (NONE SEEN) 04/16/19 22:55 Urine WBC <5 /HPF (<5) 04/16/19 22:55 Ur Squamous Epith Cells <5 /HPF (NONE SEEN) 04/16/19 22:55 Urine Bacteria 20-50 /HPF (NONE SEEN) H 04/16/19 22:55 Hyaline Casts 0-5 /LPF (NONE SEEN) 04/16/19 22:55 Urine Culture Reflexed Not needed 04/16/19 22:55 Urine Glucose Negative (NEG) 04/16/19 22:55 Urine Total Protein Trace (NEG) 04/16/19 22:55 Fluid Source Peritoneal 04/19/19 10:15 Fluid Color Yellow (COLORLESS) H 04/19/19 10:15 Fluid Appearance Clear (CLEAR) 04/19/19 10:15 Fld Supernatant Color OUT AND OUT CIGAR MAKER HAND 04/19/19 10:15 Fluid WBC 138 /mm^3 04/19/19 10:15 Fluid RBC 45 /mm^3 04/19/19 10:15 Fluid Neutrophils 1 % 04/19/19 10:15 Fluid Lymphocytes 80 % 04/19/19 10:15 Fluid Mononuclear Cell 19 % 04/19/19 10:15 Miscellaneous Test Sent 04/18/19 10:15 Medications List Reviewed: Yes Assessment & Plan - Problems (Diagnosis) (1) Acute renal failure Current Visit: Yes Status: Acute (2) Anemia Current Visit: Yes Status: Acute (3) Aspiration pneumonia Current Visit: Yes Status: Acute (4) Infected wound Current Visit: Yes Status: Acute (5) Moderate protein-calorie malnutrition Current Visit: Yes Status: Acute (6) Pancreatic cancer Current Visit: Yes Status: Acute (7) Pulmonary nodules Current Visit: Yes Status: Acute (8) Sacral decubitus ulcer, stage II Current Visit: Yes Status: Acute (9) Atrial fibrillation Current Visit: Yes Status: Chronic Physician Review: Patient Assessed, Agree with Above Assessment and Plan Physician Review Additional Text: # Aspiration pna - improving , on decreasing need -c/w to wean 02 -on zoysn - plan for next 2 days to complete course -c/w mucolytics and nebs prn # Sacral decub with psuedomonas ESBL - on therapy ,s/p evaluated by ID, on acetic acid dsg # Liver cirrhosis with recurrent Ascites - improving , s/p tap 04/26 -c/w diuretics # Anemia- stable # Dysphagia with ENT findings of cricopharyngeal dysfunction and possible injection with botox for therapy -pt refused but tolerating po well now # Weakness- c/we PT, follow plan for SNF - start OOB to chair today Dispo - d/w with case bennett
[2019-04-28] MEDS: MEDIHONEY 44 ML TOPICAL TUBE TOP SCH (12:41)
[2019-04-28] MEDS: TORSEMIDE 20 MG TAB PO SCH (21:19)
[2019-04-28] MEDS: CYCLOBENZAPRINE 10 MG TAB PO SCH (21:19)
[2019-04-28] MEDS ORDERED: NA CHLORIDE 0.9% 250 ML ONE (22:28)
[2019-04-29] MEDS: PIPER/TAZO/NS 3.375gm 3.375 GM/100 ML BAG IVPB SCH ×3 (00:10→17:22)
[2019-04-29 05:06] LABS: Absolute Lymphocytes (CBC) 1.9 K/uL (0.7-4.9); Basophils % 0.3 % (0-1.3); Hematocrit 25.4 % (39.6-49.0); Lymphocytes % 30.4 % (15.3-44.8); MPV 8.7 fL (7.6-11.3); RBC Red Blood Cell Count 2.55 M/uL (4.33-5.43)
[2019-04-29 05:58] LABS: Blood Morphology Comment NOT SEEN (NOT SEEN); Platelet Estimate ADEQ
[2019-04-29] MEDS: INSULIN -REGULAR HUMAN 50 UNIT/0.5 ML ML SQ SCH ×4 (07:30→20:44)
[2019-04-29] MEDS: HYDROCODONE/APAP 5/325 MG TAB PO PRN ×3 (07:59→20:05)
[2019-04-29] MEDS: AMIODARONE HCL 200 MG TAB PO SCH ×2 (07:59→20:05)
[2019-04-29] MEDS: TORSEMIDE 20 MG TAB PO SCH ×2 (07:59→20:44)
[2019-04-29] MEDS: JUVEN PACKET PO SCH ×2 (08:00→20:12)
[2019-04-29] MEDS: GLUCERNA SHAKE 237 ML CAN PO SCH ×2 (08:00→20:12)
[2019-04-29] MEDS: HOME MED 1 EA UNK (Tiotropium Bromide [Spiriva Respimat] 1 PUFF) IH SCH ×2 (08:47→19:35)
[2019-04-29] MEDS: BUDESONIDE IH SCH ×2 (08:47→19:34)
--- NOTE | 2019-04-29 11:04 | P.PN ---
Subjective Date of Service: 04/29/19 Chief Complaint: Generalized weakness, inability to swallow. Subjective: No new changes (poorly working with PT -seen , still multiple joint pains with shoulder, elbow and back pain -states pain limit his moving OOB to chair -PT team d/w) Review of Systems Unremarkable Physical Examination - Vital Signs Temperature: 98.3 F Blood Pressure: 140/80 Pulse: 82 Respirations: 18 Pulse Ox (%): 98 - Physical Exam General: Alert, Oriented x3 HEENT: Atraumatic, Normocephalic, PERRLA Neck: Supple, JVD not distended Respiratory: Normal air movement, Rhonchi/gurgles Cardiovascular: Normal pulses, Regular rate/rhythm, Normal S1 S2 Gastrointestinal: Normal bowel sounds, Soft and benign Musculoskeletal: No clubbing, No swelling Integumentary: No rashes, No breakdown Neurological: Normal gait, Normal speech, Abnormal tone - Studies Laboratory Last Values WBC 6.2 K/uL (4.3-10.9) D 04/29/19 04:30 RBC 2.55 M/uL (4.33-5.43) L 04/29/19 04:30 Hgb 8.5 g/dL (13.6-17.9) L 04/29/19 04:30 Hct 25.4 % (39.6-49.0) L D 04/29/19 04:30 MCV 99.4 fL (80-100) 04/29/19 04:30 MCH 33.3 pg (27.0-35.0) 04/29/19 04:30 MCHC 33.5 g/dL (32.0-36.0) 04/29/19 04:30 RDW 18.2 % (12.1-15.2) H 04/29/19 04:30 Plt Count 207 K/uL (152-406) 04/29/19 04:30 MPV 8.7 fL (7.6-11.3) 04/29/19 04:30 Neutrophils % 53.7 % (41.7-73.7) 04/29/19 04:30 Lymphocytes % 30.4 % (15.3-44.8) 04/29/19 04:30 Monocytes % 15.0 % (3.3-12.3) H 04/29/19 04:30 Eosinophils % 0.6 % (0-4.4) 04/29/19 04:30 Basophils % 0.3 % (0-1.3) 04/29/19 04:30 Absolute Neutrophils 3.3 K/uL (1.8-8.0) 04/29/19 04:30 Segmented Neutrophils 48 % (40-80) 04/29/19 04:30 Band Neutrophils DAMAGE INSIDE ADJUSTER 04/23/19 05:30 Absolute Lymphocytes 1.9 K/uL (0.7-4.9) 04/29/19 04:30 Lymphocytes 31 % (15-42) 04/29/19 04:30 Monocytes 11 % (0-10) H 04/29/19 04:30 Eosinophils 1 % (0-3) 04/17/19 05:48 Absolute Monocytes 0.9 K/uL (0.1-1.3) 04/29/19 04:30 Absolute Eosinophils 0.0 K/uL (0-0.5) 04/29/19 04:30 Basophils 1 % (0-1) 04/23/19 05:30 Absolute Basophils 0.0 K/uL (0-0.5) 04/29/19 04:30 Metamyelocytes 1 % (0-0) H 04/23/19 05:30 Myelocytes 1 % (0-0) H 04/23/19 05:30 Reactive Lymphocytes 10 % 04/29/19 04:30 Giant Platelets Present 04/23/19 05:30 Poikilocytosis 1+ 04/22/19 06:00 Anisocytosis 1+ 04/23/19 05:30 Elliptocytes 1+ 04/22/19 06:00 Schistocytes 1+ 04/22/19 06:00 Morphology Comment Not seen (NOT SEEN) 04/29/19 04:30 PT 13.3 SECONDS (9.5-12.5) H 04/19/19 13:04 INR 1.13 04/19/19 13:04 APTT 35.3 SECONDS (24.3-36.9) 04/19/19 13:04 Sodium 141 mmol/L (136-145) 04/28/19 04:35 Potassium 4.0 mmol/L (3.5-5.1) 04/28/19 04:35 Chloride 109 mmol/L (98-107) H 04/28/19 04:35 Carbon Dioxide 24 mmol/L (21-32) 04/28/19 04:35 BUN 28 mg/dL (7-18) H 04/28/19 04:35 Creatinine 1.54 mg/dL (0.55-1.3) H 04/28/19 04:35 Estimated GFR 45 mL/min (=/>90) L 04/28/19 04:35 Glucose 79 mg/dL (74-106) 04/28/19 04:35 POC Glucose 70 mg/dl (65-120) 04/29/19 08:28 Lactic Acid 2.6 mmol/L (0.4-2.0) H 04/16/19 20:10 Calcium 7.5 mg/dL (8.5-10.1) L 04/28/19 04:35 Phosphorus 3.7 mg/dL (2.5-4.9) 04/28/19 04:35 Magnesium 1.9 mg/dL (1.8-2.4) 04/28/19 04:35 Total Bilirubin 0.5 mg/dL (0.2-1.0) 04/28/19 04:35 Direct Bilirubin 0.6 mg/dL (0-0.2) H 04/16/19 16:32 AST 60 U/L (15-37) H 04/28/19 04:35 ALT 39 U/L (12-78) 04/28/19 04:35 Alkaline Phosphatase 297 U/L (45-117) H 04/28/19 04:35 Rapid Troponin I < 0.02 ng/mL (0.0-0.045) 04/16/19 16:32 NT-Pro-B Natriuret Pep 7416 pg/mL (<125) H 04/16/19 16:32 Serum Total Protein 4.6 g/dL (6.4-8.2) L 04/28/19 04:35 Albumin 1.7 g/dL (3.4-5.0) L 04/28/19 04:35 Globulin 2.9 g/dL (2.3-3.5) 04/28/19 04:35 Albumin/Globulin Ratio 0.6 (1.1-1.8) L 04/28/19 04:35 Triglycerides 118 mg/dL (<150) 04/17/19 07:06 Cholesterol 110 mg/dL (<200) 04/17/19 07:06 LDL Cholesterol, Calc 64 (<130) 04/17/19 07:06 HDL Cholesterol 22 mg/dL (40-60) L 04/17/19 07:06 Cholesterol/HDL Ratio 5.00 04/17/19 07:06 Lipase 51 U/L (73-393) L 04/16/19 16:32 TSH 2.440 uIU/mL (0.360-3.740) 04/17/19 07:06 Urine Color Yellow 04/16/19 22:55 Urine Appearance Clear 04/16/19 22:55 Urine pH 5.5 (5.0-7.0) 04/16/19 22:55 Ur Specific [place] 1.015 (1.005-1.030) 04/16/19 22:55 Urine Ketones Negative (NEG) 04/16/19 22:55 Urine Blood Negative (NEG) 04/16/19 22:55 Urine Nitrite Negative (NEG) 04/16/19 22:55 Urine Bilirubin Negative (NEG) 04/16/19 22:55 Urine Urobilinogen 0.2 mg/dL (0.2-1.0) 04/16/19 22:55 Ur Leukocyte Esterase Negative (NEG) 04/16/19 22:55 Urine RBC <5 /HPF (NONE SEEN) 04/16/19 22:55 Urine WBC <5 /HPF (<5) 04/16/19 22:55 Ur Squamous Epith Cells <5 /HPF (NONE SEEN) 04/16/19 22:55 Urine Bacteria 20-50 /HPF (NONE SEEN) H 04/16/19 22:55 Hyaline Casts 0-5 /LPF (NONE SEEN) 04/16/19 22:55 Urine Culture Reflexed Not needed 04/16/19 22:55 Urine Glucose Negative (NEG) 04/16/19 22:55 Urine Total Protein Trace (NEG) 04/16/19 22:55 Fluid Source Peritoneal 04/19/19 10:15 Fluid Color Yellow (COLORLESS) H 04/19/19 10:15 Fluid Appearance Clear (CLEAR) 04/19/19 10:15 Fld Supernatant Color DAMAGE INSIDE ADJUSTER 04/19/19 10:15 Fluid WBC 138 /mm^3 04/19/19 10:15 Fluid RBC 45 /mm^3 04/19/19 10:15 Fluid Neutrophils 1 % 04/19/19 10:15 Fluid Lymphocytes 80 % 04/19/19 10:15 Fluid Mononuclear Cell 19 % 04/19/19 10:15 Miscellaneous Test Sent 04/18/19 10:15 Medications List Reviewed: Yes Assessment & Plan - Problems (Diagnosis) (1) Acute renal failure Current Visit: Yes Status: Acute (2) Anemia Current Visit: Yes Status: Acute (3) Aspiration pneumonia Current Visit: Yes Status: Acute (4) Infected wound Current Visit: Yes Status: Acute (5) Moderate protein-calorie malnutrition Current Visit: Yes Status: Acute (6) Pancreatic cancer Current Visit: Yes Status: Acute (7) Pulmonary nodules Current Visit: Yes Status: Acute (8) Sacral decubitus ulcer, stage II Current Visit: Yes Status: Acute (9) Atrial fibrillation Current Visit: Yes Status: Chronic Physician Review: Patient Assessed, Agree with Above Assessment and Plan Physician Review Additional Text: # Aspiration pna - still improving , - 02 down to 4 L , continue to wean -continue zosyn for 1 more day to complete 2 weeks course of abx -c/w mucolytics and nebs prn # Sacral decub with psuedomonas ESBL - on therapy , on acetic acid dsg # Liver cirrhosis with recurrent Ascites - improving , s/p tap 04/26 -c/w diuretics # Anemia- stable at 8.5 # Dysphagia with ENT findings of cricopharyngeal dysfunction and possible injection with botox for therapy -pt refused but tolerating po well now # Weakness- c/w, advised to start OOB to chair today Dispo - d/w with case mgt
[2019-04-29] MEDS ORDERED: BUMETANIDE 1 MG/4 ML VIAL IV ONE (11:07)
[2019-04-29 12:34] LABS: Ferritin 2111.1 ng/mL (26-388)
--- NOTE | 2019-04-29 16:40 | PN ---
Subjective: Patient is lying in easy chair. Daughter by the bedside, not in any acute distress. De nies any headache, nausea, vomiting, chest pain, abdominal pain, constipation, or diarrhea. Objective: Vital Signs: Temperature 98.3, pulse 82, respirations 18, blood pressure 142/80. Lungs: Basal crackles. Heart: S1, S2. Regular. Abdomen: Soft, nontender. Bowel sounds present. Extremity: No edema. Right hip wound improving. Laboratory Data: WBC 6.2, hemoglobin 8.5, platelets are 207. Chemistry shows no new chemistry avail able today. Assessment And Plan: Second toe Pseudomonas infection and right buttock stage III wounds. Continue current treatment and offloading. We will follow the patient as needed. Possible change to Katya Sandoval for bedwetting. NF/MODL Voice ID: [id number] Report ID: [id number]
[2019-04-29] MEDS: MEDIHONEY 44 ML TOPICAL TUBE TOP SCH (17:00)
[2019-04-29] MEDS: CYCLOBENZAPRINE 10 MG TAB PO SCH (20:05)
[2019-04-30] MEDS: PIPER/TAZO/NS 3.375gm 3.375 GM/100 ML BAG IVPB SCH ×2 (00:13→08:16)
[2019-04-30] MEDS: HYDROCODONE/APAP 5/325 MG TAB PO PRN ×3 (01:56→14:14)
[2019-04-30 04:49] LABS: Absolute Lymphocytes (CBC) 1.5 K/uL (0.7-4.9); Basophils % 1.4 % (0-1.3); Hematocrit 27.7 % (39.6-49.0); Lymphocytes % 21.1 % (15.3-44.8); MPV 8.6 fL (7.6-11.3); RBC Red Blood Cell Count 2.75 M/uL (4.33-5.43)
[2019-04-30 05:26] LABS: Albumin 1.6 g/dL (3.4-5.0); Bilirubin Total 0.5 mg/dL (0.2-1.0); Magnesium 1.8 mg/dL (1.8-2.4); Potassium 3.3 mmol/L (3.5-5.1); Protein, Total 4.4 g/dL (6.4-8.2)
[2019-04-30] MEDS: KCL 20 MEQ/100 mL IVPB 20 MEQ/100 ML BAG IV SCH ×2 (05:59→08:15)
[2019-04-30] MEDS ORDERED: LACTULOSE 20 GM/30 ML UCUP PO PRN (06:57)
[2019-04-30] MEDS: INSULIN -REGULAR HUMAN 50 UNIT/0.5 ML ML SQ SCH ×4 (07:30→20:30)
[2019-04-30] MEDS: TORSEMIDE 20 MG TAB PO SCH ×2 (08:16→20:28)
[2019-04-30] MEDS: AMIODARONE HCL 200 MG TAB PO SCH ×2 (08:17→20:29)
[2019-04-30] MEDS: JUVEN PACKET PO SCH ×3 (08:19→20:29)
[2019-04-30] MEDS: GLUCERNA SHAKE 237 ML CAN PO SCH ×2 (08:19→20:31)
[2019-04-30] MEDS ORDERED: Meropenem 1000 MG/VIAL IV SCH (09:00)
[2019-04-30] MEDS ORDERED: PIPER/TAZO/NS 3.375gm 3.375 GM/100 ML BAG IVPB SCH (09:00)
[2019-04-30] MEDS: HOME MED 1 EA UNK (Tiotropium Bromide [Spiriva Respimat] 1 PUFF) IH SCH ×2 (09:00→21:00)
[2019-04-30] MEDS: BUDESONIDE IH SCH ×2 (09:00→21:00)
--- NOTE | 2019-04-30 09:06 | P.PN ---
Subjective Date of Service: 04/30/19 Primary Care Provider: [facility]; Onc-Dr. Martinez Chief Complaint: Generalized weakness, inability to swallow. Subjective: Improving (Patient improving. Some constipation noted.) Physical Examination - Vital Signs Temperature: 98.5 F Blood Pressure: 132/88 Pulse: 89 Respirations: 22 Pulse Ox (%): 98 - Physical Exam General: Alert, In no apparent distress, Oriented x3, Cooperative HEENT: Atraumatic Neck: Supple Respiratory: Clear to auscultation bilaterally, Normal air movement Cardiovascular: Normal pulses, Regular rate/rhythm Gastrointestinal: Normal bowel sounds, Soft and benign, Non-distended, No masses , No rebound, No guarding, Ascites (Minimal ascites) Musculoskeletal: No tenderness, No warmth Neurological: Normal speech, Normal strength at 5/5 x4 extr, Normal tone - Studies Medications List Reviewed: Yes Assessment & Plan Discharge Plan: Other (long-term facility) Plan to discharge in: 24 Hours Physician Review Additional Text: Impression: Aspiration pneumonia with sputum culture positive for Pseudomonas complicated with COPD Sacred a cubitus stage III with wound culture positive for Pseudomonas and E coli-ESBL Liver cirrhosis with recurrent ascites status post paracentesis Anemia of chronic disease Dysphagia with cricopharyngeal dysfunction Constipation Acute on chronic renal disease stage 3 Diabetes mellitus type 2 [id number] Atrial fibrillation not on chronic anti coagulation therapy Plan: Aspiration pneumonia with sputum culture positive for Pseudomonas complicated with COPD: Patient has done well. Patient remains on oxygen. Patient with COPD. Continue with COPD treatment. Patient has completed course of IV antibiotic therapy-Zosyn for 2 weeks. No need for further antibiotic therapy. Encourage incentive spirometer. Encourage ambulation. Will pursue skilled placement transfer. Sacral cubitus stage III with wound culture positive for Pseudomonas and E coli- ESBL: Case discussed at length with infectious disease. No further need for antibiotic therapy. Wound has improved significantly. Continue with current wound care. Liver cirrhosis with recurrent ascites status post paracentesis: Patient has received paracentesis. Continue diuretic therapy. Continue 1500 cc per day fluid restriction. Encourage ambulation. Anemia of chronic disease: Continue to monitor closely. Dysphagia with cricopharyngeal dysfunction: Will recommend GI and ENT evaluation as an outpatient. Constipation: Will provide medication including probiotic. Acute on chronic renal disease stage 3: Continue to monitor closely. Diabetes mellitus type 2 [id number]: Patient remains on Accu-Cheks and sliding scale. Continue to hold metformin due to renal dysfunction. Atrial fibrillation not on chronic anti coagulation therapy: Continue with amiodarone. Patient not on chronic anti coagulation therapy. Time Spent Managing Pts Care (In Minutes): 55
[2019-04-30] MEDS ORDERED: MAGNESIUM SULFATE 1 gm IVPB 1 GM/100 ML BAG IV ONE (10:00)
[2019-04-30] MEDS: LACTOBACILLUS/ACIDOPHILUS TAB PO SCH ×2 (10:27→20:27)
[2019-04-30] MEDS: MEDIHONEY 44 ML TOPICAL TUBE TOP SCH (15:18)
[2019-04-30] MEDS: TRAMADOL HCL 50 MG TAB PO PRN (16:34)
[2019-04-30] MEDS: HYDROCODONE/APAP 7.5/325 MG TAB PO PRN (20:21)
[2019-04-30] MEDS: CYCLOBENZAPRINE 10 MG TAB PO SCH (20:27)
[2019-05-01] MEDS: HYDROCODONE/APAP 7.5/325 MG TAB PO PRN ×3 (02:46→17:30)
[2019-05-01 05:14] LABS: Absolute Lymphocytes (CBC) 1.5 K/uL (0.7-4.9); Basophils % 0.6 % (0-1.3); Hematocrit 28.3 % (39.6-49.0); Lymphocytes % 20.4 % (15.3-44.8); MPV 8.7 fL (7.6-11.3); RBC Red Blood Cell Count 2.83 M/uL (4.33-5.43)
[2019-05-01 05:18] LABS: Magnesium 2.1 mg/dL (1.8-2.4); Potassium 4.1 mmol/L (3.5-5.1)
[2019-05-01] MEDS: INSULIN -REGULAR HUMAN 50 UNIT/0.5 ML ML SQ SCH ×4 (07:30→20:53)
[2019-05-01] MEDS: GLUCERNA SHAKE 237 ML CAN PO SCH ×2 (09:00→20:52)
[2019-05-01] MEDS: HOME MED 1 EA UNK (Tiotropium Bromide [Spiriva Respimat] 1 PUFF) IH SCH ×2 (09:00→21:00)
[2019-05-01] MEDS: JUVEN PACKET PO SCH ×2 (09:00→20:52)
[2019-05-01] MEDS: BUDESONIDE IH SCH ×2 (09:00→21:00)
[2019-05-01] MEDS: LACTULOSE 20 GM/30 ML UCUP PO SCH ×2 (09:42→20:52)
--- NOTE | 2019-05-01 09:44 | P.PN ---
Subjective Date of Service: 05/01/19 Primary Care Provider: [facility]; Onc-Dr. Martinez Chief Complaint: Generalized weakness, inability to swallow. Subjective: New changes (+ constipation , + abdominal distension) Review of Systems Unremarkable Physical Examination - Vital Signs Temperature: 99.2 F Blood Pressure: 130/81 Pulse: 88 Respirations: 21 Pulse Ox (%): 92 - Physical Exam General: Alert, Oriented x3 HEENT: Atraumatic, Normocephalic Neck: 2+ carotid pulse no bruit, JVD not distended Respiratory: Clear to auscultation bilaterally, Normal air movement Cardiovascular: No edema, Normal pulses, Regular rate/rhythm, Normal S1 S2 Gastrointestinal: Normal bowel sounds, No tenderness, Distended, Succussion splash, Hepatomegaly, Ascites Musculoskeletal: No clubbing, No swelling Integumentary: No rashes, No breakdown Neurological: Normal speech, Normal strength at 5/5 x4 extr - Studies Laboratory Last Values WBC 7.2 K/uL (4.3-10.9) 05/01/19 04:45 RBC 2.83 M/uL (4.33-5.43) L 05/01/19 04:45 Hgb 9.4 g/dL (13.6-17.9) L 05/01/19 04:45 Hct 28.3 % (39.6-49.0) L 05/01/19 04:45 MCV 99.8 fL (80-100) 05/01/19 04:45 MCH 33.3 pg (27.0-35.0) 05/01/19 04:45 MCHC 33.4 g/dL (32.0-36.0) 05/01/19 04:45 RDW 18.8 % (12.1-15.2) H 05/01/19 04:45 Plt Count 245 K/uL (152-406) D 05/01/19 04:45 MPV 8.7 fL (7.6-11.3) 05/01/19 04:45 Neutrophils % 67.0 % (41.7-73.7) 05/01/19 04:45 Lymphocytes % 20.4 % (15.3-44.8) 05/01/19 04:45 Monocytes % 11.9 % (3.3-12.3) 05/01/19 04:45 Eosinophils % 0.1 % (0-4.4) 05/01/19 04:45 Basophils % 0.6 % (0-1.3) 05/01/19 04:45 Absolute Neutrophils 4.8 K/uL (1.8-8.0) 05/01/19 04:45 Segmented Neutrophils 48 % (40-80) 04/29/19 04:30 Band Neutrophils SOFTWARE DEPLOYMENT ENGINEER 04/23/19 05:30 Absolute Lymphocytes 1.5 K/uL (0.7-4.9) 05/01/19 04:45 Lymphocytes 31 % (15-42) 04/29/19 04:30 Monocytes 11 % (0-10) H 04/29/19 04:30 Eosinophils 1 % (0-3) 04/17/19 05:48 Absolute Monocytes 0.9 K/uL (0.1-1.3) 05/01/19 04:45 Absolute Eosinophils 0.0 K/uL (0-0.5) 05/01/19 04:45 Basophils 1 % (0-1) 04/23/19 05:30 Absolute Basophils 0.0 K/uL (0-0.5) 05/01/19 04:45 Metamyelocytes 1 % (0-0) H 04/23/19 05:30 Myelocytes 1 % (0-0) H 04/23/19 05:30 Reactive Lymphocytes 10 % 04/29/19 04:30 Giant Platelets Present 04/23/19 05:30 Poikilocytosis 1+ 04/22/19 06:00 Anisocytosis 1+ 04/23/19 05:30 Elliptocytes 1+ 04/22/19 06:00 Schistocytes 1+ 04/22/19 06:00 Morphology Comment Not seen (NOT SEEN) 04/29/19 04:30 PT 13.3 SECONDS (9.5-12.5) H 04/19/19 13:04 INR 1.13 04/19/19 13:04 APTT 35.3 SECONDS (24.3-36.9) 04/19/19 13:04 Sodium 138 mmol/L (136-145) 05/01/19 04:45 Potassium 4.1 mmol/L (3.5-5.1) 05/01/19 04:45 Chloride 106 mmol/L (98-107) 05/01/19 04:45 Carbon Dioxide 26 mmol/L (21-32) 05/01/19 04:45 BUN 28 mg/dL (7-18) H 05/01/19 04:45 Creatinine 1.67 mg/dL (0.55-1.3) H 05/01/19 04:45 Estimated GFR 41 mL/min (=/>90) L 05/01/19 04:45 Glucose 111 mg/dL (74-106) H 05/01/19 04:45 POC Glucose 96 mg/dl (65-120) 05/01/19 08:12 Hemoglobin A1c 6.0 % (4.2-6.3) 04/30/19 09:09 Lactic Acid 2.6 mmol/L (0.4-2.0) H 04/16/19 20:10 Calcium 7.9 mg/dL (8.5-10.1) L 05/01/19 04:45 Phosphorus 3.7 mg/dL (2.5-4.9) 04/28/19 04:35 Magnesium 2.1 mg/dL (1.8-2.4) 05/01/19 04:45 Iron 53.0 ug/dL (65-175) L 04/29/19 11:52 TIBC 115 ug/dL (250-460) L 04/29/19 11:52 Transferrin 82 mg/dL (200-360) L 04/29/19 11:52 Transferrin % Sat 46.1 % (20.0-50.0) 04/29/19 11:52 Ferritin 2111.1 ng/mL (26-388) H 04/29/19 11:52 Total Bilirubin 0.5 mg/dL (0.2-1.0) 04/30/19 04:30 Direct Bilirubin 0.6 mg/dL (0-0.2) H 04/16/19 16:32 AST 58 U/L (15-37) H 04/30/19 04:30 ALT 40 U/L (12-78) 04/30/19 04:30 Alkaline Phosphatase 255 U/L (45-117) H 04/30/19 04:30 Rapid Troponin I < 0.02 ng/mL (0.0-0.045) 04/16/19 16:32 NT-Pro-B Natriuret Pep 2537 pg/mL (<125) H 04/29/19 11:52 Serum Total Protein 4.4 g/dL (6.4-8.2) L 04/30/19 04:30 Albumin 1.6 g/dL (3.4-5.0) L 04/30/19 04:30 Globulin 2.8 g/dL (2.3-3.5) 04/30/19 04:30 Albumin/Globulin Ratio 0.6 (1.1-1.8) L 04/30/19 04:30 Triglycerides 118 mg/dL (<150) 04/17/19 07:06 Cholesterol 110 mg/dL (<200) 04/17/19 07:06 LDL Cholesterol, Calc 64 (<130) 04/17/19 07:06 HDL Cholesterol 22 mg/dL (40-60) L 04/17/19 07:06 Cholesterol/HDL Ratio 5.00 04/17/19 07:06 Lipase 51 U/L (73-393) L 04/16/19 16:32 TSH 2.440 uIU/mL (0.360-3.740) 04/17/19 07:06 Urine Color Yellow 04/16/19 22:55 Urine Appearance Clear 04/16/19 22:55 Urine pH 5.5 (5.0-7.0) 04/16/19 22:55 Ur Specific [place] 1.015 (1.005-1.030) 04/16/19 22:55 Urine Ketones Negative (NEG) 04/16/19 22:55 Urine Blood Negative (NEG) 04/16/19 22:55 Urine Nitrite Negative (NEG) 04/16/19 22:55 Urine Bilirubin Negative (NEG) 04/16/19 22:55 Urine Urobilinogen 0.2 mg/dL (0.2-1.0) 04/16/19 22:55 Ur Leukocyte Esterase Negative (NEG) 04/16/19 22:55 Urine RBC <5 /HPF (NONE SEEN) 04/16/19 22:55 Urine WBC <5 /HPF (<5) 04/16/19 22:55 Ur Squamous Epith Cells <5 /HPF (NONE SEEN) 04/16/19 22:55 Urine Bacteria 20-50 /HPF (NONE SEEN) H 04/16/19 22:55 Hyaline Casts 0-5 /LPF (NONE SEEN) 04/16/19 22:55 Urine Culture Reflexed Not needed 04/16/19 22:55 Urine Glucose Negative (NEG) 04/16/19 22:55 Urine Total Protein Trace (NEG) 04/16/19 22:55 Fluid Source Peritoneal 04/19/19 10:15 Fluid Color Yellow (COLORLESS) H 04/19/19 10:15 Fluid Appearance Clear (CLEAR) 04/19/19 10:15 Fld Supernatant Color SOFTWARE DEPLOYMENT ENGINEER 04/19/19 10:15 Fluid WBC 138 /mm^3 04/19/19 10:15 Fluid RBC 45 /mm^3 04/19/19 10:15 Fluid Neutrophils 1 % 04/19/19 10:15 Fluid Lymphocytes 80 % 04/19/19 10:15 Fluid Mononuclear Cell 19 % 04/19/19 10:15 Miscellaneous Test Sent 04/18/19 10:15 Medications List Reviewed: Yes Assessment & Plan - Problems (Diagnosis) (1) Acute renal failure Current Visit: Yes Status: Acute (2) Anemia Current Visit: Yes Status: Acute (3) Aspiration pneumonia Current Visit: Yes Status: Acute (4) Infected wound Current Visit: Yes Status: Acute (5) Moderate protein-calorie malnutrition Current Visit: Yes Status: Acute (6) Pancreatic cancer Current Visit: Yes Status: Acute (7) Pulmonary nodules Current Visit: Yes Status: Acute (8) Sacral decubitus ulcer, stage II Current Visit: Yes Status: Acute (9) Atrial fibrillation Current Visit: Yes Status: Chronic Physician Review: Patient Assessed, Agree with Above Assessment and Plan Physician Review Additional Text: # Aspiration pna - still improving , completed zosyn course - 02 down to 4 L , continue to wean -c/w mucolytics and nebs prn # Ascities- on diuretics , no need for tap today # Constipation -start lactulose bid # Sacral decub with psuedomonas ESBL - on therapy , on acetic acid dsg # Liver cirrhosis with recurrent Ascites - improving , s/p tap 04/26 -c/w diuretics # Atrial fib - not on A/C # Anemia- improving to 9.4 # Dysphagia with ENT findings of cricopharyngeal dysfunction and possible injection with botox for therapy -pt refused but tolerating po well now # Weakness- follow plan for SNF
[2019-05-01] MEDS: TORSEMIDE 20 MG TAB PO SCH ×2 (10:17→20:52)
[2019-05-01] MEDS: LACTOBACILLUS/ACIDOPHILUS TAB PO SCH ×2 (10:17→20:51)
[2019-05-01] MEDS: AMIODARONE HCL 200 MG TAB PO SCH ×2 (10:17→20:52)
--- NOTE | 2019-05-01 14:30 | P.DS ---
Admission Date: 04/16/19 Discharge Date: 05/01/19 Primary Care Provider: [facility]; Onc-Dr. Martinez Disposition: TRANSFER TO SNF - MEDICAL Discharge Condition: FAIR Reason for Admission: Generalized weakness, inability to swallow. Consultations: Infectious disease-Dr. Juarez ENT-Dr. Felipe Opthalmology-Dr. Ramachandran Procedures: CT scan: FINDINGS: Small right-side and moderate left-side pleural effusions incompletely evaluated. Bilateral lower lobe atelectasis present. No cardiomegaly or pericardial effusion. Liver has a nodular capsular contour and is small in size. No focal liver lesions identifiable. No splenomegaly or suspicious splenic finding. No acute pancreatic process suspected. Gallbladder is not dilated. Gallbladder is isodense to the ascites that is present. No biliary tree dilatation. Left renal pelvic dilatation is present without obstructing calculus. And nonobstructing 7 mm calculus is present in the upper pole. No ureteral calculi seen. No right-sided hydronephrosis. No significant adrenal finding. Isodense renal masses and pyelonephritis cannot be excluded in the absence of IV contrast. Urinary bladder is mostly contracted. This accentuates wall thickness. Prostate gland is not enlarged. Stomach is distended by food. No dilated small bowel loops. Colon is not dilated. Patient has contrast in distal small bowel loops from earlier modified barium swallow. No free air or pneumatosis. Large volume of ascites present. No omental thickening. Patient has significant fluid retention in the subcutaneous fatty tissues. No bulky lymphadenopathy. A large infrarenal abdominal aortic aneurysm is present 3.9 cm AP x 4.6 cm TR. Assessment is limited in the absence of contrast. No iliac aneurysm. No suspicious bony findings. IMPRESSION: Large volume of ascites. Patient also has substantial subcutaneous fluid retention as well as small right-side and moderate left-side pleural effusions. No cardiomegaly is present. Anasarca pattern may not be cardiac in origin. Cirrhosis or diffuse hepatic parenchymal disease. No focal liver lesion. Provided history indicates pancreatic cancer. No pancreatic mass is identified. There may be postsurgical changes at the tail. Full assessment is limited is the absence of IV contrast. Impression: Aspiration pneumonia with sputum culture positive for Pseudomonas complicated with COPD Sacred a cubitus stage III with wound culture positive for Pseudomonas and E coli-ESBL Liver cirrhosis with recurrent ascites status post paracentesis Anemia of chronic disease Dysphagia with cricopharyngeal dysfunction Constipation Acute on chronic renal disease stage 3 Diabetes mellitus type 2 [id number] Atrial fibrillation not on chronic anti coagulation therapy Large infrarenal abdominal aortic aneurysm 3.9 cm x 4.6 cm Brief History of Present Illness: 74-year-old male with multiple medical problems presented with multiple complaints. Patient had cough, congestion and mild shortness of breath. Patient also had decubitus ulcer. Patient was admitted for further evaluation. Hospital Course: Patient presented cough, shortness of breath secondary to aspiration pneumonia with sputum culture positive for Pseudomonas complicated with COPD. Patient was treated in the course of his stay. Patient received IV antibiotic therapy Zosyn for 2 weeks. Patient has completed antibiotic therapy. At discharge patient will continue with incentive spirometer. Patient will continue with COPD medication Pulmicort 1 puff twice daily and Spiriva 1 puff daily. Patient may continue with albuterol as needed for shortness of breath. At discharge patient will go to skilled facility to continue his care. Recommend follow up with pulmonology in 1-2 weeks to follow up this hospitalization. Patient also found have sacral decubitus stage III with wound culture positive for Pseudomonas and E coli-ESBL. Patient seen evaluated by infectious disease. Wound has significantly improved on IV antibiotic therapy. No IV antibiotic therapy needed at this time. Patient will continue with current wound care. Recommend follow up with infectious disease in 2-4 weeks to monitors progress. Patient will continue with current wound care at this time. Patient be provided tramadol 50 mg 1 pill 3 times a day as needed for pain. Patient with liver cirrhosis with recurrent ascites. Patient required paracentesis during his stay. At discharge patient will continue with 1500 cc per day fluid restriction and low-salt diet. Patient will continue with diuretic therapy-torsemide 20 mg 1 pill twice daily. Recommend a follow up with PCP to further monitor. Patient may require recurrent paracentesis. This can be done and arranged as an outpatient with the help of his PCP. Patient with dysphagia. Found to have Cricopharyngeal dysfunction. Patient seen and evaluated by ENT. No intervention needed at this time. Continue with current dietary changes. Follow up with speech pathology as an outpatient. Patient with chronic constipation. Patient received ducolax suppository. At discharge he will continue with probiotic twice daily. Patient may continue with lactulose twice daily as needed for constipation. Patient with acute on chronic renal disease stage III. This has remained stable during the course of his stay. Recommend no further use of nonsteroidal anti-inflammatories. Future medications will need to be renally dosed. Recommend follow up with nephrology as an outpatient to further monitor. Recommend to recheck lab-BMP in 2-4 weeks. Patient with diabetes mellitus type 2 [id number]. Metformin has been discontinued due to chronic renal disease. A1c 6.0. No need for medication at this time. Will recommend to monitor blood sugars twice daily. Patient may continue with sliding scale at the skilled facility. If blood sugars remain above 200 consistently patient may be started on medication but not on metformin. This can be further addressed by his PCP. Recommend to maintain blood sugars less 140 fasting less than 200 after meals. Patient with atrial fibrillation not on chronic anti anti coagulation therapy. Patient will continue with amiodarone 200 mg 1 pill twice daily. Patient has large abdominal aortic aneurysm measuring 3.9 x 4.6 cm. Recommend follow up with cardiology to further monitor. Recommend recheck ultrasound within 3-6 months to monitors progress. Vital Signs/Physical Exam: Temp Pulse Resp BP Pulse Ox 97.9 F 85 20 144/88 H 95 05/01/19 12:00 05/01/19 12:00 05/01/19 12:00 05/01/19 12:00 05/01/19 12:00 General: Alert, In no apparent distress, Oriented x3, Cooperative HEENT: Atraumatic Neck: Supple Respiratory: Clear to auscultation bilaterally, Normal air movement Cardiovascular: Normal pulses, Regular rate/rhythm Gastrointestinal: No masses, No rebound, No guarding, Ascites Integumentary: No cyanosis Neurological: Normal speech, Normal strength at 5/5 x4 extr, Normal tone Laboratory Data at Discharge: WBC 7.2 K/uL (4.3-10.9) 05/01/19 04:45 Hgb 9.4 g/dL (13.6-17.9) L 05/01/19 04:45 Hct 28.3 % (39.6-49.0) L 05/01/19 04:45 Plt Count 245 K/uL (152-406) D 05/01/19 04:45 PT 13.3 SECONDS (9.5-12.5) H 04/19/19 13:04 INR 1.13 04/19/19 13:04 APTT 35.3 SECONDS (24.3-36.9) 04/19/19 13:04 Sodium 138 mmol/L (136-145) 05/01/19 04:45 Potassium 4.1 mmol/L (3.5-5.1) 05/01/19 04:45 BUN 28 mg/dL (7-18) H 05/01/19 04:45 Creatinine 1.67 mg/dL (0.55-1.3) H 05/01/19 04:45 Glucose 111 mg/dL (74-106) H 05/01/19 04:45 Phosphorus 3.7 mg/dL (2.5-4.9) 04/28/19 04:35 Magnesium 2.1 mg/dL (1.8-2.4) 05/01/19 04:45 Total Bilirubin 0.5 mg/dL (0.2-1.0) 04/30/19 04:30 AST 58 U/L (15-37) H 04/30/19 04:30 ALT 40 U/L (12-78) 04/30/19 04:30 Alkaline Phosphatase 255 U/L (45-117) H 04/30/19 04:30 Triglycerides 118 mg/dL (<150) 04/17/19 07:06 Cholesterol 110 mg/dL (<200) 04/17/19 07:06 HDL Cholesterol 22 mg/dL (40-60) L 04/17/19 07:06 Cholesterol/HDL Ratio 5.00 04/17/19 07:06 Lipase 51 U/L (73-393) L 04/16/19 16:32 Home Medications: Amiodarone HCl [Cordarone*] 200 mg PO BID 04/16/19 Budesonide [Pulmicort Flexhaler] 1 puff IH BID 04/16/19 Cyclobenzaprine HCl [Flexeril] 5 mg PO BEDTIME 04/16/19 Hydrocodone Bit/Acetaminophen [Hydrocodon-Acetaminoph 7.5-325] 1 tab PO Q6HP PRN 04/16/19 Potassium Chloride 20 meq PO BID 04/16/19 Tiotropium [place] [Spiriva Respimat] 1 puff IH BID 04/16/19 Albuterol Neb [Proventil 0.083% Neb Soln] 2.5 mg NEB [id number] amp 04/26/19 Glucerna Shake [Glucerna*] 237 ml PO BID can 04/26/19 Acidophilus/Bifido Longum [Lactobacillus Capsule] 1 mg PO BID #60 capsule Lactulose [Cephulac*] 30 ml PO BID PRN #1 bottle 05/01/19 Medihoney [Medihoney Woundcare Gel*] 1 appl TOP 1700 #1 tube 05/01/19 Torsemide [Demadex*] 20 mg PO BID #60 tab 05/01/19 traMADol HCL [Ultram*] 50 mg PO TID PRN #30 tab 05/01/19 New Medications: Acidophilus/Bifido Longum [Lactobacillus Capsule] 1 mg PO BID #60 capsule Lactulose [Cephulac*] 30 ml PO BID PRN #1 bottle PRN Reason: Constipation Medihoney [Medihoney Woundcare Gel*] 1 appl TOP 1700 #1 tube Torsemide [Demadex*] 20 mg PO BID #60 tab traMADol HCL [Ultram*] 50 mg PO TID PRN #30 tab PRN Reason: Pain Scale 5-7 (Moderate) Patient Discharge Instructions: 1. Patient will go to senior living facility. 2. Patient presented cough, shortness of breath secondary to aspiration pneumonia with sputum culture positive for Pseudomonas complicated with COPD. Patient was treated in the course of his stay. Patient received IV antibiotic therapy Zosyn for 2 weeks. Patient has completed antibiotic therapy. At discharge patient will continue with incentive spirometer. Patient will continue with COPD medication Pulmicort 1 puff twice daily and Spiriva 1 puff daily. Patient may continue with albuterol as needed for shortness of breath. At discharge patient will go to skilled facility to continue his care. Recommend follow up with pulmonology in 1-2 weeks to follow up this hospitalization. 3. Patient also found have sacral decubitus stage III with wound culture positive for Pseudomonas and E coli-ESBL. Patient seen evaluated by infectious disease. Wound has significantly improved on IV antibiotic therapy. No IV antibiotic therapy needed at this time. Patient will continue with current wound care. Recommend follow up with infectious disease in 2-4 weeks to monitors progress. Patient will continue with current wound care at this time. Patient be provided tramadol 50 mg 1 pill 3 times a day as needed for pain. 4. Patient with liver cirrhosis with recurrent ascites. Patient required paracentesis during his stay. At discharge patient will continue with 1500 cc per day fluid restriction and low-salt diet. Patient will continue with diuretic therapy-torsemide 20 mg 1 pill twice daily. Recommend a follow up with PCP to further monitor. Patient may require recurrent paracentesis. This can be done and arranged as an outpatient with the help of his PCP. 5. Patient with dysphagia. Found to have Cricopharyngeal dysfunction. Patient seen and evaluated by ENT. No intervention needed at this time. Continue with current dietary changes. Follow up with speech pathology as an outpatient. 6. Patient with chronic constipation. Patient received ducolax suppository. At discharge he will continue with probiotic twice daily. Patient may continue with lactulose twice daily as needed for constipation. 7. Patient with acute on chronic renal disease stage III. This has remained stable during the course of his stay. Recommend no further use of nonsteroidal anti-inflammatories. Future medications will need to be renally dosed. Recommend follow up with nephrology as an outpatient to further monitor. Recommend to recheck lab-BMP in 2-4 weeks. 8. Patient with diabetes mellitus type 2 [id number]. Metformin has been discontinued due to chronic renal disease. A1c 6.0. No need for medication at this time. Will recommend to monitor blood sugars twice daily. Patient may continue with sliding scale at the [facility] facility. If blood sugars remain above 200 consistently patient may be started on medication but not on metformin. This can be further addressed by his PCP. Recommend to maintain blood sugars less 140 fasting less than 200 after meals. 9. Patient with atrial fibrillation not on chronic anti anti coagulation therapy. Patient will continue with amiodarone 200 mg 1 pill twice daily. 10. Patient has large abdominal aortic aneurysm measuring 3.9 x 4.6 cm. Recommend follow up with cardiology to further monitor. Recommend recheck ultrasound within 3-6 months to monitors progress. Diet: ADA Activity: Ad cesar Followup: Fadi Flores MD [ACTIVE - CAN ADMIT] - Hilary Felipe MD [ACTIVE - CAN ADMIT] - Time spent managing pt's care (in minutes): 55
[2019-05-01] MEDS: TRAMADOL HCL 50 MG TAB PO PRN ×2 (15:08→20:52)
[2019-05-01] MEDS: MEDIHONEY 44 ML TOPICAL TUBE TOP SCH (17:00)
[2019-05-01] MEDS ORDERED: BISACODYL 10 MG RECTAL SUPP PR ONE (17:09)
[2019-05-01] MEDS: CYCLOBENZAPRINE 10 MG TAB PO SCH (20:51)
[2019-05-02 05:31] LABS: Absolute Lymphocytes (CBC) 1.5 K/uL (0.7-4.9); Basophils % 0.9 % (0-1.3); Hematocrit 28.1 % (39.6-49.0); Lymphocytes % 22.5 % (15.3-44.8); MPV 8.6 fL (7.6-11.3); RBC Red Blood Cell Count 2.82 M/uL (4.33-5.43)
[2019-05-02 05:38] LABS: Albumin 1.7 g/dL (3.4-5.0); Bilirubin Total 0.6 mg/dL (0.2-1.0); Magnesium 2.2 mg/dL (1.8-2.4); Potassium 3.5 mmol/L (3.5-5.1); Protein, Total 4.5 g/dL (6.4-8.2)
[2019-05-02] MEDS: INSULIN -REGULAR HUMAN 50 UNIT/0.5 ML ML SQ SCH ×4 (07:30→21:00)
[2019-05-02] MEDS: JUVEN PACKET PO SCH ×2 (09:00→21:00)
[2019-05-02] MEDS ORDERED: POTASSIUM CL SA 10 MEQ TAB PO ONE (09:00)
[2019-05-02] MEDS: HOME MED 1 EA UNK (Tiotropium Bromide [Spiriva Respimat] 1 PUFF) IH SCH ×2 (09:00→20:58)
[2019-05-02] MEDS: BUDESONIDE IH SCH ×2 (09:00→20:57)
[2019-05-02] MEDS: GLUCERNA SHAKE 237 ML CAN PO SCH ×2 (09:00→21:00)
[2019-05-02] MEDS: LACTULOSE 20 GM/30 ML UCUP PO SCH ×2 (09:12→21:00)
[2019-05-02] MEDS: HYDROCODONE/APAP 7.5/325 MG TAB PO PRN (09:12)
[2019-05-02] MEDS: LACTOBACILLUS/ACIDOPHILUS TAB PO SCH ×2 (09:12→21:00)
[2019-05-02] MEDS: AMIODARONE HCL 200 MG TAB PO SCH ×2 (09:12→21:30)
[2019-05-02] MEDS: TORSEMIDE 20 MG TAB PO SCH ×2 (09:12→21:00)
--- NOTE | 2019-05-02 10:48 | RAD REPORT ---
EXAM DESCRIPTION: RAD - Abdomen 1 View (KUB) - 05/02/2019 10:29 am CLINICAL HISTORY: abdominal tenderness, constipation COMPARISON: Abdomen Pelvis Wo Contrast dated 04/17/2019 FINDINGS: Multiple distended and dilated small bowel loops are present. Air in stool are present in the rectum. Colon appears to be mostly decompressed on these images. No free air or pneumatosis confi rmed. Ascites is present similar to the April 17 CT study. No suspicious calcifications. IMPRESSION: Multiple distended and dilated small bowel loops without free air or pneumatosis. Findings probably represent a prominent ileus. Developing small bowel obstruction cannot be excluded. Ascites similar to CT imaging.
[2019-05-02] MEDS: TRAMADOL HCL 50 MG TAB PO PRN (12:50)
[2019-05-02] MEDS: NA CHLORIDE 0.9% 1,000 ML IV SCH (14:26)
[2019-05-02] MEDS: HYDROMORPHONE HCL 0.5 MG/0.5 ML INJ IV PRN ×3 (15:08→22:55)
[2019-05-02] MEDS: MEDIHONEY 44 ML TOPICAL TUBE TOP SCH (19:02)
--- NOTE | 2019-05-02 19:18 | RAD REPORT ---
EXAM DESCRIPTION: CT - Abdomen Pelvis Wo Contrast - 05/02/2019 5:46 pm CLINICAL HISTORY: Partial SBO COMPARISON: Abdomen Pelvis Wo Contrast dated 04/17/2019; CT ABD PELVIS W WO CONTRAST dated 06/23/19 14 TECHNIQUE: Axial [address] imaging of the abdomen and pelvis was performed without IV contrast. No IV contrast was given because of allergy, abnormal renal function, patient refusal or physician re quest. Acute selection oral contrast administered. All CT scans are performed using dose optimization technique as appropriate and may include automated exposure control or mA/KV adjustment according to patient size. FINDINGS: Large left-side and moderate right-sided pleural effusions are present with lower lobe ate lectasis. There is a 16 millimeter nodular focus in the right lateral lung base that needs ongoing mo nitoring. This was present on the short interval study. A few additional small areas of nodularity ar e present. No pericardial effusion. No focal liver lesion is seen. Gallbladder and biliary tree show no suspicious findings. No pancreati c acute finding. There is heterogeneity in in the spleen. Assessment is limited in the absence of con trast. Bilateral hydronephrosis and hydroureter present. An obstructing calculus is not identified. Urinary bladder is only partially filled. Punctate bladder calculi seen posterior left side. No significant adrenal finding. Isodense renal masses and pyelonephritis cannot be excluded in the absence of IV con trast. Prostate gland is not abnormally enlarged. No gastric dilatation or gastric wall thickening. Multiple dilated small bowel loops are present. The re is transition in the distal ileum but a discrete mass or point of obstruction is not identifiable. No appendicitis findings. There is a large amount of stool distending the right-side of the colon. A n acute colon process is not identified. No free air or pneumatosis. Moderately large volume of ascites is present in the patient has signifi cant fluid retention in the subcutaneous fatty tissues. No hernia, mass or bulky lymphadenopathy. Disc and bony degenerative changes are present. Dense arterial tree calcifications are present. Infrarenal abdominal aortic aneurysm is present measu ring 3.9 cm AP x 4.6 cm TR. This is not substantially different from the mid April study. Assessme nt is limited in the absence of contrast. IMPRESSION: Multiple dilated small bowel loops. Transition occurs in the distal ileum but a discrete mass is not identified. This small bowel obstruction pattern could be from adhesions or internal her jama. No free air or pneumatosis. Large amount of stool is present distending the right-side of the colon. Large volume of ascites, extensive subcutaneous fluid retention and significant bilateral pleural eff usions. Additional nonacute findings detailed in the body of the report. Full assessment is limited is the absence of IV contrast.
[2019-05-02] MEDS: CYCLOBENZAPRINE 10 MG TAB PO SCH (21:00)
--- NOTE | 2019-05-02 21:28 | CON ---
Date of Consultation: 05/02/2019 Brief History Of Present Illness: Patient is a 74-year-old male with a history of COPD, chronic resp iratory failure, atrial fibrillation, pneumonia, pancreatic cancer, lung nodules, who presents to the hospital with respiratory issues. He was being treated for multiple medical problems during his adm ission here and was admitted on 04/16/2019. He had difficulty swallowing. He had aspiration pneumon ia on his admission. He had dysphagia on admission as well. He recently noted to have increasing abdominal pain. His las t paracentesis was 04/26 of this last month and he noted worsening abdominal pain. His last bowel mo vement was approximately 3 days ago. He has not been passing gas at that time. No nausea, no vomiti ng, but worsening abdominal pain have occurred. He had a KUB, which showed an ileus versus possible early small-bowel obstruction. Past Surgical History: Includes carotid endarterectomy, appendectomy, and multiple paracentesis. He is unsure if he has a history of cirrhosis but does not believe so. Home Medications: Include amiodarone, Pulmicort, Flexeril, Lasix, [place], metformin, KCl, Spiriva, Zo syn, Pradaxa. Allergies: NO KNOWN DRUG ALLERGIES. Past Medical History: Includes acute kidney injury, lactic acidosis, anemia. Social History: He is a former tobacco user, 10-point review of systems other than HPI denies. Physical Examination: At time of my examination: Vital Signs: His BMI is 18.1. His blood pressure was 148/96, pulse 85, respiratory rate 18, tempera ture 98.3, SpO2 was 92% on 2 L nasal cannula. General: He is awake, alert, and oriented. Psychiatric: Appropriate. Conversive. HEENT: Normocephalic. Sclerae icteric. Mucous membranes are moist. Oropharynx clear. Neck: Supple. No JVD. Chest: Normal expansion and excursion. CARDIOVASCULAR: Regular rate and rhythm. Pulmonary: Clear to auscultation bilaterally. Abdomen: Soft with mild global tenderness to palpation. There is fluidic appearance. His abdomen i s distended with fluid. Extremities: 2+ edema in bilateral lower extremities. Laboratory Data: Reveals a white blood count of 6.8, hemoglobin 9.2, hematocrit 28.1, platelet count is 235. His neutrophils are normal at 63%. His sodium 140, potassium 3.5, chloride 106, carbon amy xide 28, BUN 27, creatinine 1.6, glucose is 64, magnesium 2.2. AST is 44, ALT 34, alkaline phosphata se is 233. His albumin was 1.7. He had imaging, which included a KUB today which was officially read as multiple distended and dilate d small bowel loops without free air or pneumatosis. Findings probably represent a probable ileus, d eveloping small bowel obstruction cannot be excluded. Ascites, similar to CT imaging. He had a CT o n 04/17, which was officially read as large volume ascites. Patient also has substantial subcutaneou s fluid retention as well as small right-sided and moderate left-sided pleural effusion. No cardiome shaan is present. Anasarca pattern may be cardiac in origin. Cirrhosis or diffuse hepatic parenchyma l disease. No focality of the lesions provided and history indicates pancreatic cancer. The pancrea tic mass is identified, there may be postsurgical changes at the tail. Full assessment is limited by the absence of IV contrast. Assessment And Plan: This is a 74-year-old male who comes in with an ileus versus possible early sma ll bowel obstruction. 1.IV fluid hydration. 2.Medical management. 3.CT scan, abdomen and pelvis, with p.o. contrast. 4.To continue n.p.o. status. 5.I suspect the patient will likely need another paracentesis. 6.Continue respiratory optimization. 7.I explained the risks, benefits, and alternatives of operative versus nonoperative management and that the patient will be likely increased risk for surgical intervention as he has an active history of cancer, possible cirrhosis/ascites, and his multiple medical comorbidities. He has stated he does not want any surgical intervention at this time and as such, he would like to continue doing nonoper ative management. I recommend serial abdominal exams to continue and follow up CT. RAN/[place] Voice ID: [id number] Report ID: [id number]
[2019-05-03] MEDS: NA CHLORIDE 0.9% 1,000 ML IV SCH ×2 (03:47→18:22)
[2019-05-03 05:05] LABS: Potassium 4.3 mmol/L (3.5-5.1)
[2019-05-03 05:07] LABS: Absolute Lymphocytes (CBC) 1.5 K/uL (0.7-4.9); Basophils % 0.5 % (0-1.3); Hematocrit 27.3 % (39.6-49.0); Lymphocytes % 16.6 % (15.3-44.8); MPV 8.6 fL (7.6-11.3); RBC Red Blood Cell Count 2.74 M/uL (4.33-5.43)
[2019-05-03] MEDS ORDERED: GLUCAGON 1 MG/VIAL IM PRN (05:56)
[2019-05-03] MEDS ORDERED: D50W 25 GM/50 ML SYRINGE/VIAL IV PRN (05:56)
[2019-05-03] MEDS: INSULIN -REGULAR HUMAN 50 UNIT/0.5 ML ML SQ SCH ×3 (06:00→18:00)
--- NOTE | 2019-05-03 06:17 | P.PN ---
Subjective Date of Service: 05/03/19 Primary Care Provider: [facility]; Onc-Dr. Martinez Chief Complaint: Generalized weakness, inability to swallow. Patient feels better, passing gas, no BM, pain improving, no nausea or emesis Physical Examination - Vital Signs Temperature: 98.6 F Blood Pressure: 127/76 Pulse: 89 Respirations: 20 Pulse Ox (%): 93 - Physical Exam General: Alert, In no apparent distress, Cooperative Gastrointestinal: Other (soft, distended, minimal global TTP, no rebound, no peritoneal signs), Succussion splash, Ascites - Studies Medications List Reviewed: Yes Assessment And Plan - Current Problems (Diagnosis) (1) Ileus Current Visit: Yes Status: Acute Plan: 74 year old man with ileus vs PSBO - patient has stated he does not want surgery at this time, and will not agree to surgery even if it means he can from this condition - I have explained the risks, benefits, and alternatives to operative vs non- operative management. - will attempt tap water enemas as there is a large stool burden seen on recent CT - continues to have large volume ascites - serial exams - continue medical management Physician Review: Patient Assessed, Agree with Above Assessment and Plan Physician Review Additional Text: # Aspiration pna - still improving , completed zosyn course - 02 down to 4 L , continue to wean -c/w mucolytics and nebs prn # Ascities- on diuretics , no need for tap today # Constipation -start lactulose bid # Sacral decub with psuedomonas ESBL - on therapy , on acetic acid dsg # Liver cirrhosis with recurrent Ascites - improving , s/p tap 04/26 -c/w diuretics # Atrial fib - not on A/C # Anemia- improving to 9.4 # Dysphagia with ENT findings of cricopharyngeal dysfunction and possible injection with botox for therapy -pt refused but tolerating po well now # Weakness- follow plan for SNF
[2019-05-03] MEDS ORDERED: BISACODYL 10 MG RECTAL SUPP PR PRN (06:20)
[2019-05-03] MEDS: HYDROMORPHONE HCL 0.5 MG/0.5 ML INJ IV PRN ×3 (08:16→20:45)
[2019-05-03] MEDS: GLUCERNA SHAKE 237 ML CAN PO SCH ×2 (09:00→21:00)
[2019-05-03] MEDS: HOME MED 1 EA UNK (Tiotropium Bromide [Spiriva Respimat] 1 PUFF) IH SCH ×2 (09:00→20:14)
[2019-05-03] MEDS: JUVEN PACKET PO SCH ×2 (09:00→21:00)
[2019-05-03] MEDS: BUDESONIDE IH SCH ×2 (09:00→20:13)
[2019-05-03] MEDS: LACTOBACILLUS/ACIDOPHILUS TAB PO SCH ×2 (09:51→20:52)
[2019-05-03] MEDS: TORSEMIDE 20 MG TAB PO SCH ×2 (09:51→20:51)
[2019-05-03] MEDS: AMIODARONE HCL 200 MG TAB PO SCH ×2 (09:52→20:42)
[2019-05-03] MEDS: LACTULOSE 20 GM/30 ML UCUP PO SCH ×2 (09:52→20:41)
--- NOTE | 2019-05-03 10:18 | P.PN ---
Subjective Date of Service: 05/02/19 Patient was given multiple laxatives and suppository but no bowel movement the day before. Will get x-ray to further evaluate. Review of Systems 10-point ROS is otherwise unremarkable Physical Examination - Vital Signs Temperature: 99.3 F Blood Pressure: 154/82 Pulse: 86 Respirations: 20 Pulse Ox (%): 98 - Physical Exam General: Alert, In no apparent distress, Oriented x3 Respiratory: Clear to auscultation bilaterally, Normal air movement Cardiovascular: No edema, Normal pulses, Regular rate/rhythm Gastrointestinal: Hypoactive, No rebound, Distended, Tenderness, Guarding Musculoskeletal: No clubbing, No swelling Integumentary: No rashes - Studies Medications List Reviewed: Yes Assessment & Plan - Problems (Diagnosis) (1) Ileus Current Visit: Yes Status: Acute (2) SBO (small bowel obstruction) Current Visit: Yes Status: Acute (3) Anemia Current Visit: Yes Status: Acute (4) Ileus Current Visit: Yes Status: Acute (5) Moderate protein-calorie malnutrition Current Visit: Yes Status: Acute (6) Pancreatic cancer Current Visit: Yes Status: Acute (7) Sacral decubitus ulcer, stage II Current Visit: Yes Status: Acute (8) Atrial fibrillation Current Visit: Yes Status: Chronic - Plan Plan: 1. Await for to long-term facility once patient has a bowel movement. Abdomen is distended and will get x-rays. May need surgical consultation. Would discuss with patient on a holding off pain medication as well. Patient has pancreatic cancer with possible metastasis they should consider hospice care. Currently patient is debilitated and not really able to tolerate chemotherapy. Long-term prognosis remains poor. Discharge Plan: Home Plan to discharge in: 48 Hours - Advance Directives Does patient have a Living Will: No Does patient have a Durable POA for Healthcare: No - Code Status/Comfort Care Code Status Assessed: Yes Code Status: Full Code Physician Review: Patient Assessed, Agree with Above Assessment and Plan Critical Care: No Time Spent Managing PTS Care (In Minutes): 40
--- NOTE | 2019-05-03 14:02 | P.PN ---
Subjective Date of Service: 05/03/19 Primary Care Provider: [facility]; Onc-Dr. Martinez Chief Complaint: Generalized weakness, inability to swallow. Subjective: Improving, Doing well Physical Examination - Vital Signs Temperature: 99.3 F Blood Pressure: 154/82 Pulse: 86 Respirations: 20 Pulse Ox (%): 98 - Physical Exam General: Alert HEENT: Atraumatic Neck: Supple Respiratory: Clear to auscultation bilaterally, Normal air movement Cardiovascular: Normal pulses, Regular rate/rhythm Gastrointestinal: Normal bowel sounds, Soft and benign, No tenderness, No masses , No rebound, Ascites Neurological: Normal speech - Studies Medications List Reviewed: Yes Assessment & Plan Discharge Plan: Other (jail facility) Plan to discharge in: 24 Hours Physician Review Additional Text: Impression: Ileus Aspiration pneumonia with sputum culture positive for Pseudomonas complicated with COPD Sacred a cubitus stage III with wound culture positive for Pseudomonas and E coli-ESBL Liver cirrhosis with recurrent ascites status post paracentesis Anemia of chronic disease Dysphagia with cricopharyngeal dysfunction Constipation Acute on chronic renal disease stage 3 Diabetes mellitus type 2 [id number] Atrial fibrillation not on chronic anti coagulation therapy Large infrarenal abdominal aortic aneurysm 3.9 cm x 4.6 cm Plan: Ileus: Patient is seen by surgery. Patient does not want surgery if indicated. Continue with ice chips and advance diet as tolerated especially if tolerating diet. Patient will go to SNF once able to tolerate diet and has BM. Aspiration pneumonia with sputum culture positive for Pseudomonas complicated with COPD: Has completed antibiotics and continue with COPD meds. Sacral decubitus stage III with wound culture positive for Pseudomonas and E coli-ESBL: Continue with wound care. Liver cirrhosis with recurrent ascites status post paracentesis: Stable. Anemia of chronic disease: Monitor. Dysphagia with cricopharyngeal dysfunction: Stable Constipation: As above Acute on chronic renal disease stage 3: Stable Diabetes mellitus type 2 [id number]: Continue with meds Atrial fibrillation not on chronic anti coagulation therapy: Continue meds Large infrarenal abdominal aortic aneurysm 3.9 cm x 4.6 cm: Monitor and is outpatient Time Spent Managing Pts Care (In Minutes): 55
[2019-05-03] MEDS: MEDIHONEY 44 ML TOPICAL TUBE TOP SCH (16:25)
--- NOTE | 2019-05-03 20:04 | PN ---
Subjective: Patient having problem with bowel obstruction. The CT scan done yesterday showed patien t has multiple dilated bowel loops, transition occurs in the distal ileum, but a discrete mass is not identified. The small bowel obstruction pattern could be from addition or internal hernia. No free air or pneumatosis. Large amount of stool is present distending the right side of colon, large volu me of ascites, extensive subcutaneous fluid retention, and significant bilateral pleural effusions. Laboratory Data: Shows WBC 8.9, hemoglobin 9.1, platelets 253. Chemistry shows sodium 140, potassiu m 4.3, chloride 106, bicarb 25, BUN 26, creatinine 1.68, glucose 88. Current Medications: No antibiotics. Assessment And Plan: Small bowel obstruction, status post treatment of Pseudomonas pneumonia and con tinued to have buttock wounds at stage III. Continue current treatment. We will follow patient clos leti. Consider starting TPN for nutrition. NF/MODL Voice ID: [id number] Report ID: [id number]
[2019-05-03] MEDS: CYCLOBENZAPRINE 10 MG TAB PO SCH (21:00)
[2019-05-04] MEDS: HYDROMORPHONE HCL 0.5 MG/0.5 ML INJ IV PRN ×2 (01:55→12:42)
[2019-05-04] MEDS: INSULIN -REGULAR HUMAN 50 UNIT/0.5 ML ML SQ SCH ×3 (06:00→12:00)
[2019-05-04 06:04] LABS: Absolute Lymphocytes (CBC) 1.4 K/uL (0.7-4.9); Basophils % 0.7 % (0-1.3); Hematocrit 25.8 % (39.6-49.0); MPV 8.5 fL (7.6-11.3); RBC Red Blood Cell Count 2.56 M/uL (4.33-5.43)
[2019-05-04 06:16] LABS: Magnesium 2.1 mg/dL (1.8-2.4); Potassium 3.8 mmol/L (3.5-5.1)
--- NOTE | 2019-05-04 08:32 | P.PN ---
Subjective Date of Service: 05/04/19 Primary Care Provider: [facility]; Onc-Dr. Martinez Chief Complaint: Generalized weakness, inability to swallow. Patient feels better, passing gas, + BM, pain improving, no nausea or emesis Physical Examination - Vital Signs Temperature: 98.2 F Blood Pressure: 123/77 Pulse: 82 Respirations: 16 Pulse Ox (%): 95 - Physical Exam General: Alert, In no apparent distress, Cooperative Gastrointestinal: Soft and benign, Succussion splash (improved distention, softer) - Studies Medications List Reviewed: Yes Assessment And Plan - Current Problems (Diagnosis) (1) Ileus Current Visit: Yes Status: Acute Plan: 74 year old man with ileus vs PSBO - patient has stated he does not want surgery at this time, and will not agree to surgery even if it means he can from this condition - I have explained the risks, benefits, and alternatives to operative vs non- operative management. - will attempt tap water enemas as there is a large stool burden seen on recent CT - continues to have large volume ascites - serial exams - continue medical management - full liquid diet and advance as tolerated Physician Review: Patient Assessed, Agree with Above Assessment and Plan Physician Review Additional Text: Impression: Ileus Aspiration pneumonia with sputum culture positive for Pseudomonas complicated with COPD Sacred a cubitus stage III with wound culture positive for Pseudomonas and E coli-ESBL Liver cirrhosis with recurrent ascites status post paracentesis Anemia of chronic disease Dysphagia with cricopharyngeal dysfunction Constipation Acute on chronic renal disease stage 3 Diabetes mellitus type 2 [id number] Atrial fibrillation not on chronic anti coagulation therapy Large infrarenal abdominal aortic aneurysm 3.9 cm x 4.6 cm Plan: Ileus: Patient is seen by surgery. Patient does not want surgery if indicated. Continue with ice chips and advance diet as tolerated especially if tolerating diet. Patient will go to SNF once able to tolerate diet and has BM. Aspiration pneumonia with sputum culture positive for Pseudomonas complicated with COPD: Has completed antibiotics and continue with COPD meds. Sacral decubitus stage III with wound culture positive for Pseudomonas and E coli-ESBL: Continue with wound care. Liver cirrhosis with recurrent ascites status post paracentesis: Stable. Anemia of chronic disease: Monitor. Dysphagia with cricopharyngeal dysfunction: Stable Constipation: As above Acute on chronic renal disease stage 3: Stable Diabetes mellitus type 2 [id number]: Continue with meds Atrial fibrillation not on chronic anti coagulation therapy: Continue meds Large infrarenal abdominal aortic aneurysm 3.9 cm x 4.6 cm: Monitor and is outpatient
[2019-05-04] MEDS ORDERED: KCL 20 MEQ/100 mL IVPB 20 MEQ/100 ML BAG IV SCH (09:00)
[2019-05-04] MEDS: BUDESONIDE IH SCH (09:00)
[2019-05-04] MEDS: HOME MED 1 EA UNK (Tiotropium Bromide [Spiriva Respimat] 1 PUFF) IH SCH (09:00)
--- NOTE | 2019-05-04 09:12 | PN ---
Subjective: Patient lying in bed. Denies any headache, nausea, vomiting, chest pain, abdominal pain, constipation, or diarrhea. Objective: Vital signs: Temperature is 99, pulse 88, respirations 20, blood pressure 130/81. Lungs: Basal crackles. Heart: S1, S2. Regular. Abdomen: Soft, nontender. Bowel sounds present. Extremity: No edema. Laboratory Data: WBC 7.2, hemoglobin 9.4, platelets are 235. Chemistry shows sodium 138, potassium 4.1, chloride 106, bicarb 36, BUN 28, creatinine 1.6, glucose . Assessment And Plan: Patient currently being treated with antibiotic and continue wound care today. We will follow patient closely. No new recommendation at this time . DARIEL/MODLuis Voice ID: [id number] Report ID: [id number] MTDD
[2019-05-04] MEDS: NA CHLORIDE 0.9% 1,000 ML IV SCH (09:30)
[2019-05-04] MEDS: LACTULOSE 20 GM/30 ML UCUP PO SCH (09:31)
[2019-05-04] MEDS: TORSEMIDE 20 MG TAB PO SCH (09:31)
[2019-05-04] MEDS: LACTOBACILLUS/ACIDOPHILUS TAB PO SCH (09:31)
[2019-05-04] MEDS: GLUCERNA SHAKE 237 ML CAN PO SCH (09:32)
[2019-05-04] MEDS: JUVEN PACKET PO SCH (09:32)
[2019-05-04] MEDS: AMIODARONE HCL 200 MG TAB PO SCH (09:35)
[2019-05-04] MEDS: TRAMADOL HCL 50 MG TAB PO PRN (10:25)
[2019-05-04 10:44] VITALS: O2SAT 91
[2019-05-04 13:20] VITALS: BP 120/81; TEMP 97.8
--- NOTE | 2019-05-04 13:21 | PN ---
Subjective: Patient is lying in bed. Family by the bedside complains of shortness of breath, especi ally after going to the bathroom. Patient is starting to have bowel movements. No other problems. Objective: Vital Signs: Temperature 98, pulse 82, respiration 19, blood pressure 123/77. Lungs: Basal crackles. Heart: S1, S2. Regular. Abdomen: Soft. Bowel sounds present. Extremities: No edema. Laboratory Data: WBC 7.4, hemoglobin 8.7, platelets 229. Chemistry shows sodium 140, potassium 3.8, chloride 107, bicarb 25, BUN 26, creatinine 1.7, glucose 83. Microbiology Data: Pseudomonas in sputum and Pseudomonas, E coli ESBL in buttock wound. Current Medications: Include no antibiotic as patient has completed his course for pneumonia. Assessment And Plan: Pneumonia with longstanding chronic obstructive pulmonary disease, status post antibiotic treatment. Local wound care to be continued locally. Monitor for signs of infection. Co nstipation resolved. We will follow the patient as needed. NF/MODL Voice ID: [id number] Report ID: [id number]
[2019-05-04] MEDS: HYDROCODONE/APAP 7.5/325 MG TAB PO PRN (16:41)
[2019-05-04] MEDS: MEDIHONEY 44 ML TOPICAL TUBE TOP SCH (16:42)
--- NOTE | 2019-05-04 19:01 | P.DS ---
Admission Date: 04/16/19 Discharge Date: 05/04/19 Primary Care Provider: [facility]; Onc-Dr. Martinez Disposition: TRANSFER TO SNF - MEDICAL Discharge Condition: FAIR Reason for Admission: Generalized weakness, inability to swallow. Consultations: Surgery Oncology Nephrology Procedures: CT scan: FINDINGS: Small right-side and moderate left-side pleural effusions incompletely evaluated. Bilateral lower lobe atelectasis present. No cardiomegaly or pericardial effusion. Liver has a nodular capsular contour and is small in size. No focal liver lesions identifiable. No splenomegaly or suspicious splenic finding. No acute pancreatic process suspected. Gallbladder is not dilated. Gallbladder is isodense to the ascites that is present. No biliary tree dilatation. Left renal pelvic dilatation is present without obstructing calculus. And nonobstructing 7 mm calculus is present in the upper pole. No ureteral calculi seen. No right-sided hydronephrosis. No significant adrenal finding. Isodense renal masses and pyelonephritis cannot be excluded in the absence of IV contrast. Urinary bladder is mostly contracted. This accentuates wall thickness. Prostate gland is not enlarged. Stomach is distended by food. No dilated small bowel loops. Colon is not dilated. Patient has contrast in distal small bowel loops from earlier modified barium swallow. No free air or pneumatosis. Large volume of ascites present. No omental thickening. Patient has significant fluid retention in the subcutaneous fatty tissues. No bulky lymphadenopathy. A large infrarenal abdominal aortic aneurysm is present 3.9 cm AP x 4.6 cm TR. Assessment is limited in the absence of contrast. No iliac aneurysm. No suspicious bony findings. IMPRESSION: Large volume of ascites. Patient also has substantial subcutaneous fluid retention as well as small right-side and moderate left-side pleural effusions. No cardiomegaly is present. Anasarca pattern may not be cardiac in origin. Cirrhosis or diffuse hepatic parenchymal disease. No focal liver lesion. Provided history indicates pancreatic cancer. No pancreatic mass is identified. There may be postsurgical changes at the tail. Full assessment is limited is the absence of IV contrast. Impression: Aspiration pneumonia with sputum culture positive for Pseudomonas complicated with COPD Sacral cubitus stage III with wound culture positive for Pseudomonas and E coli- ESBL Liver cirrhosis with recurrent ascites status post paracentesis Anemia of chronic disease Dysphagia with cricopharyngeal dysfunction Constipation with ileus Acute on chronic renal disease stage 3 Diabetes mellitus type 2 [id number] Atrial fibrillation not on chronic anti coagulation therapy Large infrarenal abdominal aortic aneurysm 3.9 cm x 4.6 cm Pancreatic cancer with metastasis Brief History of Present Illness: 74-year-old male with multiple medical problems presented with multiple complaints. Patient had cough, congestion and mild shortness of breath. Patient also had decubitus ulcer. Patient was admitted for further evaluation. Hospital Course: Patient presented cough, shortness of breath secondary to aspiration pneumonia with sputum culture positive for Pseudomonas complicated with COPD. Patient was treated in the course of his stay. Patient received IV antibiotic therapy Zosyn for 2 weeks. Patient has completed antibiotic therapy. At discharge patient will continue with incentive spirometer. Patient will continue with COPD medication Pulmicort 1 puff twice daily and Spiriva 1 puff daily. Patient may continue with albuterol as needed for shortness of breath. At discharge patient will go to skilled facility to continue his care. Recommend follow up with pulmonology in 1-2 weeks to follow up this hospitalization. Patient also found have sacral decubitus stage III with wound culture positive for Pseudomonas and E coli-ESBL. Patient seen evaluated by infectious disease. Wound has significantly improved on IV antibiotic therapy. No IV antibiotic therapy needed at this time. Patient will continue with current wound care. Recommend follow up with infectious disease in 2-4 weeks to monitors progress. Patient will continue with current wound care at this time. Patient be provided tramadol 50 mg 1 pill 3 times a day as needed for pain. Patient with liver cirrhosis with recurrent ascites. Patient required paracentesis during his stay. At discharge patient will continue with 1500 cc per day fluid restriction and low-salt diet. Patient will continue with diuretic therapy-torsemide 20 mg 1 pill twice daily. Recommend a follow up with PCP to further monitor. Patient may require recurrent paracentesis. This can be done and arranged as an outpatient with the help of his PCP. Will discuss with PCP about arranging catheter placed to help with removal of fluid in the near future especially if the patient enters hospice. Patient with dysphagia. Found to have Cricopharyngeal dysfunction. Patient seen and evaluated by ENT. No intervention needed at this time. Continue with current dietary changes. Follow up with speech pathology as an outpatient. Patient with chronic constipation. During the course of his stay patient required enemas to help with this. Patient was to be discharge but this was held due to a ileus. Patient evaluated by surgery. No surgery intervention was required. Patient improved. At discharge has tolerated diet diet. Patient has had good bowel movement. Patient will continue with medication lactulose and stool softener. Patient with acute on chronic renal disease stage III. This has remained stable during the course of his stay. Recommend no further use of nonsteroidal anti-inflammatories. Future medications will need to be renally dosed. Recommend follow up with nephrology as an outpatient to further monitor. Recommend to recheck lab-BMP in 2-4 weeks. Patient with diabetes mellitus type 2 [id number]. Metformin has been discontinued due to chronic renal disease. A1c 6.0. No need for medication at this time. Will recommend to monitor blood sugars twice daily. Patient may continue with sliding scale at the [facility] facility. If blood sugars remain above 200 consistently patient may be started on medication but not on metformin. This can be further addressed by his PCP. Recommend to maintain blood sugars less 140 fasting less than 200 after meals. Patient with atrial fibrillation not on chronic anti anti coagulation therapy. Patient will continue with amiodarone 200 mg 1 pill twice daily. Patient has large abdominal aortic aneurysm measuring 3.9 x 4.6 cm. Recommend follow up with cardiology to further monitor. Recommend recheck ultrasound within 3-6 months to monitors progress. Patient with pancreatic cancer and metastasis. Case discussed at length with oncology. Oncology mentioned that his cancer is terminal. Advanced directives address in detail. Patient full code at this time. He is considering do not resuscitate and likely hospice in the near future. This was discussed with family members and daughter. They are very realistic of his current condition. Prognosis was addressed in detail by oncology. Oncology feels hospice is best option for him. This can be further addressed as an outpatient. Brief History of Present Illness: 74-year-old male with multiple medical problems presented with multiple complaints. Patient had cough, congestion and mild shortness of breath. Patient also had decubitus ulcer. Patient was admitted for further evaluation. Hospital Course: Patient presented cough, shortness of breath secondary to aspiration pneumonia with sputum culture positive for Pseudomonas complicated with COPD. Patient was treated in the course of his stay. Patient received IV antibiotic therapy Zosyn for 2 weeks. Patient has completed antibiotic therapy. At discharge patient will continue with incentive spirometer. Patient will continue with COPD medication Pulmicort 1 puff twice daily and Spiriva 1 puff daily. Patient may continue with albuterol as needed for shortness of breath. At discharge patient will go to skilled facility to continue his care. Recommend follow up with pulmonology in 1-2 weeks to follow up this hospitalization. Patient also found have sacral decubitus stage III with wound culture positive for Pseudomonas and E coli-ESBL. Patient seen evaluated by infectious disease. Wound has significantly improved on IV antibiotic therapy. No IV antibiotic therapy needed at this time. Patient will continue with current wound care. Recommend follow up with infectious disease in 2-4 weeks to monitors progress. Patient will continue with current wound care at this time. Patient be provided tramadol 50 mg 1 pill 3 times a day as needed for pain. Patient with liver cirrhosis with recurrent ascites. Patient required paracentesis during his stay. At discharge patient will continue with 1500 cc per day fluid restriction and low-salt diet. Patient will continue with diuretic therapy-torsemide 20 mg 1 pill twice daily. Recommend a follow up with PCP to further monitor. Patient may require recurrent paracentesis. This can be done and arranged as an outpatient with the help of his PCP. Patient with dysphagia. Found to have Cricopharyngeal dysfunction. Patient seen and evaluated by ENT. No intervention needed at this time. Continue with current dietary changes. Follow up with speech pathology as an outpatient. Patient with chronic constipation. Patient received ducolax suppository. At discharge he will continue with probiotic twice daily. Patient may continue with lactulose twice daily as needed for constipation. Patient with acute on chronic renal disease stage III. This has remained stable during the course of his stay. Recommend no further use of nonsteroidal anti-inflammatories. Future medications will need to be renally dosed. Recommend follow up with nephrology as an outpatient to further monitor. Recommend to recheck lab-BMP in 2-4 weeks. Patient with diabetes mellitus type 2 [id number]. Metformin has been discontinued due to chronic renal disease. A1c 6.0. No need for medication at this time. Will recommend to monitor blood sugars twice daily. Patient may continue with sliding scale at the skilled facility. If blood sugars remain above 200 consistently patient may be started on medication but not on metformin. This can be further addressed by his PCP. Recommend to maintain blood sugars less 140 fasting less than 200 after meals. Patient with atrial fibrillation not on chronic anti anti coagulation therapy. Patient will continue with amiodarone 200 mg 1 pill twice daily. Patient has large abdominal aortic aneurysm measuring 3.9 x 4.6 cm. Recommend follow up with cardiology to further monitor. Recommend recheck ultrasound within 3-6 months to monitors progress. Vital Signs/Physical Exam: Temp Pulse Resp BP Pulse Ox 97.8 F 89 19 120/81 91 05/04/19 12:00 05/04/19 12:00 05/04/19 16:41 05/04/19 12:00 05/04/19 16:41 General: Alert HEENT: Atraumatic Neck: Supple Respiratory: Clear to auscultation bilaterally, Normal air movement Cardiovascular: Normal pulses, Regular rate/rhythm Gastrointestinal: Normal bowel sounds, Soft and benign, Non-distended Integumentary: No erythema, Tenderness/swelling (To the lower extremities) Laboratory Data at Discharge: WBC 7.4 K/uL (4.3-10.9) D 05/04/19 05:00 Hgb 8.7 g/dL (13.6-17.9) L 05/04/19 05:00 Hct 25.8 % (39.6-49.0) L 05/04/19 05:00 Plt Count 229 K/uL (152-406) 05/04/19 05:00 PT 13.3 SECONDS (9.5-12.5) H 04/19/19 13:04 INR 1.13 04/19/19 13:04 APTT 35.3 SECONDS (24.3-36.9) 04/19/19 13:04 Sodium 140 mmol/L (136-145) 05/04/19 05:00 Potassium 3.8 mmol/L (3.5-5.1) 05/04/19 05:00 BUN 26 mg/dL (7-18) H 05/04/19 05:00 Creatinine 1.70 mg/dL (0.55-1.3) H 05/04/19 05:00 Glucose 83 mg/dL (74-106) 05/04/19 05:00 Phosphorus 3.7 mg/dL (2.5-4.9) 04/28/19 04:35 Magnesium 2.1 mg/dL (1.8-2.4) 05/04/19 05:00 Total Bilirubin 0.6 mg/dL (0.2-1.0) 05/02/19 04:53 AST 44 U/L (15-37) H 05/02/19 04:53 ALT 34 U/L (12-78) 05/02/19 04:53 Alkaline Phosphatase 233 U/L (45-117) H 05/02/19 04:53 Triglycerides 118 mg/dL (<150) 04/17/19 07:06 Cholesterol 110 mg/dL (<200) 04/17/19 07:06 HDL Cholesterol 22 mg/dL (40-60) L 04/17/19 07:06 Cholesterol/HDL Ratio 5.00 04/17/19 07:06 Lipase 51 U/L (73-393) L 04/16/19 16:32 Home Medications: Amiodarone HCl [Cordarone*] 200 mg PO BID 04/16/19 Budesonide [Pulmicort Flexhaler] 1 puff IH BID 04/16/19 Cyclobenzaprine HCl [Flexeril] 5 mg PO BEDTIME 04/16/19 Hydrocodone Bit/Acetaminophen [Hydrocodon-Acetaminoph 7.5-325] 1 tab PO Q6HP PRN 04/16/19 Potassium Chloride 20 meq PO BID 04/16/19 Tiotropium [place] [Spiriva Respimat] 1 puff IH BID 04/16/19 Albuterol Neb [Proventil 0.083% Neb Soln] 2.5 mg NEB [id number] amp 04/26/19 Glucerna Shake [Glucerna*] 237 ml PO BID can 04/26/19 Acidophilus/Bifido Longum [Lactobacillus Capsule] 1 mg PO BID #60 capsule Lactulose [Cephulac*] 30 ml PO BID PRN #1 bottle 05/01/19 Medihoney [Medihoney Woundcare Gel*] 1 appl TOP 1700 #1 tube 05/01/19 Torsemide [Demadex*] 20 mg PO BID #60 tab 05/01/19 traMADol HCL [Ultram*] 50 mg PO TID PRN #30 tab 05/01/19 New Medications: Acidophilus/Bifido Longum [Lactobacillus Capsule] 1 mg PO BID #60 capsule Lactulose [Cephulac*] 30 ml PO BID PRN #1 bottle PRN Reason: Constipation Medihoney [Medihoney Woundcare Gel*] 1 appl TOP 1700 #1 tube Torsemide [Demadex*] 20 mg PO BID #60 tab traMADol HCL [Ultram*] 50 mg PO TID PRN #30 tab PRN Reason: Pain Scale 5-7 (Moderate) Patient Discharge Instructions: 1. Patient will go to custodial facility. 2. Patient presented cough, shortness of breath secondary to aspiration pneumonia with sputum culture positive for Pseudomonas complicated with COPD. Patient was treated in the course of his stay. Patient received IV antibiotic therapy Zosyn for 2 weeks. Patient has completed antibiotic therapy. At discharge patient will continue with incentive spirometer. Patient will continue with COPD medication Pulmicort 1 puff twice daily and Spiriva 1 puff daily. Patient may continue with albuterol as needed for shortness of breath. At discharge patient will go to skilled facility to continue his care. Recommend follow up with pulmonology in 1-2 weeks to follow up this hospitalization. 3. Patient also found have sacral decubitus stage III with wound culture positive for Pseudomonas and E coli-ESBL. Patient seen evaluated by infectious disease. Wound has significantly improved on IV antibiotic therapy. No IV antibiotic therapy needed at this time. Patient will continue with current wound care. Recommend follow up with infectious disease in 2-4 weeks to monitors progress. Patient will continue with current wound care at this time. Patient be provided tramadol 50 mg 1 pill 3 times a day as needed for pain. 4. Patient with liver cirrhosis with recurrent ascites. Patient required paracentesis during his stay. At discharge patient will continue with 1500 cc per day fluid restriction and low-salt diet. Patient will continue with diuretic therapy-torsemide 20 mg 1 pill twice daily. Recommend a follow up with PCP to further monitor. Patient may require recurrent paracentesis. This can be done and arranged as an outpatient with the help of his PCP. 5. Patient with dysphagia. Found to have Cricopharyngeal dysfunction. Patient seen and evaluated by ENT. No intervention needed at this time. Continue with current dietary changes. Follow up with speech pathology as an outpatient. 6. Patient with chronic constipation. Patient was treated for ileus during the course of his stay. At discharge patient has had good bowel movement. Patient able tolerate diet. Patient received ducolax suppository. At discharge he will continue with probiotic twice daily. Patient may continue with lactulose twice daily as needed for constipation. 7. Patient with acute on chronic renal disease stage III. This has remained stable during the course of his stay. Recommend no further use of nonsteroidal anti-inflammatories. Future medications will need to be renally dosed. Recommend follow up with nephrology as an outpatient to further monitor. Recommend to recheck lab-BMP in 2-4 weeks. 8. Patient with diabetes mellitus type 2 [id number]. Metformin has been discontinued due to chronic renal disease. A1c 6.0. No need for medication at this time. Will recommend to monitor blood sugars twice daily. Patient may continue with sliding scale at the skilled facility. If blood sugars remain above 200 consistently patient may be started on medication but not on metformin. This can be further addressed by his PCP. Recommend to maintain blood sugars less 140 fasting less than 200 after meals. 9. Patient with atrial fibrillation not on chronic anti anti coagulation therapy. Patient will continue with amiodarone 200 mg 1 pill twice daily. 10. Patient has large abdominal aortic aneurysm measuring 3.9 x 4.6 cm. Recommend follow up with cardiology to further monitor. Recommend recheck ultrasound within 3-6 months to monitors progress. Diet: ADA Activity: Ad cesar Followup: Ramirez Frederick MD [ACTIVE - CAN ADMIT] - 1-2 Weeks (able bodied watchman-call to schedule an appointment ) Fadi Flores MD [ACTIVE - CAN ADMIT] - (school counselor-call to schedule an appointment for office visit in 2-4 weeks. ) Dayo Juarez MD [ACTIVE - CAN ADMIT] - (Infectious Disease- Call to schedule an appointment for follow up visit in 2-4 weeks ) Time spent managing pt's care (in minutes): 55
== END 2019-05-04 17:10 | DRG 177 ==
LOC: ER 15:41 → ERHOLD 19:01 → 2ND 20:05
PROVIDERS: ADMIT Internal Medicine; ATTEND Family Medicine
PROC: 0W9G3ZZ Drainage of Peritoneal Cavity, Percutaneous Approach (ICD-10-PCS; principal; 2019-04-19)
PROC: 0W9G3ZZ Drainage of Peritoneal Cavity, Percutaneous Approach (ICD-10-PCS; 2019-04-26)
DX: J69.0 Pneumonitis due to inhalation of food and vomit (principal); L89.153 Pressure ulcer of sacral region, stage 3; N17.9 Acute kidney failure, unspecified; E44.0 Moderate protein-calorie malnutrition; C25.9 Malignant neoplasm of pancreas, unspecified; J96.10 Chronic respiratory failure, unspecified whether with hypoxia or hypercapnia; K56.7 Ileus, unspecified; I48.20 Chronic atrial fibrillation, unspecified; R18.8 Other ascites; Z68.1 Body mass index [BMI] 19.9 or less, adult; K74.60 Unspecified cirrhosis of liver; D64.9 Anemia, unspecified; R91.8 Other nonspecific abnormal finding of lung field; I45.10 Unspecified right bundle-branch block; S71.001A Unspecified open wound, right hip, initial encounter; B96.20 Unspecified Escherichia coli [E. coli] as the cause of diseases classified elsewhere; L89.621 Pressure ulcer of left heel, stage 1; Z99.81 Dependence on supplemental oxygen
CPT/HCPCS: 36415; 49083; 71045; 74018; 74176; 74230; 80048; 80053; 80061; 80076; 81003; 81015; 82728; 82947; 83036; 83540; 83605; 83690; 83735; 83880; 84100; 84132; 84443; 84466; 84484; 85025; 85610; 85730; 87040; 87070; 87077; 87086; 87088; 87186; 87205; 89050; 92610; 92611; 93005; 94640; 94760; 96361; 96365; 96366; 97110; 97116; 97161; 97530; 99285; J1170; J1650; J1940; J2185; J2543; J3010; J3430; J3475; J7030; J7040; J7042